=== PATIENT | male | born 1965 | race Caucasian/White ===

== ENCOUNTER 2019-03-03 12:14 | Emergency (ER) | payer SELFPAY ==
[2019-03-03] MEDS ORDERED: NA CHLORIDE 0.9% 1,000 ML ONE (13:45)
[2019-03-03] MEDS ORDERED: MORPHINE 4 MG/ML SYR ONE (13:45)
[2019-03-03] MEDS ORDERED: KETOROLAC 30 MG/ML INJ ONE (13:45)
[2019-03-03] MEDS ORDERED: ONDANSETRON 4 MG/2 ML VIAL ONE (13:57)
[2019-03-03 14:02] LABS: Absolute Lymphocytes (CBC) 1.6 K/uL (0.7-4.9); Basophils % 1.2 % (0-1.3); Hematocrit 38.9 % (39.6-49.0); Lymphocytes % 25.4 % (15.3-44.8); RBC Red Blood Cell Count 4.82 M/uL (4.33-5.43)
[2019-03-03 14:21] LABS: Albumin 3.3 g/dL (3.4-5.0); Bilirubin Total 0.3 mg/dL (0.2-1.0); Protein, Total 6.7 g/dL (6.4-8.2)
--- NOTE | 2019-03-03 14:35 | RAD REPORT ---
EXAM DESCRIPTION: CTSpine Lumbar Wo Con03/03/2019 1:59 pm CLINICAL HISTORY: Back injury with back pain and radiculopathy status post fall COMPARISON: None TECHNIQUE: Computed axial tomography lumbar spine was obtained with coronal and sagittal reconstruct ion. All CT scans are performed using dose optimization technique as appropriate and may include automated exposure control or mA/KV adjustment according to patient size. FINDINGS: No fracture is seen. No dislocation is noted. A significant bulging/disc herniation is not seen A 3 millimeter nonobstructing right renal calculus IMPRESSION: Negative for a lumbar fracture. If the patient continues to have symptoms to suggest spi nal canal pathology MRI would be recommended
[2019-03-03] MEDS ORDERED: dexAMETHasone 10 MG/ML VIAL ONE (14:52)
[2019-03-03] MEDS ORDERED: DIAZEPAM 5 MG TABLET ONE (14:53)
--- NOTE | 2019-03-03 14:57 | RAD REPORT ---
EXAM DESCRIPTION: RAD - Pelvis - 03/03/2019 2:39 pm CLINICAL HISTORY: Pelvic pain status post injury FINDINGS: No fracture or dislocation is seen.
--- NOTE | 2019-03-03 14:59 | RAD REPORT ---
EXAM DESCRIPTION: RAD - Hip Left 2 View - 03/03/2019 2:39 pm CLINICAL HISTORY: Left hip pain status post injury FINDINGS: No fracture or dislocation is seen.
--- NOTE | 2019-03-03 15:00 | RAD REPORT ---
EXAM DESCRIPTION: RAD - Femur Left - 03/03/2019 2:39 pm CLINICAL HISTORY: Left leg pain status post FINDINGS: No fracture is seen
--- NOTE | 2019-03-03 15:19 | ER ---
Nurse's Notes [facility] Name: Kalyan Banuelos Age: 53 yrs Sex: Male : 1965 Arrival Date: 03/03/2019 Time: 12:18 Bed 18 Private MD: Diagnosis: Fall due to bumping against object;Pain in left hip;Sciatica, left side Presentation: 03/03 12:18 Presenting complaint: Patient states: "I slipped and fell on wet floor and landed right aa5 on my left hip". Pt denies LOC, denies head injury, denies dizziness. Pt c/o left hip pain radiating down left leg. 12:18 Transition of care: patient was not received from another setting of care. Onset of aa5 symptoms was March 03, 2019. Risk Assessment: Do you want to hurt yourself or someone else? Patient reports no desire to harm self or others. Initial Sepsis Screen: Does the patient meet any 2 criteria? No. Patient's initial sepsis screen is negative. Does the patient have a suspected source of infection? No. Patient's initial sepsis screen is negative. Care prior to arrival: Medication(s) given: Fentanyl 100mcg IVP IV initiated. 20 GA, in the right antecubital area, Glucose check: 188. 12:18 Acuity: FREDERICK 3 aa5 12:18 Method Of Arrival: EMS: [facility] aa5 12:18 Mechanism of Injury: Fall from standing position. Trauma event details: Injury occurred aa5 in the [facility], Injury occurred: March 03, 2019. Trauma Activation: Not Applicable Physician: ED Physician; Name: ; Notified At: ; Arrived At: Physician: General Surgeon; Name: ; Notified At: ; Arrived At: Physician: Radiology; Name: ; Notified At: ; Arrived At: Physician: Respiratory; Name: ; Notified At: ; Arrived At: Physician: Lab; Name: ; Notified At: ; Arrived At: Historical: - Allergies: 12:18 Iodine; aa5 - PMHx: 12:18 Depression; Diabetes; Hyperlipidemia; aa5 - Ebola Screening: : No symptoms or risks identified at this time. Screenin:20 Abuse screen: Denies threats or abuse. Nutritional screening: No deficits noted. aa5 Tuberculosis screening: No symptoms or risk factors identified. Fall Risk Fall in past 12 months (25 points). IV access (20 points). Total [place] Fall Scale indicates High Risk Score (45 or more points). Fall prevention measures have been instituted. Side Rails Up X 2 Placed Close to Nursing Station. Primary Survey: 12:19 NO uncontrolled hemorrhage observed. A: The patient is alert. Airway: patent. aa5 Breathing/Chest: Chest inspection: symmetrical rise and fall of the chest. Circulation: Skin color: pink. Disability Alert. Exposure/Environment: A warming method has been applied: A warm blanket has been provided to the patient. 12:30 Reassessment Airway Airway Patent Breathing/Chest Chest inspection Symmetrical aa5 Circulation Color [place] Disability Alert. Secondary Survey: 12:19 HEENT: No deficits noted. Gastrointestinal: No deficits noted. : No deficits noted. aa5 Musculoskeletal: Reports pain in left leg and left hip. Assessment: 12:19 General: Appears uncomfortable, Behavior is calm, cooperative. Pain: Complains of pain aa5 in left leg and left hip Pain radiates to left leg Pain currently is 10 out of 10 on a pain scale. Quality of pain is described as sharp, shooting, Pain began post fall today Is continuous, Noted to be resistant to movement. Neuro: Level of Consciousness is awake, alert, obeys commands, Oriented to person, place, time, situation. EENT: No signs and/or symptoms were reported regarding the EENT system. Cardiovascular: Heart tones S1 S2 present Rhythm is regular. Respiratory: Airway is patent Respiratory effort is even, unlabored, Respiratory pattern is regular, symmetrical. GI: Abdomen is round Bowel sounds present X 4 quads. Abd is soft and non tender X 4 quads. Patient currently denies nausea, vomiting. : No signs and/or symptoms were reported regarding the genitourinary system. Derm: Skin is pink, warm \\T\\ dry. Musculoskeletal: Reports pain in left leg and left hip. 13:55 Reassessment: Pt taken to radiology via stretcher . aa5 13:55 Reassessment: Patient is alert, oriented x 3, equal unlabored respirations, skin aa5 warm/dry/pink. Patient states feeling better. 13:55 General: Appears comfortable. aa5 14:49 Reassessment: Patient is alert, oriented x 3, equal unlabored respirations, skin aa5 warm/dry/pink. Patient states symptoms have improved. 16:25 Reassessment: Patient is alert, oriented x 3, equal unlabored respirations, skin aa5 warm/dry/pink. Patient states feeling better. Vital Signs: 12:19 BP 125 / 81; Pulse 94; Resp 18 S; Temp 98.6(O); Pulse Ox 97% on R/A; Weight 134.72 kg aa5 (R); Height 6 ft. 0 in. (182.88 cm) (R); Pain 10/10; 12:30 BP 135 / 86; Pulse 87; Resp 16 S; Pulse Ox 99% on R/A; aa5 13:15 BP 132 / 76; Pulse 79; Resp 16 S; Pulse Ox 98% on R/A; aa5 14:50 BP 143 / 81; Pulse 75; Resp 16 S; Temp 98.3(TE); Pulse Ox 98% on R/A; aa5 15:50 BP 140 / 76; Pulse 75; Resp 16 S; Pulse Ox 98% on R/A; aa5 12:19 Body Mass Index 40.28 (134.72 kg, 182.88 cm) aa5 [place] Coma Score: 12:19 Eye Response: spontaneous(4). Verbal Response: oriented(5). Motor Response: obeys aa5 commands(6). Total: 15. Trauma Score (Adult): 12:19 Eye Response: spontaneous(1); Verbal Response: oriented(1); Motor Response: obeys aa5 commands(2); Systolic BP: > 89 mm Hg(4); Respiratory Rate: 10 to 29 per min(4); [place] Score: 15; Trauma Score: 12 12:30 Eye Response: spontaneous(1); Verbal Response: oriented(1); Motor Response: obeys aa5 commands(2); Systolic BP: > 89 mm Hg(4); Respiratory Rate: 10 to 29 per min(4); [place] Score: 15; Trauma Score: 12 13:15 Eye Response: spontaneous(1); Verbal Response: oriented(1); Motor Response: obeys aa5 commands(2); Systolic BP: > 89 mm Hg(4); Respiratory Rate: 10 to 29 per min(4); [place] Score: 15; Trauma Score: 12 14:50 Eye Response: spontaneous(1); Verbal Response: oriented(1); Motor Response: obeys aa5 commands(2); Systolic BP: > 89 mm Hg(4); Respiratory Rate: 10 to 29 per min(4); [place] Score: 15; Trauma Score: 12 15:50 Eye Response: spontaneous(1); Verbal Response: oriented(1); Motor Response: obeys aa5 commands(2); Systolic BP: > 89 mm Hg(4); Respiratory Rate: 10 to 29 per min(4); [place] Score: 15; Trauma Score: 12 ED Course: 12:18 Patient arrived in ED. hb 12:18 Arm band placed on Patient placed in an exam room, on a stretcher. aa5 12:18 Patient has correct armband on for positive identification. aa5 12:18 Patient maintains SpO2 saturation greater than 95% on room air. Thermoregulation: warm aa5 blanket given to patient. 12:19 Shayy Graham, RN is Primary Nurse. aa5 12:23 Triage completed. aa5 13:13 Howard Akins MD is Attending Physician. kaylene 13:59 CT completed. Patient moved to radiology. mw3 14:11 CT Lumbar Spine Wo Con In Process Unspecified. EDMS 14:41 Hip Left 2 View XRAY In Process Unspecified. EDMS 14:41 Pelvis XRAY In Process Unspecified. EDMS 14:41 Femur Left XRAY In Process Unspecified. EDMS 16:25 No provider procedures requiring assistance completed. IV discontinued, intact, aa5 bleeding controlled, No redness/swelling at site. Pressure dressing applied. Administered Medications: 13:50 Drug: NS 0.9% 1000 ml Route: IV; Rate: 1 bolus; Site: right antecubital; aa5 15:00 Follow up: IV Status: Completed infusion; IV Intake: 1000ml aa5 13:50 Drug: TORadol 30 mg Route: IVP; Site: right antecubital; aa5 13:55 Follow up: Response: No adverse reaction aa5 13:50 Drug: morphine 4 mg Route: IVP; Site: right antecubital; aa5 13:55 Follow up: Response: No adverse reaction aa5 13:50 Drug: Zofran 4 mg Route: IVP; Site: right antecubital; aa5 13:55 Follow up: Response: No adverse reaction aa5 14:49 Drug: Valium 5 mg Route: PO; aa5 16:20 Follow up: Response: No adverse reaction aa5 14:49 Drug: Decadron - Dexamethasone 10 mg Route: IVP; Site: right antecubital; aa5 15:00 Follow up: Response: No adverse reaction aa5 Intake: 14:49 PO: 30ml (Water); Total: 30ml. aa5 15:00 IV: 1000ml; Total: 1030ml. aa5 Outcome: 15:18 Discharge ordered by . kaylene 15:18 Patient's length of stay in the Emergency Department was greater than 2 hours. due to aa5 awaiting on orders from provider. Patient's length of stay extended due to 16:25 Discharged to home ambulatory, with significant other. aa5 16:25 Condition: improved 16:25 Discharge instructions given to patient, Instructed on discharge instructions, follow up and referral plans. medication usage, Demonstrated understanding of instructions, follow-up care, medications, Prescriptions given X 4. 16:34 Patient left the ED. aa5 Signatures: Dispatcher [employer] EDMS Howard Akins MD MD cha Calderon, Audri, RN RN aa5 Josee Thompson RN RN Brenda Brownlee [email or web address] Corrections: (The following items were deleted from the chart) 18:33 15:50 BP 140 / 76; Pulse 75bpm; Resp 16bpm; Spontaneous; Pulse Ox 98% RA; aa5 aa5 18:33 15:50 Janet Score=15, Trauma Score=12, aa5 aa5 18:34 15:15 BP 140 / 76; Pulse 75bpm; Resp 16bpm; Spontaneous; Pulse Ox 98% RA; aa5 aa5 18:34 15:15 [place] Score=15, Trauma Score=12, aa5 aa5
--- NOTE | 2019-03-03 15:20 | EDPHYS ---
Physician Documentation [facility] Name: Kalyan Banuelos Age: 53 yrs Sex: Male : 1965 Arrival Date: 03/03/2019 Time: 12:18 Bed 18 Private MD: ED Physician Howard Akins HPI: 03/03 13:33 This 53 yrs old Male presents to ER via EMS with complaints of Fall Injury. kaylene 13:33 Details of fall: The patient fell from an upright position, while walking. Onset: The kaylene symptoms/episode began/occurred just prior to arrival. Associated injuries: The patient sustained left hip and left upper thigh, decreased range of motion, painful injury, swelling. Historical: - Allergies: 12:18 Iodine; aa5 - PMHx: 12:18 Depression; Diabetes; Hyperlipidemia; aa5 - Ebola Screening: : No symptoms or risks identified at this time. ROS: 13:36 Constitutional: Negative for fever, chills, and weight loss, Eyes: Negative for injury, kaylene pain, redness, and discharge, ENT: Negative for injury, pain, and discharge, Neck: Negative for injury, pain, and swelling, Cardiovascular: Negative for chest pain, palpitations, and edema, Respiratory: Negative for shortness of breath, cough, wheezing, and pleuritic chest pain, Abdomen/GI: Negative for abdominal pain, nausea, vomiting, diarrhea, and constipation, : Negative for injury, bleeding, discharge, and swelling, Skin: Negative for injury, rash, and discoloration, Neuro: Negative for headache, weakness, numbness, tingling, and seizure, Psych: Negative for depression, anxiety, suicide ideation, homicidal ideation, and hallucinations, Allergy/Immunology: Negative for hives, rash, and allergies, Endocrine: Negative for neck swelling, polydipsia, polyuria, polyphagia, and marked weight changes, Hematologic/Lymphatic: Negative for swollen nodes, abnormal bleeding, and unusual bruising. 13:36 Back: Positive for injury or acute deformity, decreased range of motion, pain at rest, pain with movement. 13:36 MS/extremity: Positive for decreased range of motion, pain, swelling, tenderness, of the left hip and left upper thigh. 13:36 Skin: Exam: 13:36 Constitutional: This is a well developed, well nourished patient who is awake, alert, kaylene and in no acute distress. Head/Face: Normocephalic, atraumatic. Eyes: Pupils equal round and reactive to light, extra-ocular motions intact. Lids and lashes normal. Conjunctiva and sclera are non-icteric and not injected. Cornea within normal limits. Periorbital areas with no swelling, redness, or edema. ENT: Nares patent. No nasal discharge, no septal abnormalities noted. Tympanic membranes are normal and external auditory canals are clear. Oropharynx with no redness, swelling, or masses, exudates, or evidence of obstruction, uvula midline. Mucous membranes moist. Neck: Trachea midline, no thyromegaly or masses palpated, and no cervical lymphadenopathy. Supple, full range of motion without nuchal rigidity, or vertebral point tenderness. No Meningismus. Chest/axilla: Normal chest wall appearance and motion. Nontender with no deformity. No lesions are appreciated. Cardiovascular: Regular rate and rhythm with a normal S1 and S2. No gallops, murmurs, or rubs. Normal PMI, no JVD. No pulse deficits. Respiratory: Lungs have equal breath sounds bilaterally, clear to auscultation and percussion. No rales, rhonchi or wheezes noted. No increased work of breathing, no retractions or nasal flaring. Abdomen/GI: Soft, non-tender, with normal bowel sounds. No distension or tympany. No guarding or rebound. No evidence of tenderness throughout. Male : Normal genitalia with no discharge or lesions. Skin: Warm, dry with normal turgor. Normal color with no rashes, no lesions, and no evidence of cellulitis. Neuro: Awake and alert, GCS 15, oriented to person, place, time, and situation. Cranial nerves II-XII grossly intact. Motor strength 5/5 in all extremities. Sensory grossly intact. Cerebellar exam normal. Normal gait. Psych: Awake, alert, with orientation to person, place and time. Behavior, mood, and affect are within normal limits. 13:36 Back: pain, that is mild, ROM is painful, with flexion, with extension, normal spinal alignment noted, CVA tenderness, is absent, vertebral tenderness, is not appreciated, muscle spasm, is appreciated in the left low back and left mid back. 13:36 Musculoskeletal/extremity: Extremities: decreased ROM, pain, ROM: limited active range kaylene of motion, limited passive range of motion, Circulation is intact in all extremities. Sensation intact. Compartment Syndrome exam of affected extremity: is normal. DVT Exam: no swelling, negative Homans' sign noted on exam, no appreciated bluish discoloration, no erythema, no increased warmth, pain, tenderness. Vital Signs: 12:19 BP 125 / 81; Pulse 94; Resp 18 S; Temp 98.6(O); Pulse Ox 97% on R/A; Weight 134.72 kg aa5 (R); Height 6 ft. 0 in. (182.88 cm) (R); Pain 10/10; 12:30 BP 135 / 86; Pulse 87; Resp 16 S; Pulse Ox 99% on R/A; aa5 13:15 BP 132 / 76; Pulse 79; Resp 16 S; Pulse Ox 98% on R/A; aa5 14:50 BP 143 / 81; Pulse 75; Resp 16 S; Temp 98.3(TE); Pulse Ox 98% on R/A; aa5 15:50 BP 140 / 76; Pulse 75; Resp 16 S; Pulse Ox 98% on R/A; aa5 12:19 Body Mass Index 40.28 (134.72 kg, 182.88 cm) aa5 [place] Coma Score: 12:19 Eye Response: spontaneous(4). Verbal Response: oriented(5). Motor Response: obeys aa5 commands(6). Total: 15. Trauma Score (Adult): 12:19 Eye Response: spontaneous(1); Verbal Response: oriented(1); Motor Response: obeys aa5 commands(2); Systolic BP: > 89 mm Hg(4); Respiratory Rate: 10 to 29 per min(4); [place] Score: 15; Trauma Score: 12 12:30 Eye Response: spontaneous(1); Verbal Response: oriented(1); Motor Response: obeys aa5 commands(2); Systolic BP: > 89 mm Hg(4); Respiratory Rate: 10 to 29 per min(4); [place] Score: 15; Trauma Score: 12 13:15 Eye Response: spontaneous(1); Verbal Response: oriented(1); Motor Response: obeys aa5 commands(2); Systolic BP: > 89 mm Hg(4); Respiratory Rate: 10 to 29 per min(4); Janet Score: 15; Trauma Score: 12 14:50 Eye Response: spontaneous(1); Verbal Response: oriented(1); Motor Response: obeys aa5 commands(2); Systolic BP: > 89 mm Hg(4); Respiratory Rate: 10 to 29 per min(4); Janet Score: 15; Trauma Score: 12 15:50 Eye Response: spontaneous(1); Verbal Response: oriented(1); Motor Response: obeys aa5 commands(2); Systolic BP: > 89 mm Hg(4); Respiratory Rate: 10 to 29 per min(4); [place] Score: 15; Trauma Score: 12 MDM: 13:13 Patient medically screened. [facility] 13:38 Data reviewed: vital signs, nurses notes, lab test result(s), radiologic studies, CT kaylene scan, plain films. 03/03 13:32 Order name: CBC with Diff [facility] 03/03 13:32 Order name: Comprehensive Metabolic Panel; Complete Time: 14:25 [facility] 03/03 13:32 Order name: CT Lumbar Spine Wo Con; Complete Time: 14:54 [facility] 03/03 13:32 Order name: Hip Left 2 View XRAY; Complete Time: 15:16 [facility] 03/03 13:32 Order name: Pelvis XRAY; Complete Time: 15:16 [facility] 03/03 13:32 Order name: Femur Left XRAY; Complete Time: 15:16 [facility] Administered Medications: 13:50 Drug: NS 0.9% 1000 ml Route: IV; Rate: 1 bolus; Site: right antecubital; aa5 15:00 Follow up: IV Status: Completed infusion; IV Intake: 1000ml aa5 13:50 Drug: TORadol 30 mg Route: IVP; Site: right antecubital; aa5 13:55 Follow up: Response: No adverse reaction aa5 13:50 Drug: morphine 4 mg Route: IVP; Site: right antecubital; aa5 13:55 Follow up: Response: No adverse reaction aa5 13:50 Drug: Zofran 4 mg Route: IVP; Site: right antecubital; aa5 13:55 Follow up: Response: No adverse reaction aa5 14:49 Drug: Valium 5 mg Route: PO; aa5 16:20 Follow up: Response: No adverse reaction aa5 14:49 Drug: Decadron - Dexamethasone 10 mg Route: IVP; Site: right antecubital; aa5 15:00 Follow up: Response: No adverse reaction aa5 Disposition: 03/03/19 15:18 Discharged to Home. Impression: Fall due to bumping against object, Pain in left hip, Sciatica, left side. - Condition is Stable. - Discharge Instructions: Musculoskeletal Pain, Sciatica, Hip Pain, Sciatica, [id number]. - Prescriptions for Ibuprofen 600 mg Oral Tablet - take 1 tablet by ORAL route every 8 hours As needed take with food; 21 tablet. Tylenol- Codeine #3 300-30 mg Oral Tablet - take 2 tablet by ORAL route every 6 hours As needed; 30 tablet. Valium 5 mg Oral Tablet - take 1 tablet by ORAL route every 8 hours As needed; 20 tablet. Medrol (Ty) 4 mg Oral Tablets, Dose Pack - take 1 tablet by ORAL route as directed - follow package instructions; 1 packet. - Medication Reconciliation Form, Thank You Letter, Antibiotic Education, Prescription Opioid Use, Work release form form. - Follow up: Private Physician; When: 2 - 3 days; Reason: Recheck today's complaints, Continuance of care, Re-evaluation by your physician. - Problem is new. - Symptoms have improved. Signatures: Dispatcher [employer] EDMS Howard Akins MD MD cha Calderon, Audri, RN RN aa5 Corrections: (The following items were deleted from the chart) 16:34 15:18 03/03/2019 15:18 Discharged to Home. Impression: Fall due to bumping against aa5 object; Pain in left hip; Sciatica, left side. Condition is Stable. Discharge Instructions: Musculoskeletal Pain, Sciatica, Hip Pain, Sciatica, [id number]. Prescriptions for Ibuprofen 600 mg Oral Tablet - take 1 tablet by ORAL route every 8 hours As needed take with food; 21 tablet, Tylenol-Codeine #3 300-30 mg Oral Tablet - take 2 tablet by ORAL route every 6 hours As needed; 30 tablet, Valium 5 mg Oral Tablet - take 1 tablet by ORAL route every 8 hours As needed; 20 tablet, Medrol (Ty) 4 mg Oral Tablets, Dose Pack - take 1 tablet by ORAL route as directed - follow package instructions; 1 packet. and Forms are Medication Reconciliation Form, Thank You Letter, Antibiotic Education, Prescription Opioid Use. Follow up: Private Physician; When: 2 - 3 days; Reason: Recheck today's complaints, Continuance of care, Re-evaluation by your physician. Problem is new. Symptoms have improved. kaylene
[2019-03-03] MEDS ORDERED: SMZ./TMP. 800/160 MG TABLET ONE (17:58)
[2019-03-03] MEDS ORDERED: NA CHLORIDE 0.9% 500 ML ONE (17:59)
[2019-03-03] MEDS ORDERED: DOXYCYCLINE 100 MG CAP PO ONE (17:59)
== END 2019-03-03 16:34 | disposition home or self-care (01) ==
LOC: ER 12:14
DX: M25.552 Pain in left hip (principal); M54.32 Sciatica, left side; W01.0XXA Fall on same level from slipping, tripping and stumbling without subsequent striking against object, initial encounter; Y93.9 Activity, unspecified; Y92.9 Unspecified place or not applicable; Z91.09 Other allergy status, other than to drugs and biological substances
CPT/HCPCS: 36415; 72131; 72170; 80053; 85025; 96361; 96374; 96375; 99284; J1100; J2405; J7030

== ENCOUNTER 2020-01-13 08:58 | Emergency (ER) | payer OTHER ==
[2020-01-13] MEDS ORDERED: ONDANSETRON 4 MG/2 ML VIAL ONE (09:35)
[2020-01-13] MEDS ORDERED: FAMOTIDINE 20 MG/2 ML VIAL IV ONE (09:35)
[2020-01-13 10:07] LABS: Basophils % 0.5 % (0-1.3); Hematocrit 42.7 % (39.6-49.0); Lymphocytes % 12.5 % (15.3-44.8); MPV 8.7 fL (7.6-11.3); RBC Red Blood Cell Count 5.25 M/uL (4.33-5.43)
[2020-01-13 10:10] LABS: Protime INR 1.12
[2020-01-13] MEDS ORDERED: NA CHLORIDE 0.9% 1,000 ML ONE (10:17)
[2020-01-13] MEDS ORDERED: ACETAMINOPHEN 500 MG TAB ONE (10:17)
[2020-01-13 10:22] LABS: ALT/SGPT 144 U/L (12-78); AST/SGOT 79 U/L (15-37); Albumin 3.8 g/dL (3.4-5.0); Alkaline Phosphatase 89 U/L (45-117); BUN Blood Urea Nitrogen 15 mg/dL (7-18); Bicarbonate 25 mmol/L (21-32); Bilirubin Direct < 0.1 mg/dL (0-0.2); Bilirubin Total 0.3 mg/dL (0.2-1.0); Glucose Level 176 mg/dL (74-106); Magnesium 2.2 mg/dL (1.8-2.4); NT PRO-BNP 32 pg/mL (<125); Potassium 4.3 mmol/L (3.5-5.1); Protein, Total 8.4 g/dL (6.4-8.2); Sodium Level 139 mmol/L (136-145); Troponin (Emerg Dept Use Only) < 0.02 ng/mL (0.0-0.045)
--- OUTSIDE RECORDS SUMMARY | 2020-01-13 10:26 | XMS REPORT | Continuity of Care Document ---
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 ACDF. IMPRESSION: 1. No acute cardiopulmonary abnormality. SL: 24 Chest 1view DX Portable one view AP chest, Aug 04, 2015 03:33:0 0 PM 08/04/2015 [facility] CLINICAL HISTORY: Chest pain ; See Clinic Indic ation TECHNIQUE: Routine AP view of the chest was obt ained. COMPARISON: 01/20/2015 FINDINGS: Lungs are present, but clear . No pleural effusion or radiographically detectable pneumothorax is present. Cardiomediastinal silhouette is normal. Bones are normal. IMPRESSION: No acute abnormality of the chest. Pulmonary emp hysematous changes SL: [address] NAME: DARCIE KYLE 05/20/2015 [facility] : 1965 SEX: M 77 Ordering Physician: David Morton Brain wo contrast CT : May 20, 2015 11:07:00 AM. CLINICAL INDICATION: Head trauma , fall injury, trauma to head, hit back of head on metal staircase Comparison Examination: 02/06/2009. TECHNIQUE: CT of the head wa s performed without administration of intravenous contrast. Coronal and sagittal reconstructions were obtained. Total DLP = 935.82 mGy/cm FINDINGS: There is no CT evidence of a cute intracranial hemorrhage, mass, mass effect, or midline shift. No hydrocephalus. Calvarium is intact. No acut e imaging abnormality of the orbits or paranasal sinuses. There is no CT evidence of s troke. If there is continued concern, MRI should be performed for further assessment. IMPRESSION: No CT evidence of acute intracranial process. SL: 24 Chest 1view DX Examination: Chest x-ray, single view 01/20/2015 [facility] History: Chest pain Comparison: None. Findings: The lungs are jen r and without focal consolidation. The cardiomediastinal silhouette is within normal limits. No pleural effusion or pneumothorax is seen. Fusion hardware in the lower cervical spine is s een. IMPRESSION: No acute cardiopulmonary disease. SL: 16 Pelvis AP DX Examination: Pelvis, single view 01/20/2015 [facility] History: Pain Post injury Comparison: None. Findings: Single frontal vie w of the pelvis shows no displaced bony fracture or joint dislocation. IMPRESSION: No acute bony abnormality of the pel vis. SL: 16 Consultation Notes No Data Provided for This Section Discharge Summaries No Data Provided for This Section History and Physicals No Data Provided for This Section Vital Signs Vital Sign Value Date Comments Source Heart Rate 89 12/22/2016 [facility] Temperature Oral (F) 98.7 F 12/22/2016 [facility] Systolic (mm Hg) 140 12/22/2016 [facility] Diastolic (mm Hg) 85 12/22/2016 [facility] Respitory Rate 17 12/22/2016 [facility] it Temperature Oral (F) 98.7 F 12/22/2016 [facility] Heart Rate 97 12/22/2016 [facility] Respitory Rate 19 12/22/2016 [facility] it Systolic (mm Hg) 162 12/22/2016 [facility] Diastolic (mm Hg) 90 12/22/2016 [facility] Systolic (mm Hg) 140 12/22/2016 [facility] Diastolic (mm Hg) 77 12/22/2016 [facility] Heart Rate 84 12/22/2016 [facility] Temperature Oral (F) 98.4 F 12/22/2016 [facility] Weight 136.364 12/21/2016 [facility] BMI Calculated 39.66 12/21/2016 [facility] ity Height 185.42 cm 12/21/2016 [facility] Respitory Rate 20 12/21/2016 [facility] Heart Rate 95 08/15/2015 [facility] Systolic (mm Hg) 166 08/15/2015 [facility] [place] [facility] Diastolic (mm Hg) 78 08/15/2015 [facility] Respitory Rate 18 08/15/2015 [facility] Resp[facility] Rate 16 08/15/2015 [facility] nds Heart Rate 94 08/15/2015 [facility] Systolic (mm Hg) 165 08/15/2015 [facility] [place] [facility] Diastolic (mm Hg) 77 08/15/2015 [facility] Height 182.88 cm 08/15/2015 [facility] Weight 129.545 08/15/2015 [facility] BMI Calculated 38.73 08/15/2015 [facility] Heart Rate 110 08/15/2015 [facility] Respitory Rate 24 08/15/2015 [facility] Systolic (mm Hg) 127 08/15/2015 [facility] [place] [facility] Diastolic (mm Hg) 89 08/15/2015 [facility] Respitory Rate 18 08/05/2015 [facility] Systolic (mm Hg) 145 08/05/2015 [facility] t Diastolic (mm Hg) 74 08/05/2015 [facility] st Temperature Oral (F) 98.1 F 08/05/2015 [place] Heart Rate 80 08/05/2015 [facility] Systolic (mm Hg) 131 08/05/2015 [facility] t Diastolic (mm Hg) 72 08/05/2015 [facility] st Respitory Rate 19 08/05/2015 [facility] Heart Rate 86 08/05/2015 [facility] Temperature Oral (F) 97.8 F 08/05/2015 [facility] hwe Temperature Oral (F) 97.9 F 08/05/2015 [facility] Systolic (mm Hg) 125 08/05/2015 [facility] t Diastolic (mm Hg) 77 08/05/2015 [facility] Respitory Rate 19 08/05/2015 [facility] Heart Rate 68 08/05/2015 [facility] Weight 134.318 08/05/2015 [facility] BMI Calculated 41.3 08/05/2015 [facility] Height 180.34 cm 08/05/2015 [facility] BMI Calculated 41.67 08/04/2015 [facility] Weight 128 08/04/2015 [facility] Height 175.26 cm 08/04/2015 [facility] Heart Rate 69 05/20/2015 [facility] Systolic (mm Hg) 147 05/20/2015 [facility] [place] [facility] Diastolic (mm Hg) 90 05/20/2015 [facility] Respitory Rate 16 05/20/2015 [facility] nds Temperature Oral (F) 98.2 F 05/20/2015 [place] BMI Calculated 38.05 05/20/2015 [facility] Weight 127.273 05/20/2015 [facility] Height 182.88 cm 05/20/2015 [facility] Temperature Oral (F) 98.4 F 05/20/2015 [place] Respitory Rate 18 05/20/2015 [facility] Heart Rate 78 05/20/2015 [facility] Systolic (mm Hg) 164 05/20/2015 [facility] [place] [facility] Diastolic (mm Hg) 103 05/20/2015 [facility] Systolic (mm Hg) 139 01/20/2015 [facility] t Diastolic (mm Hg) 87 01/20/2015 [facility] st Heart Rate 93 01/20/2015 [facility] Respitory Rate 18 01/20/2015 [facility] Temperature Oral (F) 98.7 F 01/20/2015 [facility] BMI Calculated 30.58 01/20/2015 [facility] Weight 102.273 01/20/2015 [facility] Height 182.88 cm 01/20/2015 [facility] Systolic (mm Hg) 147 01/20/2015 [facility] Diastolic (mm Hg) 89 01/20/2015 [facility] st Heart Rate 96 01/20/2015 [facility] Respitory Rate 18 01/20/2015 [facility] Encounters Location Location Encounter Encounter Reason Attending ADM DC Stat us Source Details Type Number For Provider Date Date Visit [facility] Emergency [id number] Sonia 01/20 01[facility] Nidia [facility] Emergency [id number] David Morton 05/20 05/20 [facility] [place] OBS [id number] Lucien Hernandez 08/04 08/05 [facility] [id number] Michael 08/15 08/15 [facility] Center 4 Gautam /2015 [facility] [place] Emergency [id number] Olegario 12/21 12/22 [place] 5 Facundo /2016 [facility] Procedures Procedure Code Date Perfomer Comments Source ACL - Reconstruction [id number] of anterior cruciate Aurel[facility], ligament [facility] Ankle joint [id number] [facility] Cervical laminectomy [id number] [facility] Cholecystectomy [id number] [facility] Hernia repair [id number] [facility] Shoulder joint [id number] [facility] Tonsillectomy [id number] [facility] Assessment and Plan No Data Provided for This Section Plan of Care No Data Provided for This Section Social History Social History Date Source Social History TypeResponse 08/05/2015 [facility] Substance Abuse Use: None. Alcohol Current, Frequency: 1-2 times per month. Smoking Status Never smoker; Previous treatment: None; Ready to change: No; Concerns about tobacco use in household: No; Exposure to Tobacco Smoke None; Cigarette Smoking Last 365 Days No; Reg Smoking Cessation Counseling No Social History TypeResponse 08/05/2015 [facility] Substance Abuse Use: None. Alcohol Current, Frequency: 1-2 times per month. Smoking Status Never smoker; Previous treatment: None; Ready to change: No; Concerns about tobacco use in household: No; Exposure to Tobacco Smoke None; Cigarette Smoking Last 365 Days No; Reg Smoking Cessation Counseling No Social History TypeResponse 08/05/2015 [facility] Substance Abuse Use: None. Alcohol Current, Frequency: 1-2 times per month. Smoking Status Never smoker; Previous treatment: None; Ready to change: No; Concerns about tobacco use in household: No; Exposure to Tobacco Smoke None; Cigarette Smoking Last 365 Days No; Reg Smoking Cessation Counseling No Family History No Data Provided for This Section Advance Directives No Data Provided for This Section Functional Status No Data Provided for This Section
--- OUTSIDE RECORDS SUMMARY | 2020-01-13 10:30 | XMS REPORT | Continuity of Care Document ---
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 2015-08-04 21:54:0032.5[facility] PkjbbnjLAZTNGDFNZ4797-80-25 21:54:008.9[facility] UyovyewMACYKNTSCK1108-85-30 21:54:0016.5[facility] UfusbbaQYNTIRBJOH1037-84-43 21:54:0014.2[facility] UhhdcrsCMFYPACIBI7004-29-43 21:54:0043.6[facility] PHQPKLCHTR4149-98-58 21:54:40201Rjmcgbmn KmgadeaROMDNKICMI4568-58-53 21:54:00 5.25[facility] WrshhimXAWVSNUQQR4051-75-24 21:54:008.1[facility]annHEMATOLOGY 2015-08-04 21:54:0083.0[facility] IqyqyknPMWGWHGFKV6802-76-28 21:54:00 Test Item Value Reference Range Interpretation Comments MCH (test code = MCH) 27.0 pg 27.0-31.0 [facility] UsavijiLMQOCHORUB0734-14-15 21:54:000.29[facility]annHEMATOLOGY 2015-08-04 21:54:000.1[facility] SnkohxzWFCHLDAYGG8339-15-10 21:54:002.5[facility] KuvzpflQLURIINGOL6171-80-95 21:54:002.3[facility] KhavagoFJXQDZEOXP2568-24-51 21:54:000.7[facility] WhcgwhrZKCPQAZBFS7894-25-77 21:54:006.8[facility] FSMAUWIASZ5804-92-16 21:54:004.8[facility] KsxqkpqYGQIDPWMKP5330-79-10 21:54:00 59.2[facility] UpoehzsKYNPCDZIQW9432-74-08 21:54:000.2[facility]annHEMATOLOGY 2015-08-04 21:54:000.6[facility] LtadyxwYVSNBVCEIN4755-93-84 21:54:0031.0[facility]
--- NOTE | 2020-01-13 10:36 | RAD REPORT ---
EXAM DESCRIPTION: Lance Single View01/13/2020 10:15 am CLINICAL HISTORY: Cough COMPARISON: none FINDINGS: The lungs appear clear of acute infiltrate. The heart is normal size IMPRESSION: No acute abnormalities displayed
--- NOTE | 2020-01-13 11:06 | ER ---
Nurse's Notes [facility] Name: Kalyan Banuelos Age: 54 yrs Sex: Male : 1965 Arrival Date: 01/13/2020 Time: 09:02 Bed 26 Private MD: Diagnosis: Acute bronchitis, unspecified;SARS-associated coronavirus as the cause of diseases classified elsewhere Presentation: 01/12 09:12 Chief complaint: Patient states: Feeling ill x 5 days. Swabbed at urgent care two days ss ago for COVID and learned that it was positive this morning. Pt is concerned because he is feeling worse with fever, shortness of breath, N/V and diarrhea. Coronavirus screen: Surgical mask placed on patient. Patient moved to private room, placed in contact and droplet isolation with eye protection until further assessment. Patient reports a cough. Patient reports shortness of breath or difficulty breathing. Patient reports a measured and/or subjective temperature greater than 100.4F. Ebola Screen: Patient denies exposure to infectious person. Patient denies travel to an Ebola-affected area in the 21 days before illness onset. Initial Sepsis Screen: Does the patient meet any 2 criteria? No. Patient's initial sepsis screen is negative. Does the patient have a suspected source of infection? No. Patient's initial sepsis screen is negative. Risk Assessment: Do you want to hurt yourself or someone else? Patient reports no desire to harm self or others. Onset of symptoms was January 08, 2020. 09:12 Method Of Arrival: Ambulatory ss 09:12 Acuity: FREDERICK 3 ss Historical: - Allergies: 09:14 Iodine; ss - PMHx: 09:14 Depression; Diabetes; Hyperlipidemia; GERD; Hypertension; ss - Immunization history:: Adult Immunizations up to date. - Social history:: Smoking status: Patient denies any tobacco usage or history of. Screenin:40 Abuse screen: Denies threats or abuse. Denies injuries from another. Nutritional sv screening: No deficits noted. Tuberculosis screening: No symptoms or risk factors identified. Fall Risk None identified. Assessment: 09:40 General: Appears in no apparent distress. uncomfortable, well developed, Behavior is sv calm, cooperative, appropriate for age. General: Reports fever for > 3 days. Pain: Complains of pain in right ear, left ear, right leg and left leg. Neuro: Level of Consciousness is awake, alert, obeys commands, Oriented to person, place, time, situation, Moves all extremities. Full function Gait is steady, Speech is normal. Cardiovascular: Patient's skin is warm and dry. Rhythm is sinus rhythm Chest pain is denied. Respiratory: Reports shortness of breath at rest on exertion cough that is non-productive, dry, persistent Airway is patent Respiratory effort is even, unlabored, Respiratory pattern is symmetrical, tachypnea. GI: Reports nausea. EENT: Reports pain in left ear and right ear Informed Howard MOE of pt's pain in ears and BLE. Derm: Skin is intact, Skin is pink, warm \T\ dry. Musculoskeletal: Range of motion: intact in all extremities. 10:34 Reassessment: Rena torres [phone]. sv 11:26 Reassessment: Patient appears in no apparent distress at this time. No changes from sv previously documented assessment. Patient and/or family updated on plan of care and expected duration. Pain level reassessed. Patient is alert, oriented x 3, equal unlabored respirations, skin warm/dry/pink. Vital Signs: 09:12 BP 118 / 67; Pulse 83; Resp 18; Temp 99.1(TE); Pulse Ox 95% on R/A; Weight 139.25 kg; ss Height 6 ft. 0 in. (182.88 cm); Pain 5/10; 09:30 BP 115 / 64; Pulse 81; Resp 26; Pulse Ox 94% on R/A; sv 10:15 BP 120 / 69; Pulse 80; Resp 27; Pulse Ox 96% on R/A; sv 11:00 BP 125 / 76; Pulse 80; Resp 28; Pulse Ox 99% on R/A; sv 09:12 Body Mass Index 41.64 (139.25 kg, 182.88 cm) ED Course: 09:02 Patient arrived in ED. mr 09:13 Triage completed. ss 09:14 Arm band placed on right wrist. ss 09:16 Howard Glez PA is PHCP. cp 09:16 Howard Akins MD is Attending Physician. cp 09:21 Rena Emanuel, RN is Primary Nurse. sv 09:40 Patient has correct armband on for positive identification. Bed in low position. Call sv light in reach. Side rails up X 1. stna on. Pulse ox on. NIBP on. Door closed. Head of bed elevated. 09:47 First set of blood cultures drawn by me. Inserted saline lock: 20 gauge in right sv antecubital area, using aseptic technique. Blood collected. Flushed right antecubital with 5 ml normal saline. 09:55 Second set of blood cultures drawn by me. sv 10:00 One-on-one care X 15 minutes. sv 10:05 X-ray(s) taken. sv 10:06 Basic Metabolic Panel Sent. sv 10:06 XRAY Chest (1 view) Sent. sv 10:06 LFT's Sent. sv 10:16 XRAY Chest (1 view) In Process Unspecified. EDMS 10:29 EKG done, by ED staff, reviewed by Howard MOE. sv Administered Medications: 10:04 Drug: Zofran (Ondansetron) 4 mg Route: IVP; Site: right antecubital; sv 10:30 Follow up: Response: No adverse reaction sv 10:06 Drug: Pepcid 20 mg Route: IVP; Site: right antecubital; sv 10:30 Follow up: Response: No adverse reaction sv 10:29 Drug: Tylenol 1000 mg Route: PO; sv 10:30 Follow up: Response: No adverse reaction sv 10:29 Drug: NS 0.9% 1000 ml Route: IV; Rate: 1000 ml/hr; Site: right antecubital; sv 11:30 Follow up: Response: No adverse reaction; IV Status: Completed infusion; IV Intake: sv 1000ml 12:09 Drug: Decadron - Dexamethasone 6 mg Route: IVP; Site: right antecubital; sv 12:09 Drug: Tussionex Pennkinetic ER 5 ml Route: PO; sv Intake: 11:30 IV: 1000ml; Total: 1000ml. sv Outcome: 11:06 Discharge ordered by . cp 12:13 Patient left the ED. sv Signatures: Dispatcher [employer] EDMS Rena Emanuel, RN Areli Mabry Shelby, RN RN Howard Mishra PA PA cp
--- NOTE | 2020-01-13 11:06 | EDPHYS ---
Physician Documentation [facility] Name: Kalyan Banuelos Age: 54 yrs Sex: Male : 1965 Arrival Date: 01/13/2020 Time: 09:02 Bed 26 Private MD: AUGUST Physician Howard Akins HPI: 01/12 09:38 This 54 yrs old Male presents to ER via Ambulatory with complaints of COVID positive, cp Shortness Of Breath, Fever, Nausea/Vomiting. 09:38 The patient has shortness of breath at rest. Onset: The symptoms/episode began/occurred cp today. 09:38 Associated signs and symptoms: Pertinent positives: chest pain, productive cough, cp fever, nausea, vomiting, diarrhea. Patient reports learning of testing positive for Coronavirus today. Symptoms started 5 days ago but are worse today. Historical: - Allergies: 09:14 Iodine; ss - PMHx: 09:14 Depression; Diabetes; Hyperlipidemia; GERD; Hypertension; ss - Immunization history:: Adult Immunizations up to date. - Social history:: Smoking status: Patient denies any tobacco usage or history of. ROS: 09:40 Constitutional: Negative for fever, poor PO intake. cp 09:40 Eyes: Negative for injury, pain, redness, and discharge. cp 09:40 ENT: Positive for ear pain, sore throat, Negative for drainage from ear(s), difficulty swallowing, difficulty handling secretions. 09:40 Neck: Negative for pain with movement, pain at rest, stiffness. 09:40 Cardiovascular: Positive for chest pain, Negative for edema, palpitations. 09:40 Respiratory: Positive for cough, "sounds productive", shortness of breath, Negative for wheezing. 09:40 Abdomen/GI: Positive for nausea, vomiting, and diarrhea, Negative for abdominal pain, constipation, hematemesis, black/tarry stool, rectal bleeding. 09:40 Neuro: Negative for altered mental status, headache, weakness. 09:40 All other systems are negative. Exam: 09:45 Head/Face: Normocephalic, atraumatic. cp 09:45 Constitutional: The patient appears in no acute distress, alert, awake, non-diaphoretic, non-toxic, well developed, well nourished, obese. 09:45 Eyes: Periorbital structures: appear normal, Conjunctiva: normal, no exudate, no injection, Sclera: no appreciated abnormality, Lids and lashes: appear normal, bilaterally. 09:45 ENT: External ear(s): are unremarkable, Nose: is normal, Posterior pharynx: Airway: no evidence of obstruction, patent. 09:45 Neck: ROM/movement: is normal, is supple, without pain, no range of motions limitations, no meningismus, no nuchal rigidity. 09:45 Chest/axilla: Inspection: normal, Palpation: is normal, no crepitus, no tenderness. 09:45 Cardiovascular: Rate: normal, Rhythm: regular, Edema: is not appreciated, JVD: is not appreciated. 09:45 Respiratory: the patient does not display signs of respiratory distress, Respirations: labored breathing, is not present, accessory muscle usage, is absent, intercostal retractions, are absent, Breath sounds: bronchial sounds, that are mild, are heard diffusely, decreased breath sounds, are not appreciated, stridor, is not appreciated, wheezing: is not appreciated. 09:45 Abdomen/GI: Inspection: obese Bowel sounds: active, all quadrants, Palpation: abdomen is soft and non-tender, in all quadrants. 10:30 ECG was reviewed by the Attending Physician. Vital Signs: 09:12 BP 118 / 67; Pulse 83; Resp 18; Temp 99.1(TE); Pulse Ox 95% on R/A; Weight 139.25 kg; ss Height 6 ft. 0 in. (182.88 cm); Pain 5/10; 09:30 BP 115 / 64; Pulse 81; Resp 26; Pulse Ox 94% on R/A; sv 10:15 BP 120 / 69; Pulse 80; Resp 27; Pulse Ox 96% on R/A; sv 11:00 BP 125 / 76; Pulse 80; Resp 28; Pulse Ox 99% on R/A; sv 09:12 Body Mass Index 41.64 (139.25 kg, 182.88 cm) ss MDM: 09:21 Patient medically screened. kaylene 10:00 Differential diagnosis: Bronchitis Myocardial Infarction pneumonia, pulmonary edema, cp Pulmonary Embolism Sepsis. 11:05 Antibiotic administration: The patient is discharged and will get outpatient antibiotics, Zithromax. Data reviewed: vital signs, nurses notes, lab test result(s), EKG, radiologic studies, plain films. Test interpretation: by ED physician or midlevel provider: ECG. Counseling: I had a detailed discussion with the patient and/or guardian regarding: the historical points, exam findings, and any diagnostic results supporting the discharge/admit diagnosis, lab results, radiology results, the need for outpatient follow up, a family practitioner, to return to the emergency department if symptoms worsen or persist or if there are any questions or concerns that arise at home. Response to treatment: the patient's symptoms have markedly improved after treatment, VSS. Patient appears non-toxic and no signs of respiratory distress noted. Nausea improved and no vomiting observed, and as a result, I will discharge patient. 01/12 09:35 Order name: Basic Metabolic Panel cp 01/12 09:35 Order name: CBC with Diff; Complete Time: 10:35 cp 01/12 10:35 Interpretation: Normal except: MCH 26.9; RDW 15.9; GRANT% 81.3; LYM% 12.5. cp 01/12 09:35 Order name: LFT's cp 01/12 09:35 Order name: Magnesium; Complete Time: 10:35 cp 01/12 09:35 Order name: NT PRO-BNP; Complete Time: 10:35 cp 01/12 09:35 Order name: PT-INR; Complete Time: 10:35 cp 01/12 11:04 Interpretation: Abnormal: PT 13.2. cp 01/12 09:35 Order name: Troponin (emerg Dept Use Only); Complete Time: 10:35 cp 01/12 10:36 Interpretation: TROPED < 0.02; Reviewed. cp 01/12 09:35 Order name: Lactate; Complete Time: 10:35 cp 01/12 09:35 Order name: D-Dimer; Complete Time: 10:35 cp 01/12 10:37 Interpretation: Within normal limits: D-DIMER 323. cp 01/12 09:35 Order name: Fibrinogen; Complete Time: 10:35 cp 01/12 10:36 Interpretation: Abnormal: FIB 480. cp 01/12 09:35 Order name: Blood Culture Adult (2) cp 01/12 09:35 Order name: Procalcitonin; Complete Time: 10:49 cp 01/12 10:49 Interpretation: Reviewed. cp 01/12 09:36 Order name: Basic Metabolic Panel; Complete Time: 10:35 EDMS 01/12 10:36 Interpretation: Normal except: GLUC 176; GFR 73. 01/12 09:36 Order name: Liver (Hepatic) Function; Complete Time: 10:35 EDMS 01/12 10:36 Interpretation: Normal except: AST 79; ALT 144; TP 8.4; GLOB 4.6; A/G 0.8. 01/12 09:35 Order name: XRAY Chest (1 view); Complete Time: 10:38 01/12 10:38 Interpretation: Report review. 01/12 09:35 Order name: EKG; Complete Time: 09:36 01/12 09:35 Order name: Cardiac monitoring; Complete Time: 10:05 01/12 09:35 Order name: EKG - Nurse/Tech; Complete Time: 10:29 01/12 09:35 Order name: IV Saline Lock; Complete Time: 10:05 01/12 09:35 Order name: Labs collected and sent; Complete Time: 10:05 01/12 09:35 Order name: O2 Per Protocol; Complete Time: 10:05 01/12 09:35 Order name: O2 Sat Monitoring; Complete Time: 09:53 cp EC:30 Rate is 79 beats/min. Rhythm is regular. MT interval is normal. QRS interval is normal. cp QT interval is normal. T waves are Flattened in lead aVL. Interpreted by me. Reviewed by me. Administered Medications: 10:04 Drug: Zofran (Ondansetron) 4 mg Route: IVP; Site: right antecubital; sv 10:30 Follow up: Response: No adverse reaction sv 10:06 Drug: Pepcid 20 mg Route: IVP; Site: right antecubital; sv 10:30 Follow up: Response: No adverse reaction sv 10:29 Drug: Tylenol 1000 mg Route: PO; sv 10:30 Follow up: Response: No adverse reaction sv 10:29 Drug: NS 0.9% 1000 ml Route: IV; Rate: 1000 ml/hr; Site: right antecubital; sv 11:30 Follow up: Response: No adverse reaction; IV Status: Completed infusion; IV Intake: sv 1000ml 12:09 Drug: Decadron - Dexamethasone 6 mg Route: IVP; Site: right antecubital; sv 12:09 Drug: Tussionex Pennkinetic ER 5 ml Route: PO; sv Disposition: 16:22 Co-signature as Attending Physician, Howard Akins MD I agree with the assessment and [facility] plan of care. Disposition: 01/13/20 11:06 Discharged to Home. Impression: Acute bronchitis, unspecified, SARS-associated coronavirus as the cause of diseases classified elsewhere. - Condition is Stable. - Discharge Instructions: Acute Bronchitis, Adult, COVID-19. - Prescriptions for Zithromax Z- Ty 250 mg Oral Tablet - take 1 tablet by ORAL route as directed for 5 days Day 1 - take two (2) tablets one time. Day 2, 3, 4 , 5 take one (1) tablet once daily.; 6 tablet. Albuterol Sulfate 90 mcg/actuation - inhale 1-2 puff by INHALATION route every 4-6 hours; 1 Inhaler. Guaifenesin AC 10- 100 mg/5 mL Oral Liquid - take 10 milliliters by ORAL route every 4 hours As needed; 200 milliliter. Dexamethasone 0.5 mg Oral Tablet - take 4 tablet by ORAL route 3 times per day for 7 days; 84 tablet. Zofran 4 mg Oral Tablet - take 1 tablet by ORAL route every 12 hours As needed; 20 tablet. - Medication Reconciliation Form, Thank You Letter, Antibiotic Education, Prescription Opioid Use form. - Follow up: Private Physician; When: 1 - 2 days; Reason: Recheck today's complaints. - Problem is new. - Symptoms have improved. Signatures: Dispatcher [employer] Rena Newell RN RN sv Anderson, Corey, MD MD cha Smirch, Shelby, RN RN ss Page, Corey, PA PA cp Corrections: (The following items were deleted from the chart) 11:12 11:06 01/13/2020 11:06 Discharged to Home. Impression: Acute bronchitis, unspecified. cp Condition is Stable. Prescriptions for Zithromax Z-Ty 250 mg Oral Tablet - take 1 tablet by ORAL route as directed for 5 days Day 1 - take two (2) tablets one time. Day 2, 3, 4 , 5 take one (1) tablet once daily.; 6 tablet. and Forms are Medication Reconciliation Form, Thank You Letter, Antibiotic Education, Prescription Opioid Use. Follow up: Private Physician; When: 1 - 2 days; Reason: Recheck today's complaints. Problem is new. Symptoms have improved. cp 12:13 11:12 01/13/2020 11:06 Discharged to Home. Impression: Acute bronchitis, unspecified; sv SARS-associated coronavirus as the cause of diseases classified elsewhere. Condition is Stable. Discharge Instructions: Acute Bronchitis, Adult, COVID-19. Prescriptions for Zithromax Z-Ty 250 mg Oral Tablet - take 1 tablet by ORAL route as directed for 5 days Day 1 - take two (2) tablets one time. Day 2, 3, 4 , 5 take one (1) tablet once daily.; 6 tablet, Albuterol Sulfate 90 mcg/actuation - inhale 1-2 puff by INHALATION route every 4-6 hours; 1 Inhaler, Guaifenesin AC 10-100 mg/5 mL Oral Liquid - take 10 milliliters by ORAL route every 4 hours As needed; 200 milliliter, Dexamethasone 0.5 mg Oral Tablet - take 4 tablet by ORAL route 3 times per day for 7 days; 84 tablet. and Forms are Medication Reconciliation Form, Thank You Letter, Antibiotic Education, Prescription Opioid Use. Follow up: Private Physician; When: 1 - 2 days; Reason: Recheck today's complaints. Problem is new. Symptoms have improved. 01/13 11:45 Antibiotic administration: The patient is discharged and will get outpatient antibiotics, Zithromax, 01/13 11:45 Data reviewed: vital signs, nurses notes, lab test result(s), EKG, cp radiologic studies, plain films, 01/13 01:01/12 11:45 Test interpretation: by ED physician or midlevel provider: ECG, [facility] 01/13 01:01/12 11:45 Counseling: I had a detailed discussion with the patient and/or guardian regarding: the historical points, exam findings, and any diagnostic results supporting the discharge/admit diagnosis, lab results, radiology results, the need for outpatient follow up, a family practitioner, to return to the emergency department if symptoms worsen or persist or if there are any questions or concerns that arise at home, 01/13 11:45 Response to treatment: the patient's symptoms have markedly improved after treatment, VSS. Patient appears non-toxic and no signs of respiratory distress noted. Nausea improved and no vomiting observed, and as a result, I will discharge patient,
[2020-01-13] MEDS ORDERED: HYDROCODONE/CHLORPHEN 5 ML/OSYR ONE (11:54)
[2020-01-13] MEDS ORDERED: dexAMETHasone 10 MG/ML VIAL ONE (11:54)
[2020-01-13 12:28] VITALS: TEMP 99.1
[2020-01-13 12:32] VITALS: BP 125/76; O2SAT 99
== END 2020-01-13 12:13 | disposition home or self-care (01) ==
LOC: ER 08:58
DX: U07.1 COVID-19 (principal); J20.8 Acute bronchitis due to other specified organisms; Z91.09 Other allergy status, other than to drugs and biological substances
CPT/HCPCS: 96361; 93005; 87040 ×2; 85025; 80048; 36415; 85384; 83735; 85610; 85379; 80076; 83605; 84484; 84145; 83880; 71045; 96375; 96374; 99285; J1100; J7030; J2405

== ENCOUNTER 2020-01-15 07:50 | Inpatient (IN) | payer OTHER ==
--- OUTSIDE RECORDS SUMMARY | 2020-01-15 08:08 | XMS REPORT | Continuity of Care Document ---
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 No; Reg Smoking Cessation Counseling No Social History TypeResponse 08/05/2015 [facility] Substance Abuse Use: None. Alcohol Current, [...]
--- OUTSIDE RECORDS SUMMARY | 2020-01-15 08:11 | XMS REPORT | Continuity of Care Document ---
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 21:54:008.9[facility] BnwnhpuIUGTIFATZN7292-25-79 21:54:0016.5[facility] QlupschZHFXQBJZAC5811-98-86 21:54:0014.2[facility] PlqxjarBAGUCABUIW7903-05-01 21:54:0043.6[facility] [place] TVKDEVHBIO0116-13-51 21:54:26309Bcmfljyu JubwzqrSLJXKERQSU5633-28-16 21:54:00 5.25[facility] XfzhtzhREOHYKUPCU2971-74-87 21:54:008.1[facility]annHEMATOLOGY 2015-08-04 21:54:0083.0[facility] TkrctplPDPNPNUIQO8392-23-88 21:54:00 Test Item Value Reference Range Interpretation Comments MCH (test code = MCH) 27.0 pg 27.0-31.0 [facility] BytfkkzMRWBUGPZJT2758-75-40 21:54:000.29[facility]annHEMATOLOGY 2015-08-04 21:54:000.1[facility] GbgapeyLMMLNFITBI6467-73-67 21:54:002.5[facility] LsunkagQWUYKTCVST1123-81-61 21:54:002.3[facility] DtipxmfKJEUOBRFHW9461-51-31 21:54:000.7[facility] CdrldyoSITKHEOUUD8691-84-20 21:54:006.8[facility] [place] NJHWZEXOGX0974-32-19 21:54:004.8[facility] IcocbchQDBSDJBZRX5308-31-46 21:54:00 59.2[facility] RmeimwmQQZJDAVTZX1088-58-81 21:54:000.2[facility]annHEMATOLOGY 2015-08-04 21:54:000.6[facility] NqqrsptFEMURUBRHM6515-87-68 21:54:0031.0[facility] [place]
[2020-01-15] MEDS ORDERED: ONDANSETRON 4 MG/2 ML VIAL ONE (08:19)
[2020-01-15] MEDS ORDERED: NA CHLORIDE 0.9% 1,000 ML ONE (08:19)
[2020-01-15 08:39] LABS: Absolute Lymphocytes (CBC) 0.8 K/uL (0.7-4.9); Basophils % 0.3 % (0-1.3); Hematocrit 42.4 % (39.6-49.0); Lymphocytes % 6.7 % (15.3-44.8); MPV 8.5 fL (7.6-11.3); RBC Red Blood Cell Count 5.31 M/uL (4.33-5.43)
[2020-01-15 08:50] LABS: Albumin 3.6 g/dL (3.4-5.0); Bilirubin Total 0.5 mg/dL (0.2-1.0); Potassium 3.7 mmol/L (3.5-5.1); Protein, Total 8.3 g/dL (6.4-8.2)
--- NOTE | 2020-01-15 09:07 | RAD REPORT ---
EXAM DESCRIPTION: CT - Thorax Wo Con - 01/15/2020 8:49 am CLINICAL HISTORY: sob COMPARISON: none TECHNIQUE: Computed axial tomography of the chest was obtained. Contrast was not requested. All CT scans are performed using dose optimization technique as appropriate and may include automated exposure control or mA/KV adjustment according to patient size. FINDINGS: The evaluation of mediastinum, laine and vessels is limited secondary to lack of IV contras t administration. Mild to moderate scattered ground-glass opacities within the lungs No mediastinal or hilar lymphadenopathy is seen. A pleural effusion is not present. Small hiatal hernia IMPRESSION: Mild to moderate scattered ground-glass opacities within the lungs may indicate Covid pn eumonia
[2020-01-15 09:18] LABS: Blood Morphology Comment NOT SEEN (NOT SEEN); Platelet Estimate ADEQ
--- NOTE | 2020-01-15 09:25 | EDPHYS ---
Physician Documentation [facility] Name: Kalyan Banuelos Age: 54 yrs Sex: Male : 1965 Arrival Date: 01/15/2020 Time: 07:51 Bed 4 Private MD: ED Physician Israel Woodson HPI: 01/14 08:18 This 54 yrs old Male presents to ER via Unassigned with complaints of Vomiting, jmm Shortness Of Breath, CODID+. 08:18 The patient presents to the emergency department with nausea, vomiting. Onset: The jmm symptoms/episode began/occurred gradually, 2 day(s) ago. The symptoms are aggravated by nothing. The symptoms are alleviated by nothing. Associated signs and symptoms: Pertinent positives:. This is a 54 year old male with a history of dm, htn that presents to the ED with complaints of worsening shortness of breath, vomiting, beginning this past Monday. Patient was seen in the ED and discharged with abx, albuterol without relief. Patient states symptoms have worsened. . Historical: - Allergies: 08:32 Iodine; iw - Home Meds: 08:32 aspirin 81 mg Oral TbEC 1 tab once daily [Active]; atorvastatin 40 mg oral tab 1 tab iw once daily [Active]; sertraline 100 mg oral tab 1 tab once daily [Active]; pantoprazole 40 mg oral TbEC 1 tab once daily [Active]; trazodone 50 mg Oral tab nightly [Active]; metoprolol tartrate 50 mg Oral tab once daily [Active]; metformin 500 mg Oral tab 1 tab 2 times per day [Active]; cetirizine 10 mg oral tab 1 tab once daily [Active]; zolpidem 10 mg Oral tab 1 tab once daily [Active]; - PMHx: 08:32 Depression; Diabetes; Hyperlipidemia; GERD; Hypertension; iw - Immunization history:: Adult Immunizations unknown. - Social history:: Smoking status: Patient denies any tobacco usage or history of. ROS: 08:18 Constitutional: Positive for body aches, fatigue, fever. jmm 08:18 Respiratory: Positive for shortness of breath. 08:18 Abdomen/GI: Positive for nausea and vomiting. 08:18 All other systems are negative. Exam: 08:18 Head/Face: atraumatic. Eyes: EOMI, no conjunctival erythema appreciated ENT: Moist jmm Mucus Membranes Neck: Trachea midline, Supple Chest/axilla: Normal chest wall appearance and motion. Cardiovascular: Regular rate and rhythm. No edema appreciated 08:18 Abdomen/GI: Non distended, soft Back: Normal ROM Skin: General appearance color normal MS/ Extremity: Moves all extremities, no obvious deformities appreciated, no edema noted to the lower extremities Neuro: Awake and alert, normal gait Psych: Behavior is normal, Mood is normal, Patient is cooperative and pleasant 08:18 Constitutional: The patient appears alert, awake, uncomfortable. 08:18 Respiratory: moderate respiratory distress is noted, Respirations: labored breathing, that is mild. Vital Signs: 08:21 BP 143 / 80; Pulse 96; Resp 38; Temp 98.2; Pulse Ox 86% on R/A; Weight 139.25 kg; aa5 Height 6 ft. 0 in. (182.88 cm); Pain 3/10; 08:30 BP 149 / 82; Pulse 99; Resp 33 S; Pulse Ox 91% on 2 lpm NC; aa5 09:22 BP 131 / 62; Pulse 88; Resp 28 S; Pulse Ox 98% on 2 lpm NC; aa5 10:20 BP 126 / 74; Pulse 87; Resp 24 S; Temp 101.8(O); Pulse Ox 100% on R/A; aa5 11:42 BP 140 / 67; Pulse 83; Resp 26; Pulse Ox 98% on 2 lpm NC; bp 08:21 Body Mass Index 41.64 (139.25 kg, 182.88 cm) aa5 MDM: 08:11 Patient medically screened. [facility] 09:21 Data reviewed: vital signs, nurses notes. Counseling: I had a detailed discussion with [facility] the patient and/or guardian regarding: the historical points, exam findings, and any diagnostic results supporting the discharge/admit diagnosis, lab results, radiology results, the need for further work-up and treatment in the hospital. ED course: I discussed the patient with Dr. Pink whom accepted admission. . 01/14 08:07 Order name: CBC with Diff; Complete Time: 09:27 [facility] 01/14 08:07 Order name: CMP; Complete Time: 09:02 [facility] 01/14 08:07 Order name: Blood Culture Adult (2) [facility] 01/14 08:08 Order name: Procalcitonin; Complete Time: 09:02 [facility] 01/14 08:08 Order name: Lactate; Complete Time: 09:02 [facility] 01/14 09:18 Order name: Manual Differential; Complete Time: 09:27 [facility] 01/14 08:50 Order name: Thorax Wo Con; Complete Time: 09:14 [facility] 01/14 09:20 Order name: Flu; Complete Time: 10:13 [facility] 01/14 09:55 Order name: Type And Screen [facility] 01/14 12:08 Order name: Type and Screen Tube method [facility] 01/14 12:15 Order name: ABO/RH no charge [facility] 01/14 08:07 Order name: Saline Lock; Complete Time: 08:44 [facility] 01/14 10:12 Order name: CONS Physician Consult EDWA Administered Medications: 08:17 Drug: NS 0.9% 1000 ml Route: IV; Rate: 1 bolus; Site: right antecubital; aa5 09:20 Follow up: IV Status: Completed infusion; IV Intake: 1000ml aa5 08:17 Drug: Zofran (Ondansetron) 4 mg Route: IVP; Site: right antecubital; aa5 09:20 Follow up: Response: No adverse reaction; Nausea is decreased aa5 09:40 Drug: Decadron - Dexamethasone 6 mg Route: IVP; Site: right antecubital; aa5 09:45 Follow up: Response: No adverse reaction aa5 09:42 Drug: AZITHromycin 1 grams Route: PO; aa5 11:42 Follow up: Response: No adverse reaction bp 09:43 Drug: Rocephin - (cefTRIAXone) 1 grams {Note: given slow IVP per pharmacy at this time. aa5 .} Route: IVPB; Infused Over: 30 mins; Site: right antecubital; 09:48 Follow up: Response: No adverse reaction aa5 11:42 Follow up: IV Status: Completed infusion; IV Intake: 20ml bp 10:40 Drug: Tylenol 1000 mg Route: PO; aa5 11:42 Follow up: Response: No adverse reaction bp Disposition: 15:47 Co-signature as Attending Physician, Israel Woodson MD. rn Disposition: 01/15/20 09:25 Hospitalization ordered by Prasanth Pink for Observation. Preliminary diagnosis are Viral pneumonia, unspecified, Hypoxia. - Bed requested for Telemetry/MedSurg (observation). - Status is Observation. bp - Condition is Stable. - Problem is new. - Symptoms are unchanged. Signatures: Dispatcher [employer] EDWA Batool Minaya, RN Fei Do PA PA [facility] Selene Cherry, RN Israel Macias MD MD rn Calderon, Audri, RN DASH aa5 Vishal Solis RN RN bp Botello, Elizabeth eb Corrections: (The following items were deleted from the chart) 08:50 08:08 Chest For PE Angio+CT.RAD.BRZ ordered. [facility] EDWA 10:59 09:25 Hospitalization Ordered by [facility] DO for Observation. Preliminary aa5 diagnosis is Viral pneumonia, unspecified; Hypoxia. Bed requested for Telemetry/MedSurg (observation). Status is Observation. Condition is Stable. Problem is new. Symptoms are unchanged. [facility] 11:28 10:59 01/15/2020 09:25 Hospitalization Ordered by [facility] DO for Observation. kl Preliminary diagnosis is Viral pneumonia, unspecified; Hypoxia. Bed requested for [facility] ER HOLD. Status is Observation. Condition is Stable. Problem is new. Symptoms are unchanged. aa5 11:28 11:28 01/15/2020 09:25 Hospitalization Ordered by Prasanth Pres DO for Observation. eb Preliminary diagnosis is Viral pneumonia, unspecified; Hypoxia. Bed requested for Telemetry/MedSurg (Inpatient). Status is Observation. Condition is Stable. Problem is new. Symptoms are unchanged. kl 12:15 11:28 01/15/2020 09:25 Hospitalization Ordered by [facility] DO for Observation. bp Preliminary diagnosis is Viral pneumonia, unspecified; Hypoxia. Bed requested for Telemetry/MedSurg (observation). Status is Observation. Condition is Stable. Problem is new. Symptoms are unchanged. eb
--- NOTE | 2020-01-15 09:25 | ER ---
Nurse's Notes [facility] Name: Kalyan Banuelos Age: 54 yrs Sex: Male : 1965 Arrival Date: 01/15/2020 Time: 07:51 Bed 4 Private MD: Diagnosis: Viral pneumonia, unspecified;Hypoxia Presentation: 01/14 08:21 Chief complaint: Patient states: was swabbed for COVID on Monday at urgent care, got iw positive result on Monday, was seen in ER Monday for fever, chills, body aches, cough, SOB, was diagnosed with bronchitis and sent home on abx and steroids, not feeling better today, is also vomiting now and can't hold his medicine down. Coronavirus screen: Surgical mask placed on patient. Patient moved to private room, placed in contact and droplet isolation with eye protection until further assessment. Patient reports a cough. Patient reports shortness of breath or difficulty breathing. Patient reports a measured and/or subjective temperature greater than 100.4F. Patient denies travel on a cruise ship or to a country the [facility] currently lists as an affected area. Patient denies contact with known and/or suspected case of COVID-19. Ebola Screen: Patient negative for fever greater than or equal to 101.5 degrees Fahrenheit, and additional compatible Ebola Virus Disease symptoms Patient denies exposure to infectious person. Patient denies travel to an Ebola-affected area in the 21 days before illness onset. No symptoms or risks identified at this time. Initial Sepsis Screen: Does the patient meet any 2 criteria? No. Patient's initial sepsis screen is negative. Does the patient have a suspected source of infection? No. Patient's initial sepsis screen is negative. Risk Assessment: Do you want to hurt yourself or someone else? Patient reports no desire to harm self or others. 08:21 Method Of Arrival: Wheelchair iw 08:21 Acuity: FREDERICK 3 iw 08:27 Onset of symptoms was January 10, 2020. iw Historical: - Allergies: 08:32 Iodine; iw - Home Meds: 08:32 aspirin 81 mg Oral TbEC 1 tab once daily [Active]; atorvastatin 40 mg oral tab 1 tab iw once daily [Active]; sertraline 100 mg oral tab 1 tab once daily [Active]; pantoprazole 40 mg oral TbEC 1 tab once daily [Active]; trazodone 50 mg Oral tab nightly [Active]; metoprolol tartrate 50 mg Oral tab once daily [Active]; metformin 500 mg Oral tab 1 tab 2 times per day [Active]; cetirizine 10 mg oral tab 1 tab once daily [Active]; zolpidem 10 mg Oral tab 1 tab once daily [Active]; - PMHx: 08:32 Depression; Diabetes; Hyperlipidemia; GERD; Hypertension; iw - Immunization history:: Adult Immunizations unknown. - Social history:: Smoking status: Patient denies any tobacco usage or history of. Screenin:30 Abuse screen: Denies threats or abuse. Nutritional screening: No deficits noted. aa5 Tuberculosis screening: No symptoms or risk factors identified. Fall Risk None identified. Assessment: 08:15 General: Appears uncomfortable, Behavior is calm, cooperative. Pain: Denies pain. aa5 Neuro: Level of Consciousness is awake, alert, obeys commands, Oriented to person, place, time, situation. Cardiovascular: Heart tones S1 S2 present Rhythm is regular. Respiratory: Reports shortness of breath cough Airway is patent Respiratory effort is labored, Respiratory pattern is tachypnea Breath sounds are diminished bilaterally. GI: Abdomen is round Bowel sounds present X 4 quads. Abd is non tender X 4 quads Reports diarrhea, nausea, vomiting. : No signs and/or symptoms were reported regarding the genitourinary system. EENT: Nares are clear. Derm: Skin is moist, Skin is normal, Skin temperature is warm. Musculoskeletal: Range of motion: intact in all extremities. 08:40 Reassessment: Pt to CT via stretcher. . aa5 09:20 Reassessment: Pt resting in bed with eyes closed, easy to arouse to verbal stimuli, aa5 respirations are even and unlabored. Pt states "I still feel like it's hard to take a deep breath". Awaiting complete results, pt notified of wait time. . 09:45 Reassessment: Patient is alert, oriented x 3, equal unlabored respirations, skin aa5 warm/dry/pink. Patient states feeling better. Pt reports nausea has improved. Flu swab collected and sent to lab. . 09:49 Reassessment: Hospitalist at bedside speaking to patient about need for admission. . aa5 10:20 Reassessment: Pt c/o nasal congestion, sinus pressure, and headache at this time. PA aa5 notified and notified of increased temperature. . Neuro: Level of Consciousness is awake, alert, obeys commands, Oriented to person, place, time, situation. Respiratory: Airway is patent Respiratory effort is even, unlabored, Respiratory pattern is regular, symmetrical. Derm: Skin is moist, Skin is normal, Skin temperature is hot. 11:42 Reassessment: ADMIT COMPLETE. PT TRANSFER TO 420 WITH IFEANYI BOWLING WITH DP PRECAUTIONS. bp Vital Signs: 08:21 BP 143 / 80; Pulse 96; Resp 38; Temp 98.2; Pulse Ox 86% on R/A; Weight 139.25 kg; aa5 Height 6 ft. 0 in. (182.88 cm); Pain 3/10; 08:30 BP 149 / 82; Pulse 99; Resp 33 S; Pulse Ox 91% on 2 lpm NC; aa5 09:22 BP 131 / 62; Pulse 88; Resp 28 S; Pulse Ox 98% on 2 lpm NC; aa5 10:20 BP 126 / 74; Pulse 87; Resp 24 S; Temp 101.8(O); Pulse Ox 100% on R/A; aa5 11:42 BP 140 / 67; Pulse 83; Resp 26; Pulse Ox 98% on 2 lpm NC; bp 08:21 Body Mass Index 41.64 (139.25 kg, 182.88 cm) aa5 ED Course: 07:51 Patient arrived in ED. ag5 07:53 Shayy Graham, DASH is Primary Nurse. aa5 07:53 Fei Ramirez PA is PHCP. [facility] 07:53 Israel Woodson MD is Attending Physician. jmm 08:15 Arm band placed on. aa5 08:15 Patient has correct armband on for positive identification. Bed in low position. Call [facility] light in reach. Side rails up X2. cardiac monitor on. Pulse ox on. NIBP on. 08:15 Initial lab(s) drawn, by ED staff, sent to lab. Inserted saline lock: 20 gauge in right aa5 antecubital area, using aseptic technique. Blood collected. IV inserted by Selene Cherry RN. 08:15 First set of blood cultures drawn by ED staff. aa5 08:27 Triage completed. iw 08:30 Second set of blood cultures drawn by ok. aa5 09:23 Prasanth Pink DO is Hospitalizing Provider. jmm 10:49 No provider procedures requiring assistance completed. aa5 11:41 Patient admitted, IV remains in place. bp Administered Medications: 08:17 Drug: NS 0.9% 1000 ml Route: IV; Rate: 1 bolus; Site: right antecubital; aa5 09:20 Follow up: IV Status: Completed infusion; IV Intake: 1000ml aa5 08:17 Drug: Zofran (Ondansetron) 4 mg Route: IVP; Site: right antecubital; aa5 09:20 Follow up: Response: No adverse reaction; Nausea is decreased aa5 09:40 Drug: Decadron - Dexamethasone 6 mg Route: IVP; Site: right antecubital; aa5 09:45 Follow up: Response: No adverse reaction aa5 09:42 Drug: AZITHromycin 1 grams Route: PO; aa5 11:42 Follow up: Response: No adverse reaction bp 09:43 Drug: Rocephin - (cefTRIAXone) 1 grams {Note: given slow IVP per pharmacy at this time. aa5 .} Route: IVPB; Infused Over: 30 mins; Site: right antecubital; 09:48 Follow up: Response: No adverse reaction aa5 11:42 Follow up: IV Status: Completed infusion; IV Intake: 20ml bp 10:40 Drug: Tylenol 1000 mg Route: PO; aa5 11:42 Follow up: Response: No adverse reaction bp Intake: 09:20 IV: 1000ml; Total: 1000ml. aa5 11:42 IV: 20ml; Total: 1020ml. bp Outcome: 09:25 Decision to Hospitalize by Provider. jmm 11:41 Admitted to Med/surg accompanied by tech, via wheelchair, room 420, with chart, Report bp called to IFEANYI BOWLING 11:41 Condition: stable 11:41 Instructed on the need for admit. 12:15 Patient left the ED. bp Signatures: Dispatcher [employer] EDMS Fei Ramirez PA PA jmm Williams, Irene RN Shayy John RN RN aa5 Vishal Solis RN RN Julio Bruce ag5 Corrections: (The following items were deleted from the chart) 08:45 08:25 Inserted saline lock: 20 gauge in right antecubital area, using aseptic aa5 technique. Blood collected. iw 08:45 08:25 Initial lab(s) drawn, by me, sent to lab. iw aa5 08:46 08:28 Arm band placed on iw aa5 08:50 08:49 In radiology for Chest For PE Angio+CT.JARROD. EDMS EDMS 09:23 08:21 BP 143 / 80; Pulse 96bpm; Resp 18bpm; Pulse Ox 86% RA; Temp 98.2F; 139.25 kg; aa5 Height 6 ft. 0 in.; BMI: 41.6; Pain 3/10; iw 09:24 08:21 BP 143 / 80; Pulse 96bpm; Resp 38bpm; Pulse Ox 86% RA; Temp 98.2F; 139.25 kg; aa5 Height 6 ft. 0 in.; BMI: 41.6; Pain 3/10; aa5 12:34 10:20 Derm: Skin is moist, Skin is normal, Skin temperature is warm aa5 aa5
[2020-01-15] MEDS ORDERED: dexAMETHasone 4 MG/ML VIAL ONE (09:43)
[2020-01-15] MEDS ORDERED: CEFTRIAXONE/SWI 1gm 1 GM/10 ML SYR ONE (09:43)
[2020-01-15] MEDS ORDERED: AZITHROMYCIN 250 MG TAB ONE (09:43)
--- NOTE | 2020-01-15 10:26 | P.HP ---
Certification for Inpatient With expected LOS: >2 Midnights Patient will require the following post-hospital care: None Practitioner: I am a practitioner with admitting privileges, knowledge of patient current condition, hospital course, and medical plan of care. Services: Services provided to patient in accordance with Admission requirements found in Title 42 Section 412.3 of the Code of Federal Regulations <Lul Johnston - Last Filed: 01/15/20 10:36> Patient History Date of Service: 01/15/20 Primary Care Provider: [facility] Reason for admission: Acute respiratory failure secondary to Covid pneumonia, N/V History of Present Illness: 54-year-old obese male with past muscle history of Covid 19 positive, essential hypertension, type 2 diabetes mellitus, hyperlipidemia and GERD presents to the emergency room complaining of worsening nausea vomiting and shortness of breath. Patient states that for the past 2 days he has been having increasing shortness of breath. Patient states that his fiancee tested positive for Covid pneumonia and that he was told he was positive as well on MondayJanuary 10. Patient states he feels like he can't take a deep breath. States that he has had significant nausea with several episodes of vomiting. In emergency room patient blood work is fairly unremarkable. He is stable and in no distress. He is on 2 L nasal cannula and 98% O2 saturations. On arrival to ED patient's oxygen saturations were 86% and he was noted to be in moderate respiratory distress. Patient does not wear oxygen at home. CT of the chest shows ground-glass opacities consistent with Covid pneumonia. Patient is agreeable to convalesce some plasma. His height is 6 feet, weight 139.25 kilos, blood type pending. Patient was also swabbed for flu and is negative for flu a and flu B. His white cell count is slightly elevated at 11.1 and blood glucose is 180. Patient will be admitted to the hospital for further evaluation. Home medications list reviewed: No - Past Medical/Surgical History Diabetic: Yes -: Covid 19 PNA Positive -: Essential hypertension -: GERD -: Type 2 diabetes mellitus -: Hyperlipidemia -: Carpal tunnel -: Cholecystectomy Psychosocial/ Personal History: Lives at home with ericka - Social History Smoking Status: Never smoker Alcohol use: No CD- Drugs: No Caffeine use: No Place of Residence: Home <Lul Johnston - Last Filed: 01/15/20 10:36> Date of Service: 01/15/20 - Family History Family History: Reviewed- Non-Contributory <Prasanth Pink - Last Filed: 01/15/20 14:38> Allergies iodine Allergy (Verified 01/15/20 10:30) Itching/Hives/Rash Review of Systems General: Weakness, Malaise Eyes: Unremarkable ENT: Unremarkable Respiratory: Cough, Shortness of Breath, SOB with Excertion, As per HPI Cardiovascular: Unremarkable Gastrointestinal: Nausea, Vomiting Genitourinary: Unremarkable Musculoskeletal: Unremarkable Integumentary: Unremarkable Neurological: Unremarkable <Lul Johnston - Last Filed: 01/15/20 10:36> Physical Examination - Vital Signs Temperature: 98.2 F Blood Pressure: 131/62 Pulse: 88 Respirations: 28 Pulse Ox (%): 98 (2L NC ) - Physical Exam General: Alert, In no apparent distress, Oriented x3 HEENT: Atraumatic, Normocephalic, PERRLA Neck: Supple, Other (Trachea midline) Respiratory: Clear to auscultation bilaterally, Diminished (Bilaterally) Cardiovascular: No edema, Normal pulses, Regular rate/rhythm Capillary refill: <2 Seconds Gastrointestinal: Normal bowel sounds, Soft and benign, Non-distended Musculoskeletal: No clubbing, No swelling, No contractures Integumentary: No rashes, No breakdown, No significant lesion Neurological: Normal gait, Normal speech, Normal strength at 5/5 x4 extr, Normal tone - Studies Laboratory Data (last 24 hrs) 01/15/20 08:15: Sodium 136, Potassium 3.7, BUN 15, Creatinine 0.99, Glucose 180 H, Total Bilirubin 0.5, AST 41 H, ALT 90 H, Alkaline Phosphatase 93 01/15/20 08:15: WBC 11.1 H D, Hgb 14.0, Hct 42.4, Plt Count 218 Microbiology Data (last 24 hrs): 01/15/20 09:44 Nasopharnyx Influenza Type A Antigen Screen - Final 01/15/20 09:44 Nasopharnyx Influenza Type B Antigen Screen - Final <Lul Johnston - Last Filed: 01/15/20 10:36> - Studies Laboratory Data (last 24 hrs) 01/15/20 08:15: Sodium 136, Potassium 3.7, BUN 15, Creatinine 0.99, Glucose 180 H, Total Bilirubin 0.5, AST 41 H, ALT 90 H, Alkaline Phosphatase 93 01/15/20 08:15: WBC 11.1 H D, Hgb 14.0, Hct 42.4, Plt Count 218 Microbiology Data (last 24 hrs): 01/15/20 09:44 Nasopharnyx Influenza Type A Antigen Screen - Final 01/15/20 09:44 Nasopharnyx Influenza Type B Antigen Screen - Final <Prasanth Pink - Last Filed: 01/15/20 14:38> Assessment and Plan - Plan Impression: Acute respiratory failure secondary to positive COVID pneumonia: Essential hypertension: Hyperlipidemia: Type 2 diabetes mellitus: Gerd: Plan: Acute respiratory failure secondary to positive COVID pneumonia: Patient tested positive and was notified last Monday. CT of the chest shows ground-glass opacities consistent with Covid PNA. Will continue O2 support as needed. Currently patient is on 2 L nasal cannula with 98% oxygen saturations. Will start patient on dexamethasone 6 mg daily dose, IV ceftriaxone 1 g daily, IV azithromycin 500 mg daily, will consult pulmonology at will monitor daily labs. Patient is had several episodes of nausea with vomiting. Will continue to monitor fluid status. Will hold off on IV Lasix at this time I will consider diuretics based on breathing status. Essential hypertension: Blood pressure stable in the ED. Will resume home medications once verified. Hyperlipidemia: Will resume home medications. Type 2 diabetes mellitus: Patient takes metformin 500 mg b.i.d.. Will start Accu-Cheks a.c. HS. Will order sliding scale insulin and diabetic diet. Gerd: CT of abdomen pelvis shows hiatal hernia. Patient is aware of hiatal hernia. Will resume home medications. Discharge Plan: Home Plan to discharge in: 72 Hours - Advance Directives Does patient have a Living Will: No Does patient have a Durable POA for Healthcare: No - Code Status/Comfort Care Code Status Assessed: Yes Time Spent Managing Pts Care (In Minutes): 55 <Lul Johnston - Last Filed: 01/15/20 10:36> - Plan Case discussed at length with PA. Agree with evaluation, assessment and plan of care. Patient with acute respiratory failure with hypoxia secondary to positive COVID 19 bilateral pneumonia. Continue antibiotic therapy. Continue IV steroids. Will try to wean off oxygen. Will start DVT prophylaxis. Will monitor closely. Patient willing to get convalescent plasma. Will need to type and screen. Once this is in place will order. Will further address his other medical problems including hypertension, hyperlipidemia, diabetes mellitus type 2, and GERD with hiatal hernia. <Prasanth Pink - Last Filed: 01/15/20 14:38>
[2020-01-15] MEDS ORDERED: ACETAMINOPHEN 500 MG TAB PO PRN (10:31)
[2020-01-15] MEDS: INSULIN -REGULAR HUMAN 50 UNIT/0.5 ML ML SQ SCH ×3 (11:30→21:00)
[2020-01-15] MEDS: ONDANSETRON 4 MG/2 ML VIAL IV PRN (13:05)
[2020-01-15 13:36] VITALS: BMI 41.6
[2020-01-15] MEDS ORDERED: HYDRALAZINE HCL 20 MG/ML VIAL IV PRN (14:41)
[2020-01-15] MEDS: METFORMIN ER 500 MG TAB PO SCH (17:45)
[2020-01-15] MEDS: METOPROLOL XL 50 MG TAB PO SCH (22:45)
[2020-01-15] MEDS: TRAZODONE 50 MG TABLET PO SCH (22:45)
[2020-01-15] MEDS ORDERED: NA CHLORIDE 0.9% 250 ML ONE (23:27)
[2020-01-16 01:09] LABS: Protime INR 1.19
[2020-01-16] MEDS ORDERED: PANTOPRAZOLE 40MG TABLET PO SCH (06:30)
[2020-01-16 07:10] LABS: Absolute Lymphocytes (CBC) 1.1 K/uL (0.7-4.9); Basophils % 0.2 % (0-1.3); Hematocrit 38.9 % (39.6-49.0); Lymphocytes % 11.3 % (15.3-44.8); MPV 8.3 fL (7.6-11.3); RBC Red Blood Cell Count 4.87 M/uL (4.33-5.43)
[2020-01-16 07:18] LABS: Protime INR 1.18
[2020-01-16] MEDS: INSULIN -REGULAR HUMAN 50 UNIT/0.5 ML ML SQ SCH ×4 (07:30→21:00)
[2020-01-16 07:34] LABS: Magnesium 2.4 mg/dL (1.8-2.4); Potassium 3.5 mmol/L (3.5-5.1); Thyroid Stimulating Hormone 0.677 uIU/mL (0.360-3.740)
[2020-01-16] MEDS: SERTRALINE HCL 100 MG TAB PO SCH (07:56)
[2020-01-16] MEDS: CEFTRIAXONE/SWI 1gm 1 GM/10 ML SYR IV SCH (07:56)
[2020-01-16] MEDS: METFORMIN ER 500 MG TAB PO SCH ×2 (07:56→15:59)
[2020-01-16] MEDS: ENOXAPARIN 40 MG/0.4 ML SQ SCH (07:56)
[2020-01-16] MEDS: FOLIC ACID 1 MG TABLET PO SCH (07:57)
[2020-01-16] MEDS: ASPIRIN 81 MG CHEWABLE TABLET PO SCH (07:57)
[2020-01-16] MEDS: ATORVASTATIN 40 MG TAB PO SCH (07:57)
[2020-01-16] MEDS: METOPROLOL XL 50 MG TAB PO SCH ×2 (07:57→21:39)
[2020-01-16] MEDS: THIAMINE HCL 100 MG TABLET PO SCH (07:57)
[2020-01-16] MEDS: ZINC SULFATE 220 MG CAP PO SCH (07:57)
[2020-01-16] MEDS: dexAMETHasone 10 MG/ML VIAL IV SCH (07:57)
[2020-01-16] MEDS ORDERED: POTASSIUM CL SA 10 MEQ TAB PO ONE (08:04)
[2020-01-16] MEDS: ONDANSETRON 4 MG/2 ML VIAL IV PRN ×2 (08:49→15:57)
[2020-01-16] MEDS ORDERED: AZITHROMYCIN IV 500 MG in NA CHLORIDE 0.9% 250 ML IVPB SCH (09:00)
--- NOTE | 2020-01-16 16:31 | P.PN ---
Subjective Date of Service: 01/16/20 Primary Care Provider: [facility] Chief Complaint: Acute respiratory failure secondary to Covid pneumonia, N/V Subjective: Improving (Still with nausea this am. Patient received plasma last night) Physical Examination - Vital Signs Temperature: 98.9 F Blood Pressure: 122/56 Pulse: 74 Respirations: 20 Pulse Ox (%): 95 - Physical Exam General: Alert, In no apparent distress, Oriented x3, Cooperative HEENT: Atraumatic Neck: Supple Respiratory: Clear to auscultation bilaterally Cardiovascular: Normal pulses Neurological: Normal speech, Normal strength at 5/5 x4 extr, Normal tone, Abnormal affect (mild anxiety) - Studies Microbiology Data (last 24 hrs): 01/15/20 08:30 Blood - Blood Anaerobic Blood Culture - Final Medications List Reviewed: Yes Assessment & Plan Discharge Plan: Home Plan to discharge in: 24 Hours Physician Review Additional Text: Impression: Acute respiratory failure with hypoxia secondary to positive COVID pneumonia Essential hypertension Hyperlipidemia Type 2 diabetes mellitus Gerd with hiatal hernia and nausea Plan: Acute respiratory failure with hypoxia secondary to positive COVID pneumonia: Patient received convalescent plasma yesterday. Continue to wean off oxygen. Continue IV Decadron, ceftriaxone. Anticipate improvement over the next 24 hr. Encourage ambulation. Encourage incentive spirometer. Likely discharge tomorrow with home oxygen. I will turn the service over to the hospitalist team tomorrow. I will go over the care with him. Essential hypertension: Continue home medication. Hyperlipidemia: Continue home medication Type 2 diabetes mellitus: Continue home medication. Monitor Accu-Cheks. Sliding scale in place. Gerd with hiatal hernia and nausea: CT of abdomen pelvis shows hiatal hernia. Patient is aware of hiatal hernia. Patient with nausea. Will make sure patient is on proton pump inhibitor. Will advance diet as tolerated. Time Spent Managing Pts Care (In Minutes): 55
[2020-01-16] MEDS: PANTOPRAZOLE 40MG TABLET PO SCH (16:59)
[2020-01-16 17:06] LABS: Urine Appearance CLEAR; Urine Bilirubin NEGATIVE (NEG); Urine Blood 2+ (NEG); Urine Color YELLOW; Urine Glucose NEGATIVE (NEG); Urine Protein 1+ (NEG); Urine Specific Gravity >=1.030 (1.005-1.030); Urine Urobilinogen 0.2 mg/dL (0.2-1.0)
[2020-01-16 17:21] LABS: Urine Microscopic Reflex ORDER UMIC
[2020-01-16 17:33] LABS: Urine Bacteria <20 /HPF (NONE SEEN); Urine Culture Reflex Order NOT NEEDED; Urine Mucus 1+ /HPF (NONE SEEN)
[2020-01-16] MEDS: TRAZODONE 50 MG TABLET PO SCH (21:39)
[2020-01-17 06:04] LABS: Potassium 4.1 mmol/L (3.5-5.1)
[2020-01-17] MEDS: INSULIN -REGULAR HUMAN 50 UNIT/0.5 ML ML SQ SCH ×2 (07:30→11:30)
[2020-01-17] MEDS: dexAMETHasone 10 MG/ML VIAL IV SCH (08:17)
[2020-01-17] MEDS: PANTOPRAZOLE 40MG TABLET PO SCH (08:18)
[2020-01-17] MEDS: THIAMINE HCL 100 MG TABLET PO SCH (08:18)
[2020-01-17] MEDS: ATORVASTATIN 40 MG TAB PO SCH (08:18)
[2020-01-17] MEDS: ZINC SULFATE 220 MG CAP PO SCH (08:18)
[2020-01-17] MEDS: ASPIRIN 81 MG CHEWABLE TABLET PO SCH (08:18)
[2020-01-17] MEDS: METFORMIN ER 500 MG TAB PO SCH (08:18)
[2020-01-17] MEDS: FOLIC ACID 1 MG TABLET PO SCH (08:18)
[2020-01-17] MEDS: SERTRALINE HCL 100 MG TAB PO SCH (08:18)
[2020-01-17] MEDS: ONDANSETRON 4 MG/2 ML VIAL IV PRN (08:18)
[2020-01-17] MEDS: CEFTRIAXONE/SWI 1gm 1 GM/10 ML SYR IV SCH (08:19)
[2020-01-17] MEDS: ENOXAPARIN 40 MG/0.4 ML SQ SCH (08:19)
[2020-01-17] MEDS: METOPROLOL XL 50 MG TAB PO SCH (08:19)
[2020-01-17 08:21] VITALS: BP 130/64
--- NOTE | 2020-01-17 08:35 | P.CNS ---
Date of Consult: 01/24/20 Primary Care Provider: [facility] Chief Complaint: Pneumonia due to blue virus History of Present Illness: Patient is 54 years of age positive for blue virus multiple medical problems admitted with nausea vomiting shortness of breath been exposed to blue virus he is doing much better on a low-dose oxygen the is mild diarrhea Allergies iodine Allergy (Verified 01/15/20 10:30) Itching/Hives/Rash Home Medications: Aspirin Chewable [Aspirin Chewable*] 81 mg PO DAILY 01/15/20 Atorvastatin Calcium [Lipitor] 40 mg PO DAILY 01/15/20 Metformin ER [Glucophage ER*] 500 mg PO BID 01/15/20 Metoprolol Succinate [Toprol Xl*] 50 mg PO BID 01/15/20 Pantoprazole [Protonix Tab*] 40 mg PO DAILY 01/15/20 Sertraline [Zoloft*] 100 mg PO DAILY 01/15/20 Trazodone HCl 50 mg PO BEDTIME 01/15/20 - Past Medical/Surgical History Diabetic: Yes -: Covid 19 PNA Positive -: Essential hypertension -: GERD -: Type 2 diabetes mellitus -: Hyperlipidemia -: Carpal tunnel -: Cholecystectomy Psychosocial/ Personal History: Lives at home with farzanae - Social History Alcohol use: No CD- Drugs: No Caffeine use: No Place of Residence: Home Review of Systems General: Weakness Respiratory: Shortness of Breath Physical Examination Temp Pulse Resp BP Pulse Ox 97.8 F 67 16 130/64 96 01/17/20 04:00 01/17/20 08:19 01/17/20 04:00 01/17/20 08:19 01/17/20 04:00 - Problems (1) Pneumonia due to human coronavirus Current Visit: Yes Status: Acute Plan: Patient is 54 years of age admitted with mild pneumonia due to blue virus is doing much room air pulse ox plan to discharge on prednisone 10 mg twice a day for 10 days no antibiotics needed patient has no fever telephone visit with me in 2 weeks
[2020-01-17 09:19] VITALS: TEMP 97.3
--- NOTE | 2020-01-17 11:12 | P.DS ---
Admission Date: 01/15/20 Discharge Date: 01/17/20 Primary Care Provider: [facility] Disposition: ROUTINE DISCHARGE Discharge Condition: FAIR Reason for Admission: Pneumonia due to blue virus Brief History of Present Illness: 54-year-old obese male with past muscle history of Covid 19 positive, essential hypertension, type 2 diabetes mellitus, hyperlipidemia and GERD presents to the emergency room complaining of worsening nausea vomiting and shortness of breath. Patient states that for the past 2 days he has been having increasing shortness of breath. Patient states that his fiancee tested positive for Covid pneumonia and that he was told he was positive as well on MondayJanuary 10. Patient states he feels like he can't take a deep breath. States that he has had significant nausea with several episodes of vomiting. In emergency room patient blood work is fairly unremarkable. He is stable and in no distress. He is on 2 L nasal cannula and 98% O2 saturations. On arrival to ED patient's oxygen saturations were 86% and he was noted to be in moderate respiratory distress. Patient does not wear oxygen at home. CT of the chest shows ground-glass opacities consistent with Covid pneumonia. Patient is agreeable to convalesce some plasma. His height is 6 feet, weight 139.25 kilos, blood type pending. Patient was also swabbed for flu and is negative for flu a and flu B. His white cell count is slightly elevated at 11.1 and blood glucose is 180. Hospital Course: Acute respiratory failure secondary to positive COVID pneumonia: Essential hypertension: Hyperlipidemia: Type 2 diabetes mellitus: Gerd: Course Acute respiratory failure secondary to positive COVID pneumonia, Patient tested positive . CT of the chest shows ground-glass opacities consistent with Covid PNA. Started on O2 support and was titrated pulmonology was consulted patient was started on IV steroid and IV antibiotics . Essential hypertension: Blood pressure stable in the ED. Will resume home medications once verified. Hyperlipidemia: Will resume home medications. Type 2 diabetes mellitus: Gerd: CT of abdomen pelvis shows hiatal hernia. Patient is aware of hiatal hernia. In 1 to follow up as an outpatient Patient responded well to the treatment and is being discharged home today in a stable condition with advice to follow up with PCP in 1 week and also with pulmonology in 1-2 weeks Vital Signs/Physical Exam: Temp Pulse Resp BP Pulse Ox 97.3 F 67 24 H 130/64 90 L 07/17/20 08:00 01/17/20 08:19 01/17/20 08:00 01/17/20 08:19 01/17/20 08:00 General: Alert, In no apparent distress HEENT: Atraumatic, Normocephalic Neck: Supple Respiratory: Clear to auscultation bilaterally Cardiovascular: Regular rate/rhythm, Normal S1 S2 Capillary refill: <2 Seconds Gastrointestinal: Soft and benign, W/out hepatosplenomegaly Musculoskeletal: No clubbing, No swelling Integumentary: No rashes Neurological: Normal strength at 5/5 x4 extr Lymphatics: No axilla or inguinal lymphadenopathy Laboratory Data at Discharge: WBC 9.4 K/uL (4.3-10.9) D 01/16/20 06:52 Hgb 13.0 g/dL (13.6-17.9) L 01/16/20 06:52 Hct 38.9 % (39.6-49.0) L 01/16/20 06:52 Plt Count 256 K/uL (152-406) 01/16/20 06:52 PT 13.9 SECONDS (9.5-12.5) H 01/16/20 06:52 INR 1.18 01/16/20 06:52 APTT 30.1 SECONDS (24.3-36.9) 01/16/20 06:52 Sodium 141 mmol/L (136-145) 01/17/20 05:30 Potassium 4.1 mmol/L (3.5-5.1) 01/17/20 05:30 BUN 27 mg/dL (7-18) H 01/17/20 05:30 Creatinine 0.93 mg/dL (0.55-1.3) 01/17/20 05:30 Glucose 130 mg/dL (74-106) H 01/17/20 05:30 Magnesium 2.4 mg/dL (1.8-2.4) 01/16/20 06:52 Total Bilirubin 0.5 mg/dL (0.2-1.0) 01/15/20 08:15 AST 41 U/L (15-37) H 01/15/20 08:15 ALT 90 U/L (12-78) H 01/15/20 08:15 Alkaline Phosphatase 93 U/L (45-117) 01/15/20 08:15 Home Medications: Aspirin Chewable [Aspirin Chewable*] 81 mg PO DAILY 01/15/20 Atorvastatin Calcium [Lipitor] 40 mg PO DAILY 01/15/20 Metformin ER [Glucophage ER*] 500 mg PO BID 01/15/20 Metoprolol Succinate [Toprol Xl*] 50 mg PO BID 01/15/20 Pantoprazole [Protonix Tab*] 40 mg PO DAILY 01/15/20 Sertraline [Zoloft*] 100 mg PO DAILY 01/15/20 Trazodone HCl 50 mg PO BEDTIME 01/15/20 predniSONE [Deltasone*] 10 mg PO BID #20 tab 01/17/20 New Medications: predniSONE [Deltasone*] 10 mg PO BID #20 tab Diet: Regular
[2020-01-17 12:14] VITALS: O2SAT 94
== END 2020-01-17 13:03 | disposition home or self-care (01) | DRG 177 ==
LOC: ER 07:50 → ERHOLD 10:09 → 4TH 11:42
PROVIDERS: ADMIT Family Medicine; ATTEND Family Medicine
PROC: 8E0ZXY6 Isolation (ICD-10-PCS; principal; 2020-01-15)
PROC: 30233K1 Transfusion of Nonautologous Frozen Plasma into Peripheral Vein, Percutaneous Approach (ICD-10-PCS; 2020-01-16)
DX: U07.1 COVID-19 (principal); J12.89 Other viral pneumonia; J96.01 Acute respiratory failure with hypoxia; Z68.41 Body mass index [BMI] 40.0-44.9, adult; E66.9 Obesity, unspecified; I10 Essential (primary) hypertension; E78.5 Hyperlipidemia, unspecified; K21.9 Gastro-esophageal reflux disease without esophagitis; K44.9 Diaphragmatic hernia without obstruction or gangrene; E11.9 Type 2 diabetes mellitus without complications; Z90.49 Acquired absence of other specified parts of digestive tract; Z91.048 Other nonmedicinal substance allergy status; Z79.82 Long term (current) use of aspirin; Z79.84 Long term (current) use of oral hypoglycemic drugs; Z79.899 Other long term (current) drug therapy
CPT/HCPCS: 36415; 71250; 80048; 80053; 81003; 81015; 82947; 83036; 83605; 83735; 84145; 84443; 85025; 85610; 85730; 86850; 86900; 86901; 86927; 87040; 87804; 94760; 96361; 96365; 96366; 96375; 99285; J0696; J1100; J1650; J2405; J7030; J7050

== ENCOUNTER 2020-08-24 09:57 | Emergency (ER) | payer OTHER, SELFPAY ==
--- OUTSIDE RECORDS SUMMARY | 2020-08-24 10:03 | XMS REPORT | Continuity of Care Document ---
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 treatment: None; Ready to change: No; Concerns about tobacco use in household: No; Exposure to Tobacco Smoke None; Cigarette Smoking Last 365 Days No; Reg Smoking Cessation Counseling No Social History TypeResponse 08/05/2015 [facility] Substance Abuse Use: None. Alcohol [...]
--- OUTSIDE RECORDS SUMMARY | 2020-08-24 10:05 | XMS REPORT | Continuity of Care Document ---
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 PM)[facility] [id number] 05:02:00Negative (08/04/15 11:02 PM)[facility] [id number] 05:02:00Negative (08/04/15 11:02 PM)[facility] [id number] 05:02:00Negative *NA*(08/04/15 11:02 PM)[facility] [id number] 05:02:00Negative (08/04/15 11:02 PM)[facility] [id number] 05:02:00Negative (08/04/15 11:02 PM)[facility] [id number] 05:02:00 Test Item Value Reference Range Interpretation Comments UA Spec Grav (test code = UA Spec 1.025 1 Grav) [facility] [id number] 05:02:00 Test Item Value Reference Range Interpretation Comments UA pH (test code = UA pH) 6.0 1 5.0-8.0 [facility] [id number] 05:02:00Clear (08/04/15 11:02 PM) [facility] [id number] 05:02:00Yellow *NA*(08/04/15 11:02 PM) [facility] [id number] 21:54:000.7[facility]annCARDIAC [id number] 21:54:00<0.02[facility]CARD[facility]AC [id number] 21:54:0085[facility]AC [id number] 21:54:000.8[facility] CHEM [id number] 21:54:001.0[facility]annCHEM [id number] 21:54:003.7 [facility]annCHEM [id number] 21:54:007.3[facility]annCHEM PANEL 2015-08-04 21:54:0094[facility]annCHEM [id number] 21:54:0081[facility]annCHEM [id number] 21:54:0010.8[facility]annCHEM [id number] 21:54:000.3[facility]annCHEM CYQKG8511-46-26 21:54:0020[facility]annCHEM KZKVI5790-82-25 21:54:0045[facility]annCHEM [id number] 21:54:003.6 [facility]annCHE[facility] [id number] 21:54:008.6[facility]annCHEM PANEL 2015-08-04 21:54:0012[facility] HermannCHEM [id number] 21:54:001.06[facility]annCHEM OJPGK5830-86-28 21:54:13972Hxdlorsi HermannCHEM RGSVE1757-95-45 21:54:003.8[facility] HermannCHEM KSQPV1087-93-87 21:54:06936Bbxcbruu HermannCHEM RCUJU2644-03-47 21:54:0026[facility]annCHEM [id number] 21:54:0097 [facility]annCHEM [id number] 21:54:0013[facility]annHEMATOLOGY 2015-08-04 21:54:0032.5[facility] RhwrlynJMGEPLPXDD5327-80-93 21:54:008.9[facility] KrjbwblQKHDMXDMSP1408-33-31 21:54:0016.5[facility] NatfeupCXXFWLCTXV5972-96-66 21:54:0014.2[facility] RypfwjkCJJWRAPDHT9554-06-12 21:54:0043.6[facility] NXWJGGYRQB9413-37-13 21:54:51255Ihbthkny RagreqiEJCGQFEBDF9438-72-12 21:54:00 5.25[facility] XeitrawSYMVWKCGEI6071-93-16 21:54:008.1[facility]annHEMATOLOGY 2015-08-04 21:54:0083.0[facility] IlowzueKCJVHIDVFW0173-05-30 21:54:00 Test Item Value Reference Range Interpretation Comments MCH (test code = MCH) 27.0 pg 27.0-31.0 [facility] IvpwabuIYLWKMNKYQ2045-23-96 21:54:000.29[facility]annHEMATOLOGY 2015-08-04 21:54:000.1[facility] OcxiwhfGBYSVBKAVV3059-73-28 21:54:002.5[facility] DugnybuJJKWCTOOQA4626-00-36 21:54:002.3[facility] QrwvumrBUICTIJKCJ9894-73-30 21:54:000.7[facility] TspfhplSBHARIQMHB9020-35-55 21:54:006.8[facility] WQDEJDSPGJ8813-52-40 21:54:004.8[facility] HfcqbygQKRBFUGXMK4711-76-77 21:54:00 59.2[facility] ExvyrpwINZTUVHUSC9629-96-68 21:54:000.2[facility]annHEMATOLOGY 2015-08-04 21:54:000.6[facility] EepwwhzXFXQOJCQCR7401-26-31 21:54:0031.0[facility]
--- NOTE | 2020-08-24 12:05 | RAD REPORT ---
EXAM DESCRIPTION: RAD - Chest Single View - 08/24/2020 11:55 am CLINICAL HISTORY: Cough;Chest pain Chest pain. COMPARISON: Chest Pa And Lat (2 Views) dated 02/04/2020; Chest Single View dated 01/13/2020 FINDINGS: Portable technique limits examination quality. The lungs are grossly clear. The heart is normal in size. No displaced fractures.Cervical spine hardw are plate. IMPRESSION: No acute intrathoracic process suspected.
[2020-08-24 13:34] LABS: Absolute Lymphocytes (CBC) 1.8 K/uL (0.7-4.9); Basophils % 1.4 % (0-1.3); Hematocrit 40.4 % (39.6-49.0); Lymphocytes % 22.8 % (15.3-44.8); MPV 8.4 fL (7.6-11.3); RBC Red Blood Cell Count 5.15 M/uL (4.33-5.43)
[2020-08-24 13:49] LABS: Protime INR 0.9
[2020-08-24 13:50] LABS: ALT/SGPT 74 U/L (12-78); AST/SGOT 43 U/L (15-37); Albumin 3.5 g/dL (3.4-5.0); Alkaline Phosphatase 83 U/L (45-117); BUN Blood Urea Nitrogen 14 mg/dL (7-18); Bicarbonate 24 mmol/L (21-32); Bilirubin Direct < 0.1 mg/dL (0-0.2); Bilirubin Total 0.3 mg/dL (0.2-1.0); Glucose Level 267 mg/dL (74-106); Magnesium 1.9 mg/dL (1.8-2.4); NT PRO-BNP 29 pg/mL (<125); Potassium 3.9 mmol/L (3.5-5.1); Protein, Total 7.3 g/dL (6.4-8.2); Sodium Level 138 mmol/L (136-145); Troponin (Emerg Dept Use Only) < 0.02 ng/mL (0.0-0.045)
[2020-08-24] MEDS ORDERED: HYDROCODONE/CHLORPHEN 5 ML/OSYR ONE (14:05)
[2020-08-24] MEDS ORDERED: ASPIRIN 81 MG CHEWABLE TABLET ONE (14:06)
[2020-08-24 15:21] LABS: SARS-COV-2 RT PCR NEGATIVE (NEGATIVE)
[2020-08-24] MEDS ORDERED: NA CHLORIDE 0.9% 500 ML ONE (15:55)
[2020-08-24] MEDS ORDERED: KETOROLAC 30 MG/ML INJ ONE (15:56)
--- NOTE | 2020-08-24 16:56 | ER ---
Nurse's Notes [facility] Name: Kalyan Banuelos Age: 55 yrs Sex: Male : 1965 Arrival Date: 08/24/2020 Time: 10:01 Bed 14 Private MD: Diagnosis: Acute bronchitis, unspecified;Other chest pain Presentation: 08/24 10:14 Chief complaint: Patient states: day started having chest pains on right side when iw he takes a deep breath, yesterday he bent over and when he took a deep breath he had more pain in same spot, running fever last night and chills temp was 100.5 , had COVID in December and was sent home on O2. Coronavirus screen: Client presents with at least one sign or symptom that may indicate coronavirus-19. Standard/surgical mask placed on the client. Provider contacted for isolation considerations. Ebola Screen: Patient negative for fever greater than or equal to 101.5 degrees Fahrenheit, and additional compatible Ebola Virus Disease symptoms Patient denies exposure to infectious person. Patient denies travel to an Ebola-affected area in the 21 days before illness onset. No symptoms or risks identified at this time. Initial Sepsis Screen: Does the patient meet any 2 criteria? No. Patient's initial sepsis screen is negative. Does the patient have a suspected source of infection? No. Patient's initial sepsis screen is negative. Risk Assessment: Do you want to hurt yourself or someone else? Patient reports no desire to harm self or others. Onset of symptoms was August 20, 2020. 10:14 Method Of Arrival: Ambulatory iw 10:14 Acuity: FREDERICK 3 iw Historical: - Allergies: 10:20 Iodine; iw - Home Meds: 10:20 aspirin 81 mg Oral TbEC 1 tab once daily [Active]; atorvastatin 40 mg Oral tab 1 tab iw once daily [Active]; cetirizine 10 mg Oral tab 1 tab once daily [Active]; metformin 500 mg Oral tab 1 tab 2 times per day [Active]; metoprolol tartrate 50 mg Oral tab once daily [Active]; pantoprazole 40 mg Oral TbEC 1 tab once daily [Active]; sertraline 100 mg Oral tab 1 tab once daily [Active]; trazodone 50 mg Oral tab nightly [Active]; zolpidem 10 mg Oral tab 1 tab once daily [Active]; - PMHx: 10:20 Depression; Diabetes; GERD; Hyperlipidemia; Hypertension; iw - Immunization history:: Adult Immunizations not up to date. - Social history:: Smoking status: Patient denies any tobacco usage or history of. Screenin:58 Abuse screen: Denies threats or abuse. Denies injuries from another. Nutritional dm14 screening: No deficits noted. Tuberculosis screening: No symptoms or risk factors identified. Fall Risk None identified. Assessment: 14:58 General: Appears distressed, obese, Behavior is cooperative, anxious, Reports feeling dm14 ill for 2-3 days, Denies. Pain: Complains of pain in anterior aspect of right upper chest and anterior aspect of left upper chest Pain radiates to anterior aspect of left upper chest Pain currently is 4 out of 10 on a pain scale. Quality of pain is described as sharp, Pain began 2-3 days ago. Neuro: No deficits noted. Cardiovascular: Reports chest pain, shortness of breath, Denies nausea, syncope, vomiting, Chest pain As previously described. Respiratory: No deficits noted. Reports shortness of breath at rest Pt very anxious and got tearful when discussing stresses related to just starting a new job and now being sick. States his rent is due and he has $28 dollars. Did not appear SOB when relaying this information. 15:20 Reassessment: States Chest feels heavy more than painful. V/S stable. PA aware. dm14 17:30 Reassessment: States pain now a 1/10. And feels much better. dm14 Vital Signs: 10:14 BP 156 / 81; Pulse 83; Resp 16; Temp 97.6; Pulse Ox 100% on R/A; Weight 138.35 kg; iw Height 6 ft. 0 in. (182.88 cm); 14:02 BP 133 / 83; Pulse 80; Resp 16; Temp 98.5(O); Pulse Ox 100% on R/A; mh5 15:20 BP 131 / 84; Pulse 79; Resp 18; Pulse Ox 98% ; dm14 16:16 BP 140 / 75; Pulse 77; Resp 17; Temp 98.2(O); Pulse Ox 97% on R/A; mh5 17:00 BP 122 / 91; Pulse 74; Resp 18; Pulse Ox 99% ; dm14 18:00 BP 116 / 68; Pulse 82; Resp 18; Pulse Ox 98% ; dm14 10:14 Body Mass Index 41.37 (138.35 kg, 182.88 cm) iw ED Course: 10:01 Patient arrived in ED. mr 10:19 Triage completed. iw 10:20 Arm band placed on. iw 11:54 X-ray completed. Patient tolerated procedure well. md1 11:55 CXR XRAY In Process Unspecified. EDMS 12:30 Howard Glez PA is PHCP. cp 12:30 Israel Woodson MD is Attending Physician. cp 12:47 Melissa Perez RN is Primary Nurse. dm14 14:02 Patient has correct armband on for positive identification. Placed in gown. Bed in low mh5 position. Call light in reach. Side rails up X 1. cigar packer and shader on. Pulse ox on. NIBP on. 14:06 Initial lab(s) drawn, by ED staff, sent to lab. Inserted saline lock: 20 gauge in right mh5 forearm, using aseptic technique. Blood collected. 14:58 No provider procedures requiring assistance completed. Inserted saline lock:. Patient dm14 maintains SpO2 saturation greater than 95% on room air. 16:15 Repeat lab(s) drawn. by vt, sent to lab. EKG done, by ED staff, reviewed by Howard MOE. 16:15 Troponin I Sent. [facility] 16:34 Troponin I Sent. [facility] 16:34 Troponin I Sent. [facility] 17:00 Inserted saline lock:. dm14 18:00 IV discontinued, intact, bleeding controlled, No redness/swelling at site. Pressure dm14 dressing applied. Administered Medications: 13:50 Drug: Tussionex Pennkinetic ER 5 ml Route: PO; dm14 17:38 Follow up: Response: No adverse reaction dm14 13:51 Drug: Aspirin Chewable Tablet 324 mg Route: PO; dm14 17:37 Follow up: Response: No adverse reaction dm14 16:00 Drug: TORadol - Ketorolac 15 mg Route: IVP; Site: right wrist; dm14 18:16 Follow up: Response: No adverse reaction; Pain is decreased dm14 16:00 Drug: NS 0.9% 500 ml Route: IV; Rate: bolus; Site: right wrist; dm14 18:16 Follow up: IV Status: Completed infusion dm14 Outcome: 16:54 Discharge ordered by MD. cp 18:26 Discharged to home ambulatory. dm14 18:26 Condition: stable 18:26 Discharge instructions given to patient, Instructed on discharge instructions, follow up and referral plans. medication usage, Demonstrated understanding of instructions, follow-up care, medications, Prescriptions given X 4. 18:36 Patient left the ED. dm14 Signatures: Dispatcher [employer] EDVT Areli Robles Irene, RN RN Howard Talbert PA PA cp Martinez, Maria [facility] Concetta Swenson md1 Melissa Perez RN RN dm14
--- NOTE | 2020-08-24 16:56 | EDPHYS ---
Physician Documentation [facility] Name: Kalyan Banuelos Age: 55 yrs Sex: Male : 1965 Arrival Date: 08/24/2020 Time: 10:01 Bed 14 Private MD: ED Physician Israel Woodson HPI: 08/24 12:55 This 55 yrs old Male presents to ER via Ambulatory with complaints of Chest cp Pain, Shortness Of Breath, Fever. 12:55 The patient or guardian reports chest pain that is located primarily in the anterior cp chest wall, mid and right side. 12:55 Onset: 2 day(s) ago. The pain radiates to Associated signs and symptoms: Pertinent cp positives: shortness of breath, cough since last week, Pertinent negatives: abdominal pain, diaphoresis, lower extremity pain, lower extremity swelling, syncope, vomiting. The chest pain is described as sharp. Modifying factors: the symptoms are aggravated by cough, deep breath. Severity of pain: in the emergency department the pain has improved mildly. 12:55 Patient reports cough and chest congestion. Diagnosed with COVID-19 last year in December. cp Historical: - Allergies: 10:20 Iodine; iw - Home Meds: 10:20 aspirin 81 mg Oral TbEC 1 tab once daily [Active]; atorvastatin 40 mg Oral tab 1 tab iw once daily [Active]; cetirizine 10 mg Oral tab 1 tab once daily [Active]; metformin 500 mg Oral tab 1 tab 2 times per day [Active]; metoprolol tartrate 50 mg Oral tab once daily [Active]; pantoprazole 40 mg Oral TbEC 1 tab once daily [Active]; sertraline 100 mg Oral tab 1 tab once daily [Active]; trazodone 50 mg Oral tab nightly [Active]; zolpidem 10 mg Oral tab 1 tab once daily [Active]; - PMHx: 10:20 Depression; Diabetes; GERD; Hyperlipidemia; Hypertension; iw - Immunization history:: Adult Immunizations not up to date. - Social history:: Smoking status: Patient denies any tobacco usage or history of. ROS: 13:00 Constitutional: Positive for body aches, Negative for fever, poor PO intake. cp 13:00 Eyes: Negative for injury, pain, redness, and discharge. cp 13:00 ENT: Positive for sore throat, Negative for drainage from ear(s), ear pain. 13:00 Cardiovascular: Positive for chest pain, Negative for edema, palpitations. 13:00 Respiratory: Positive for cough, "sounds productive", shortness of breath, Negative for wheezing. 13:00 Abdomen/GI: Negative for abdominal pain, nausea, vomiting, and diarrhea. 13:00 Back: Positive for radiated pain. 13:00 Skin: Negative for rash. 13:00 Neuro: Negative for altered mental status, headache, syncope, weakness. 13:00 All other systems are negative. Exam: 12:40 ECG was reviewed by the Attending Physician. cp 13:05 Constitutional: The patient appears in no acute distress, alert, awake, cp non-diaphoretic, non-toxic, well developed, well nourished, obese. 13:05 Head/Face: Normocephalic, atraumatic. cp 13:05 Eyes: Periorbital structures: appear normal, Conjunctiva: normal, no exudate, no injection, Sclera: no appreciated abnormality, Lids and lashes: appear normal, bilaterally. 13:05 ENT: External ear(s): are unremarkable, Nose: is normal, Mouth: Lips: moist, Oral mucosa: pink and intact, moist, Posterior pharynx: Airway: no evidence of obstruction, patent, Tonsils: are normal in appearance. 13:05 Neck: ROM/movement: is normal, is supple, without pain, no range of motions limitations, no meningismus. 13:05 Chest/axilla: Inspection: normal, Palpation: is normal, no crepitus, no tenderness. 13:05 Cardiovascular: Rate: normal, Rhythm: regular, Edema: is not appreciated, JVD: is not appreciated. 13:05 Respiratory: the patient does not display signs of respiratory distress, Respirations: normal, no use of accessory muscles, no retractions, labored breathing, is not present, Breath sounds: bronchial sounds, that are mild, are heard diffusely, stridor, is not appreciated, wheezing: is not appreciated. 13:05 Abdomen/GI: Inspection: abdomen appears normal, Palpation: abdomen is soft and non-tender, in all quadrants. 13:05 Skin: cellulitis, is not appreciated, no rash present. 16:27 ECG was reviewed by the Attending Physician. cp Vital Signs: 10:14 BP 156 / 81; Pulse 83; Resp 16; Temp 97.6; Pulse Ox 100% on R/A; Weight 138.35 kg; iw Height 6 ft. 0 in. (182.88 cm); 14:02 BP 133 / 83; Pulse 80; Resp 16; Temp 98.5(O); Pulse Ox 100% on R/A; mh5 15:20 BP 131 / 84; Pulse 79; Resp 18; Pulse Ox 98% ; dm14 16:16 BP 140 / 75; Pulse 77; Resp 17; Temp 98.2(O); Pulse Ox 97% on R/A; mh5 17:00 BP 122 / 91; Pulse 74; Resp 18; Pulse Ox 99% ; dm14 18:00 BP 116 / 68; Pulse 82; Resp 18; Pulse Ox 98% ; dm14 10:14 Body Mass Index 41.37 (138.35 kg, 182.88 cm) iw MDM: 12:46 Patient medically screened. cp 14:00 Differential diagnosis: abnormal EKG, acute myocardial infarction, costochondritis, cp pericarditis, pleurisy, pneumonia, pneumothorax, pulmonary embolus, stable angina, unstable angina. 16:52 The patient was given aspirin in the Emergency Department. cp 16:52 Data reviewed: vital signs, nurses notes, lab test result(s), EKG, radiologic studies, cp plain films, I have discussed the patient's presentation/case with the attending Emergency Department Physician; and as a result, I will discharge patient. Test interpretation: by ED physician or midlevel provider: ECG, plain radiologic studies. 16:53 Counseling: I had a detailed discussion with the patient and/or guardian regarding: the cp historical points, exam findings, and any diagnostic results supporting the discharge/admit diagnosis, lab results, radiology results, to return to the emergency department if symptoms worsen or persist or if there are any questions or concerns that arise at home. 16:53 Response to treatment: the patient's symptoms have markedly improved after treatment, cp and as a result, I will discharge patient. 08/24 13:00 Order name: Basic Metabolic Panel; Complete Time: 14:47 cp 08/24 14:47 Interpretation: Normal except: GLUC 267; GFR 85. cp 08/24 13:00 Order name: CBC with Diff; Complete Time: 14:47 cp 08/24 14:47 Interpretation: Normal except: HGB 13.2; MCV 78.5; MCH 25.7; RDW 15.9; BASO% 1.4. cp 08/24 13:00 Order name: LFT's; Complete Time: 14:47 cp 08/24 14:48 Interpretation: Normal except: AST 43; GLOB 3.8; A/G 0.9. cp 08/24 13:00 Order name: Magnesium; Complete Time: 14:47 cp 08/24 14:48 Interpretation: MG 1.9; Reviewed. cp 08/24 10:21 Order name: CXR XRAY; Complete Time: 12:46 iw 08/24 13:00 Order name: NT PRO-BNP; Complete Time: 14:47 cp 08/24 13:00 Order name: PT-INR; Complete Time: 14:47 cp 08/24 13:00 Order name: Troponin (emerg Dept Use Only); Complete Time: 14:47 cp 08/24 14:47 Interpretation: Within normal limits: TROPED < 0.02. cp 08/24 15:22 Order name: COVID-19/FLU A+B; Complete Time: 15:35 EDMS 08/24 16:02 Order name: Troponin I cp 08/24 16:03 Order name: Troponin I EDMS 08/24 13:00 Order name: EKG; Complete Time: 13:01 cp 08/24 13:00 Order name: Cardiac monitoring; Complete Time: 13:21 cp 08/24 13:00 Order name: EKG - Nurse/Tech; Complete Time: 13:22 cp 08/24 13:00 Order name: IV Saline Lock; Complete Time: 13:22 cp 08/24 13:00 Order name: Labs collected and sent; Complete Time: 13:22 cp 08/24 13:00 Order name: O2 Per Protocol; Complete Time: 13:22 cp 08/24 13:00 Order name: O2 Sat Monitoring; Complete Time: 13:22 cp 08/24 16:02 Order name: EKG; Complete Time: 16:03 cp 08/24 16:02 Order name: EKG - Nurse/Tech; Complete Time: 16:15 cp EC:40 Rate is 81 beats/min. Rhythm is regular. NJ interval is normal. QRS interval is normal. cp QT interval is normal. T waves are Inverted in lead aVR. Interpreted by me. Reviewed by me. 16:27 Rate is 75 beats/min. Rhythm is regular. NJ interval is normal. QRS interval is normal. cp QT interval is normal. T waves are Inverted in lead aVR. Interpreted by me. Reviewed by me. Administered Medications: 13:50 Drug: Tussionex Pennkinetic ER 5 ml Route: PO; dm14 17:38 Follow up: Response: No adverse reaction dm14 13:51 Drug: Aspirin Chewable Tablet 324 mg Route: PO; dm14 17:37 Follow up: Response: No adverse reaction dm14 16:00 Drug: TORadol - Ketorolac 15 mg Route: IVP; Site: right wrist; dm14 18:16 Follow up: Response: No adverse reaction; Pain is decreased dm14 16:00 Drug: NS 0.9% 500 ml Route: IV; Rate: bolus; Site: right wrist; dm14 18:16 Follow up: IV Status: Completed infusion dm14 Disposition: 18:48 Co-signature as Attending Physician, Israel Woodson MD. rn Disposition: 08/24/20 16:54 Discharged to Home. Impression: Acute bronchitis, unspecified, Other chest pain. - Condition is Stable. - Discharge Instructions: Acute Bronchitis, Adult, Nonspecific Chest Pain, Aspirin and Your Heart. - Prescriptions for Tessalon Perles 100 mg Oral Capsule - take 2 capsule by ORAL route every 8 hours As needed; 30 capsule. Prednisone 20 mg Oral Tablet - take 3 tablet by ORAL route once daily for 5 days; 15 tablet. Zithromax Z- Ty 250 mg Oral Tablet - take 1 tablet by ORAL route as directed for 5 days Day 1 - take two (2) tablets one time. Day 2, 3, 4 , 5 take one (1) tablet once daily.; 6 tablet. Albuterol Sulfate 90 mcg/actuation - inhale 1-2 puff by INHALATION route every 4-6 hours; 1 Inhaler. - Medication Reconciliation Form, Thank You Letter, Antibiotic Education, Prescription Opioid Use form. - Follow up: Private Physician; When: 2 - 3 days; Reason: Recheck today's complaints. - Problem is new. - Symptoms have improved. Signatures: Dispatcher [employer] EDMS Dilip, Selene, RN RN iw Woodson, Israel, MD MD rn Page, Howard, PA PA cp McInroy, Melissa, RN RN dm14 Corrections: (The following items were deleted from the chart) 14:29 13:00 CORONAVIRUS+MR.LAB.BRZ ordered. EDMS EDMS 14:30 13:00 Influenza Screen (A \\T\\ B)+BA.LAB.BRZ ordered. EDGA EDMS 18:36 16:54 08/24/2020 16:54 Discharged to Home. Impression: Acute bronchitis, unspecified; dm14 Other chest pain. Condition is Stable. Forms are Medication Reconciliation Form, Thank You Letter, Antibiotic Education, Prescription Opioid Use. Follow up: Private Physician; When: 2 - 3 days; Reason: Recheck today's complaints. Problem is new. Symptoms have improved. cp
[2020-08-24 18:48] VITALS: TEMP 98.2
[2020-08-24 18:51] VITALS: BP 116/68; O2SAT 98
--- NOTE | 2020-08-26 | EKG ---
Test Date: 2020-08-24 Test Time: 16:22:08 Refrigeration Mechanic Helper: CRISTINA MEASUREMENT RESULTS: Intervals: Rate: 75 NE: 180 QRSD: 84 QT: 404 QTc: 451 [place]: P: 53 NE: 180 QRS: -1 T: 41 INTERPRETIVE STATEMENTS: Normal sinus rhythm Normal ECG Compared to ECG 08/24/2020 12:34:14 No significant changes Electronically Signed On 08-25-20 23:58:32 TRADE MARK ATTORNEY by Vin Meredith
--- NOTE | 2020-08-26 00:02 | EKG ---
Test Date: 2020-08-24 Test Time: 12:34:14 Medical Education Coordinator: TANO MEASUREMENT RESULTS: Intervals: Rate: 81 AK: 176 QRSD: 88 QT: 384 QTc: 446 [place]: P: 34 AK: 176 QRS: -10 T: 36 INTERPRETIVE STATEMENTS: Normal sinus rhythm Normal ECG Compared to ECG 01/13/2020 10:23:36 No significant changes Electronically Signed On 08-25-20 23:58:44 GEOSPATIAL IMAGE ANALYST by Vin Meredith
== END 2020-08-24 18:36 | disposition home or self-care (01) ==
LOC: ER 09:57
DX: J20.9 Acute bronchitis, unspecified (principal); Z20.822 Contact with and (suspected) exposure to COVID-19; I10 Essential (primary) hypertension; E78.5 Hyperlipidemia, unspecified; E11.9 Type 2 diabetes mellitus without complications; F32.9 Major depressive disorder, single episode, unspecified; Z79.82 Long term (current) use of aspirin; Z91.048 Other nonmedicinal substance allergy status
CPT/HCPCS: 0240U; 36415; 71045; 80048; 80076; 83735; 83880; 84484; 85025; 85610; 93005; 96361; 96374; 99285; J7040

== ENCOUNTER 2020-12-14 12:39 | Emergency (ER) | payer OTHER, SELFPAY ==
[2020-12-14 13:56] LABS: Absolute Lymphocytes (CBC) 1.6 K/uL (0.7-4.9); Basophils % 0.8 % (0-1.3); Hematocrit 37.6 % (39.6-49.0); Lymphocytes % 20.1 % (15.3-44.8); MPV 8.1 fL (7.6-11.3); RBC Red Blood Cell Count 4.81 M/uL (4.33-5.43)
[2020-12-14 14:06] LABS: Protime INR 1.05
[2020-12-14 14:18] LABS: ALT/SGPT 54 U/L (12-78); AST/SGOT 37 U/L (15-37); Albumin 3.4 g/dL (3.4-5.0); Alkaline Phosphatase 85 U/L (45-117); BUN Blood Urea Nitrogen 11 mg/dL (7-18); Bicarbonate 27 mmol/L (21-32); Bilirubin Direct < 0.1 mg/dL (0-0.2); Bilirubin Total 0.2 mg/dL (0.2-1.0); Glucose Level 162 mg/dL (74-106); Lipase 55 U/L (73-393); Potassium 3.9 mmol/L (3.5-5.1); Protein, Total 7.6 g/dL (6.4-8.2); Sodium Level 140 mmol/L (136-145)
[2020-12-14 14:20] LABS: Magnesium 1.8 mg/dL (1.8-2.4); Troponin I < 0.02 ng/mL (0.0-0.045)
[2020-12-14] MEDS ORDERED: ACETAMINOPHEN 500 MG TAB ONE (16:30)
--- NOTE | 2020-12-14 17:16 | RAD REPORT ---
EXAM DESCRIPTION: CT - Abdomen Pelvis Wo Contrast - 12/14/2020 4:32 pm CLINICAL HISTORY: Abd pain;Abdominal distention COMPARISON: No comparisons TECHNIQUE: Axial [address] imaging of the abdomen and pelvis was performed without IV contrast. No IV contrast was given because of allergy, abnormal renal function, patient refusal or physician re quest. Oral contrast administered. All CT scans are performed using dose optimization technique as appropriate and may include automated exposure control or mA/KV adjustment according to patient size. FINDINGS: No suspicious findings in the lung bases. The liver, spleen and pancreas show no suspicious findings on non-contrast imaging. Cholecystectomy c lips are present. No biliary tree dilatation. No hydronephrosis or suspicious renal mass. A 3 mm nonobstructing calculus present in the upper pole of the right kidney. No significant adrenal finding. Isodense renal masses and pyelonephritis cannot be excluded in the absence of IV contrast. No abnormality in the tightly contracted urinary bladder. No prostate gland or seminal vesicle suspicious finding. Small hiatal hernia is present. No acute gastric wall finding. No small bowel dilatation or wall thic kening. Appendix is normal. Mild to moderate sigmoid diverticulosis present without diverticulitis. No free air, free fluid or inflammatory stranding. No hernia, mass or bulky lymphadenopathy. No suspicious bony findings. IMPRESSION: Sigmoid diverticulosis is present without diverticulitis, mass or other acute GI process identifiable. No acute or emergent findings identifiable. Full assessment is limited is the absence of IV contrast.
--- NOTE | 2020-12-14 17:48 | EDPHYS ---
Physician Documentation [facility] Name: Kalyan Banuelos Age: 55 yrs Sex: Male : 1965 Arrival Date: 12/14/2020 Time: 12:44 Bed 24 Private MD: Ari Saba ED Physician Howard Akins HPI: 12/14 13:30 This 55 yrs old Male presents to ER via Ambulatory with complaints of cp Abdominal Pain. 13:30 The patient presents with abdominal pain in the epigastric area. cp 13:30 Onset: The symptoms/episode began/occurred couple weeks ago. The symptoms do not cp radiate. Associated signs and symptoms: Pertinent positives: dark colored/black stools, Pertinent negatives: nausea and vomiting, blood in stools, constipation, diarrhea, fever, shortness of breath, testicular pain, vomiting. Severity of pain: in the emergency department the pain has improved moderately. Patient reports history of GERD and is prescribed daily ppi. Patient reports losing medication couple weeks ago and noticing worsening heartburn. Patient reports he has resumed prescribed ppi but is concerned after noticing dark colored/black stools, fatigue for past 1-2 weeks. Historical: - Allergies: 13:19 Iodine; ss - Home Meds: 13:19 aspirin 81 mg Oral TbEC 1 tab once daily [Active]; atorvastatin 40 mg Oral tab 1 tab ss once daily [Active]; cetirizine 10 mg Oral tab 1 tab once daily [Active]; metformin 500 mg Oral tab 1 tab 2 times per day [Active]; metoprolol tartrate 50 mg Oral tab once daily [Active]; pantoprazole 40 mg Oral TbEC 1 tab once daily [Active]; sertraline 100 mg Oral tab 1 tab once daily [Active]; trazodone 50 mg Oral tab nightly [Active]; zolpidem 10 mg Oral tab 1 tab once daily [Active]; - PMHx: 13:19 Depression; Diabetes; GERD; Hyperlipidemia; Hypertension; ss - Immunization history:: Adult Immunizations up to date. - Social history:: Smoking status: Patient denies any tobacco usage or history of. ROS: 13:35 Constitutional: Positive for fatigue, Negative for body aches, chills, fever, poor PO cp intake. 13:35 Eyes: Negative for injury, pain, redness, and discharge. cp 13:35 ENT: Negative for ear pain, sore throat, difficulty swallowing, difficulty handling secretions. 13:35 Cardiovascular: Negative for chest pain, palpitations. 13:35 Respiratory: Negative for cough, shortness of breath, wheezing. 13:35 Abdomen/GI: Positive for abdominal pain, black/tarry stool, Negative for vomiting, diarrhea, constipation. 13:35 Back: Negative for radiated pain. 13:35 : Negative for urinary symptoms. 13:35 Neuro: Negative for altered mental status, headache, syncope, weakness. 13:35 All other systems are negative. Exam: 13:40 Constitutional: The patient appears in no acute distress, alert, awake, cp non-diaphoretic, non-toxic, well developed, well nourished, obese. 13:40 Head/Face: Normocephalic, atraumatic. cp 13:40 Eyes: Periorbital structures: appear normal, Conjunctiva: normal, no exudate, no injection, Sclera: no appreciated abnormality, Lids and lashes: appear normal, bilaterally. 13:40 ENT: External ear(s): are unremarkable, Nose: is normal, Mouth: Lips: moist, Oral mucosa: moist, Posterior pharynx: Airway: no evidence of obstruction, patent. 13:40 Chest/axilla: Inspection: normal, Palpation: is normal, no crepitus, no tenderness. 13:40 Cardiovascular: Rate: normal, Rhythm: regular. 13:40 Respiratory: the patient does not display signs of respiratory distress, Respirations: cp normal, no use of accessory muscles, no retractions, labored breathing, is not present, Breath sounds: are clear throughout, no decreased breath sounds, no stridor, no wheezing. 13:40 Abdomen/GI: Inspection: abdomen appears normal, Bowel sounds: active, all quadrants, Palpation: soft, in all quadrants, mild abdominal tenderness, in the epigastric area, rebound tenderness, is not appreciated, involuntary guarding, is not appreciated. 13:40 Back: CVA tenderness, is absent. cp 13:40 Skin: no rash present. 13:40 Neuro: Orientation: to person, place \T\ time. Mentation: is normal, Motor: moves all fours, strength is normal. 14:00 ECG was reviewed by the Attending Physician. cp 14:10 : Rectal exam: Guaiac testing: results were negative for occult blood. cp Vital Signs: 13:15 BP 135 / 85; Pulse 93; Resp 21; Temp 98.5(TE); Pulse Ox 99% on R/A; Weight 137.44 kg; ss Height 5 ft. 11 in. (180.34 cm); Pain 3/10; 14:00 BP 123 / 74; Pulse 84; Resp 20; Pulse Ox 99% ; vg1 14:53 BP 131 / 74; Pulse 85; Resp 20; Pulse Ox 100% on R/A; vg1 15:58 BP 142 / 77; Pulse 85; Resp 20; Pulse Ox 98% ; vg1 17:23 BP 163 / 84; Pulse 86; Resp 18; Pulse Ox 99% ; vg1 13:15 Body Mass Index 42.26 (137.44 kg, 180.34 cm) ss MDM: 13:24 Patient medically screened. 17:47 Data reviewed: vital signs, nurses notes, lab test result(s), EKG, radiologic studies, cp CT scan. 17:47 Test interpretation: by ED physician or midlevel provider: ECG, plain radiologic cp studies. 12/14 13:24 Order name: Basic Metabolic Panel; Complete Time: 14:23 cp 12/14 17:36 Interpretation: Normal except: GLUC 162; GFR 80. cp 12/14 13:24 Order name: CBC with Diff; Complete Time: 14:23 cp 12/14 14:24 Interpretation: Normal except: HGB 12.0; HCT 37.6; MCV 78.1; MCH 25.0; RDW 15.3. cp 12/14 13:24 Order name: Hepatic Function; Complete Time: 14:23 cp 12/14 17:46 Interpretation: Normal except: GLOB 4.2; A/G 0.8. cp 12/14 13:24 Order name: Lipase; Complete Time: 14:23 cp 12/14 13:24 Order name: PT-INR; Complete Time: 14:23 cp 12/14 13:24 Order name: Ptt, Activated; Complete Time: 14:23 cp 12/14 13:24 Order name: IV Saline Lock; Complete Time: 13:57 cp 12/14 13:42 Order name: Troponin I; Complete Time: 14:24 cp 12/14 13:42 Order name: EKG; Complete Time: 13:42 cp 12/14 13:42 Order name: Magnesium; Complete Time: 14:24 12/14 16:14 Order name: Abdomen ; Complete Time: 17:36 EDCO 12/14 13:24 Order name: Labs collected and sent; Complete Time: 13:57 cp 12/14 13:42 Order name: EKG - Nurse/Tech; Complete Time: 13:57 cp EC:00 Rate is 84 beats/min. Rhythm is regular. AR interval is normal. QRS interval is normal. cp QT interval is normal. T waves are Inverted in lead aVR. Interpreted by me. Reviewed by me. Administered Medications: 16:20 Drug: Tylenol 1000 mg Route: PO; vg1 17:27 Follow up: Response: No adverse reaction; Pain is decreased vg1 17:34 Drug: GI Cocktail without - (Maalox Suspension 30 ml, Lidocaine Liquid 2 % 15 vg1 ml) Route: PO; 19:09 Follow up: Response: No adverse reaction; Pain is decreased iw Disposition: 12/15 07:23 Co-signature as Attending Physician, Howard Akins MD I agree with the assessment and kaylene plan of care. Disposition: 12/14/20 17:47 Discharged to Home. Impression: Epigastric pain. - Condition is Stable. - Discharge Instructions: Abdominal Pain, Adult, Gastroesophageal Reflux Disease, Adult. - Prescriptions for Carafate 1 gram Oral Tablet - take 1 tablet by ORAL route 4 times per day take on an empty stomach, beginning on waking and last dose at bedtime. dissolve tablet in small amount warm water prior to ingestion; 100 tablet. Zofran 4 mg Oral Tablet - take 1 tablet by ORAL route every 12 hours As needed; 20 tablet. - Medication Reconciliation Form, Thank You Letter, Antibiotic Education, Prescription Opioid Use form. - Follow up: Minesh Vitale MD; When: 2 - 3 days; Reason: Recheck today's complaints. Follow up: Justin Erazo MD; When: 2 - 3 days; Reason: Recheck today's complaints. - Problem is new. - Symptoms have improved. Signatures: Dispatcher [employer] EDCO Howard Akins MD MD cha Williams, Irene, RN RN iw Smirch, Shelby, RN RN ss Page, Corey, PA PA cp Garcia, Victoria RN RN vg1 Corrections: (The following items were deleted from the chart) 06 14:39 14:30 This 55 yrs old Male presents to ER via Ambulatory with complaints of cp Abdominal Pain. cp 16:14 14:34 Abdomen Pelvis W Con+CT.RAD.CHELYZ ordered. EDMS EDMS 17:48 17:47 12/14/2020 17:47 Discharged to Home. Impression: Epigastric pain. Condition is cp Stable. Forms are Medication Reconciliation Form, Thank You Letter, Antibiotic Education, Prescription Opioid Use. Follow up: Minesh Vitale; When: 2 - 3 days; Reason: Recheck today's complaints. Problem is new. Symptoms have improved. cp 19:09 17:48 12/14/2020 17:47 Discharged to Home. Impression: Epigastric pain. Condition is iw Stable. Discharge Instructions: Abdominal Pain, Adult, Gastroesophageal Reflux Disease, Adult. Prescriptions for Carafate 1 gram Oral Tablet - take 1 tablet by ORAL route 4 times per day take on an empty stomach, beginning on waking and last dose at bedtime. dissolve tablet in small amount warm water prior to ingestion; 100 tablet, Zofran 4 mg Oral Tablet - take 1 tablet by ORAL route every 12 hours As needed; 20 tablet. and Forms are Medication Reconciliation Form, Thank You Letter, Antibiotic Education, Prescription Opioid Use. Follow up: Justin Erazo; When: 2 - 3 days; Reason: Recheck today's complaints. Problem is new. Symptoms have improved. cp
--- NOTE | 2020-12-14 17:48 | ER ---
Nurse's Notes [facility] Name: Kalyan Banuelos Age: 55 yrs Sex: Male : 1965 Arrival Date: 12/14/2020 Time: 12:44 Bed 24 Private MD: Ari Saba Diagnosis: Epigastric pain Presentation: 12/14 13:15 Chief complaint: Patient states: Intermittent black stools that began a few days ago. ss PT reports feeling fatigue, dizziness with repositioning and epigastric discomfort. Coronavirus screen: Client denies travel out of the [place] in the last 14 days. Ebola Screen: Patient denies exposure to infectious person. Patient denies travel to an Ebola-affected area in the 21 days before illness onset. Initial Sepsis Screen: Does the patient meet any 2 criteria? No. Patient's initial sepsis screen is negative. Does the patient have a suspected source of infection? No. Patient's initial sepsis screen is negative. Risk Assessment: Do you want to hurt yourself or someone else? Patient reports no desire to harm self or others. Onset of symptoms was December 10, 2020. 13:15 Method Of Arrival: Ambulatory ss 13:15 Acuity: FREDERICK 3 ss Historical: - Allergies: 13:19 Iodine; ss - Home Meds: 13:19 aspirin 81 mg Oral TbEC 1 tab once daily [Active]; atorvastatin 40 mg Oral tab 1 tab ss once daily [Active]; cetirizine 10 mg Oral tab 1 tab once daily [Active]; metformin 500 mg Oral tab 1 tab 2 times per day [Active]; metoprolol tartrate 50 mg Oral tab once daily [Active]; pantoprazole 40 mg Oral TbEC 1 tab once daily [Active]; sertraline 100 mg Oral tab 1 tab once daily [Active]; trazodone 50 mg Oral tab nightly [Active]; zolpidem 10 mg Oral tab 1 tab once daily [Active]; - PMHx: 13:19 Depression; Diabetes; GERD; Hyperlipidemia; Hypertension; ss - Immunization history:: Adult Immunizations up to date. - Social history:: Smoking status: Patient denies any tobacco usage or history of. Screenin:01 Abuse screen: Denies threats or abuse. Nutritional screening: No deficits noted. vg1 Tuberculosis screening: No symptoms or risk factors identified. Fall Risk No fall in past 12 months (0 pts). No secondary diagnosis (0 pts). IV access (20 points). Ambulatory Aid- None/Bed Rest/Nurse Assist (0 pts). Gait- Normal/Bed Rest/Wheelchair (0 pts) Mental Status- Oriented to own ability (0 pts). Total Medrano Fall Scale indicates No Risk (0-24 pts). Assessment: 13:32 General: Appears in no apparent distress. comfortable, Behavior is calm, cooperative. vg1 Pain: Complains of pain in epigastric area and right lower quadrant Pain currently is 3 out of 10 on a pain scale. Pain began 2-3 days ago. Neuro: Level of Consciousness is awake, alert, obeys commands, Oriented to person, place, time, situation. Cardiovascular: Patient's skin is warm and dry. Rhythm is sinus rhythm. Respiratory: Airway is patent Respiratory effort is even, unlabored. GI: Bowel sounds present X 4 quads. Abdomen is tender to palpation in epigastric area Reports diarrhea, nausea, black stool. : No signs and/or symptoms were reported regarding the genitourinary system. EENT: No signs and/or symptoms were reported regarding the EENT system. Derm: Skin is intact, is healthy with good turgor. Musculoskeletal: Circulation, motion, and sensation intact. 14:47 Reassessment: completed oral contrast; CT notified. vg1 14:53 Reassessment: Patient appears in no apparent distress at this time. No changes from vg1 previously documented assessment. Patient and/or family updated on plan of care and expected duration. Pain level reassessed. Patient is alert, oriented x 3, equal unlabored respirations, skin warm/dry/pink. 15:57 Reassessment: Patient appears in no apparent distress at this time. No changes from vg1 previously documented assessment. Patient and/or family updated on plan of care and expected duration. Pain level reassessed. Patient is alert, oriented x 3, equal unlabored respirations, skin warm/dry/pink. Pt states has a h/a; requesting medication, Provider notified. 16:10 Reassessment: Received VO from Amaris MOE to administer 1g of Tylenol PO x1. vg1 16:23 Reassessment: Pt stated had a BM, stated is was 'brown diarrhea'. Provider notified. vg1 17:28 Reassessment: Patient appears in no apparent distress at this time. No changes from vg1 previously documented assessment. Patient and/or family updated on plan of care and expected duration. Pain level reassessed. Patient is alert, oriented x 3, equal unlabored respirations, skin warm/dry/pink. pt states h/a has subsided but is having some Epigastric discomfort. Provider notified Patient states feeling better. 17:29 Reassessment: Received VO from Amaris MOE to administer a GI cocktail PO x1. vg1 19:08 Reassessment: Patient appears in no apparent distress at this time. Patient and/or iw family updated on plan of care and expected duration. Pain level reassessed. Patient is alert, oriented x 3, equal unlabored respirations, skin warm/dry/pink. Patient states feeling better. Patient states symptoms have improved. Vital Signs: 13:15 BP 135 / 85; Pulse 93; Resp 21; Temp 98.5(TE); Pulse Ox 99% on R/A; Weight 137.44 kg; ss Height 5 ft. 11 in. (180.34 cm); Pain 3/10; 14:00 BP 123 / 74; Pulse 84; Resp 20; Pulse Ox 99% ; vg1 14:53 BP 131 / 74; Pulse 85; Resp 20; Pulse Ox 100% on R/A; vg1 15:58 BP 142 / 77; Pulse 85; Resp 20; Pulse Ox 98% ; vg1 17:23 BP 163 / 84; Pulse 86; Resp 18; Pulse Ox 99% ; vg1 13:15 Body Mass Index 42.26 (137.44 kg, 180.34 cm) ED Course: 12:44 Patient arrived in ED. mr 12:44 Ari Saba MD is Private Physician. mr 13:17 Triage completed. ss 13:19 Arm band placed on right wrist. ss 13:23 Howard Glez PA is PHCP. cp 13:23 Howard Akins MD is Attending Physician. cp 13:29 Noelle Pereira, DASH is Primary Nurse. vg1 13:46 Initial lab(s) drawn, by [facility], sent to lab. Inserted saline lock: 20 gauge in right vg1 antecubital area, using aseptic technique. Blood collected. 14:01 Patient has correct armband on for positive identification. Placed in gown. Bed in low vg1 position. Call light in reach. Side rails up X 1. 16:32 Abdomen In Process Unspecified. EDMS 17:47 Minesh Vitale MD is Referral Physician. cp 17:48 Referral Physician role handed off by Minesh Vitale MD cp 17:48 Justin Erazo MD is Referral Physician. cp 19:08 No provider procedures requiring assistance completed. IV discontinued, intact, iw bleeding controlled, No redness/swelling at site. Pressure dressing applied. Administered Medications: 16:20 Drug: Tylenol 1000 mg Route: PO; vg1 17:27 Follow up: Response: No adverse reaction; Pain is decreased vg1 17:34 Drug: GI Cocktail without - (Maalox Suspension 30 ml, Lidocaine Liquid 2 % 15 vg1 ml) Route: PO; 19:09 Follow up: Response: No adverse reaction; Pain is decreased iw Outcome: 17:47 Discharge ordered by MD. cp 19:09 Discharged to home ambulatory. iw 19:09 Condition: good 19:09 Discharge instructions given to patient, Instructed on discharge instructions, follow up and referral plans. medication usage, Demonstrated understanding of instructions, follow-up care, medications, Prescriptions given X 2. 19:09 Patient left the ED. iw Signatures: Dispatcher [employer] AUGUSTTX Areli Robles Irene, RN RN iw Sherine Barreto, DASH RN Howard Mishra PA PA cp Garcia, Victoria, RN RN vg1
[2020-12-14] MEDS ORDERED: MAGNES/ALUMIN/SIMET 30ML UCUP ONE (17:50)
[2020-12-14] MEDS ORDERED: LIDOCAINE VISCOUS 2% SOLN 15 ML UDC ONE (17:51)
[2020-12-14 19:16] VITALS: TEMP 98.5
[2020-12-14 19:22] VITALS: BP 163/84; O2SAT 99
--- NOTE | 2020-12-15 10:28 | EKG ---
Test Date: 2020-12-14 Test Time: 13:53:06 Clinical Review Specialist: GIULIA MEASUREMENT RESULTS: Intervals: Rate: 84 MT: 176 QRSD: 88 QT: 368 QTc: 434 [place]: P: 43 MT: 176 QRS: 9 T: 37 INTERPRETIVE STATEMENTS: Normal sinus rhythm Normal ECG Compared to ECG 08/24/2020 16:22:08 No significant changes Electronically Signed On 12-15-20 10:25:51 CDT by Vin Meredith
== END 2020-12-14 19:09 | disposition home or self-care (01) ==
LOC: ER 12:39
DX: R10.13 Epigastric pain (principal); R53.83 Other fatigue; I10 Essential (primary) hypertension; E11.9 Type 2 diabetes mellitus without complications; Z79.82 Long term (current) use of aspirin; Z91.048 Other nonmedicinal substance allergy status
CPT/HCPCS: 36415; 74176; 80048; 80076; 83690; 83735; 84484; 85025; 85610; 85730; 93005; 99284

== ENCOUNTER 2021-03-31 09:34 | Inpatient (IN) | payer OTHER ==
[2021-03-31 09:58] LABS: Absolute Lymphocytes (CBC) 1.4 K/uL (0.7-4.9); Basophils % 1.1 % (0-1.3); Hematocrit 40.2 % (39.6-49.0); Lymphocytes % 23.8 % (15.3-44.8); MPV 7.6 fL (7.6-11.3); RBC Red Blood Cell Count 5.12 M/uL (4.33-5.43)
[2021-03-31 10:00] LABS: Protime INR 1.07
[2021-03-31 10:21] LABS: ALT/SGPT 67 U/L (12-78); AST/SGOT 45 U/L (15-37); Alkaline Phosphatase 86 U/L (45-117); BUN Blood Urea Nitrogen 13 mg/dL (7-18); Bicarbonate 26 mmol/L (21-32); Bilirubin Direct 0.1 mg/dL (0-0.2); Bilirubin Total 0.5 mg/dL (0.2-1.0); Glucose Level 121 mg/dL (74-106); Magnesium 2.4 mg/dL (1.8-2.4); NT PRO-BNP 18 pg/mL (<125); Potassium 3.8 mmol/L (3.5-5.1); Protein, Total 7.9 g/dL (6.4-8.2); Sodium Level 138 mmol/L (136-145); Troponin (Emerg Dept Use Only) < 0.02 ng/mL (0.0-0.045)
--- NOTE | 2021-03-31 10:46 | RAD REPORT ---
EXAM DESCRIPTION: RAD - Chest Single View - 03/31/2021 10:24 am CLINICAL HISTORY: CHEST PAIN COMPARISON: Chest Single View dated 08/24/2020; Chest Pa And Lat (2 Views) dated 02/04/2020; Chest Sing le View dated 01/13/2020 FINDINGS: Lines: None. Lungs: No evidence of edema or pneumonia. Pleural: No significant pleural effusions or pneumothorax. Cardiac: The heart size is within normal limits. Bones: No acute fractures. ACDF in the cervical spine. Other: IMPRESSION: No acute cardiopulmonary disease.
--- NOTE | 2021-03-31 11:21 | EDPHYS ---
Physician Documentation [facility] Name: Kalyan Banuelos Age: 55 yrs Sex: Male : 1965 Arrival Date: 03/31/2021 Time: 09:38 Bed 7 Private MD: ED Physician Angel Granados HPI: 03/31 11:17 This 55 yrs old Male presents to ER via EMS with complaints of Chest Pain. [facility] 11:17 The patient or guardian reports chest pain that is located primarily in the substernal [facility] area. Onset: gradually, 1 week(s) ago. The pain radiates to the left arm. Associated signs and symptoms: Pertinent positives: syncope. The chest pain is described as aching, a heaviness. Duration: The patient or guardian reports multiple episodes, that wax and wane. Is a 55-year-old male with a history of depression, GERD, hyperlipidemia, hyper tension, diabetes mellitus the presents emerged part with complaints of substernal chest pain which is been going off and on of since this past Monday. Patient states that on Monday he experienced a syncopal episode while at work. Patient states on Monday and states feeling not well, patient states he nearly syncopized but was able to finish his work in his office. Patient states this morning while getting his lunch ready for work he felt weak like he was about to pass out. Patient states that having substernal chest pain which radiates to the left arm.. Historical: - Allergies: 09:44 No Known Allergies; ap3 - Home Meds: :44 aspirin Oral [Active]; atorvastatin Oral [Active]; cetirizine Oral [Active]; metformin ap3 Oral [Active]; metoprolol tartrate Oral [Active]; pantoprazole Oral [Active]; sertraline Oral [Active]; trazodone oral [Active]; zolpidem oral [Active]; - PMHx: 09:44 Depression; GERD; Hyperlipidemia; Hypertension; Diabetes; ap3 - Immunization history:: Adult Immunizations up to date, Client reports receiving the 2nd dose of the Covid vaccine, Date received: October 2020. - Social history:: Smoking status: Patient denies any tobacco usage or history of. Patient/guardian denies using alcohol, street drugs. ROS: 11:17 Constitutional: Negative for fever, chills, and weight loss. jmm 11:17 Cardiovascular: Positive for chest pain. 11:17 Neuro: Positive for syncope. 11:17 All other systems are negative. Exam: 11:17 Constitutional: This is a well developed, well nourished patient who is awake, alert, jmm and in no acute distress. Head/Face: atraumatic. Eyes: EOMI, no conjunctival erythema appreciated ENT: Moist Mucus Membranes Neck: Trachea midline, Supple Chest/axilla: Normal chest wall appearance and motion. Cardiovascular: Regular rate and rhythm. No edema appreciated Respiratory: Normal respirations, no respiratory distress appreciated Abdomen/GI: Non distended, soft Back: Normal ROM Skin: General appearance color normal MS/ Extremity: Moves all extremities, no obvious deformities appreciated, no edema noted to the lower extremities Neuro: Awake and alert, normal gait Psych: Behavior is normal, Mood is normal, Patient is cooperative and pleasant Vital Signs: 09:43 BP 140 / 91; Pulse 82; Resp 18; Pulse Ox 97% ; Weight 131.54 kg; Height 6 ft. (182.88 ap3 cm); Pain 6/10; 09:49 BP 140 / 91; Pulse 81; Resp 18; Pulse Ox 99% on R/A; Pain 3/10; ch5 12:07 BP 137 / 66; Pulse 76; Resp 18; Pulse Ox 97% on R/A; ch5 15:01 BP 135 / 61; ap3 09:43 Body Mass Index 39.33 (131.54 kg, 182.88 cm) ap3 MDM: 09:55 Patient medically screened. [facility] 11:19 The patient was given aspirin in the Emergency Department. Data reviewed: vital signs, [facility] nurses notes, lab test result(s), radiologic studies, plain films. ED course: I discussed the patient with BRIA Campos whom accepted the patient to Dr. Pink of service. 03/31 09:43 Order name: Basic Metabolic Panel [facility] 03/31 09:43 Order name: CBC with Diff; Complete Time: 10:19 [facility] 03/31 09:43 Order name: Hepatic Function; Complete Time: 10:27 [facility] 03/31 09:43 Order name: Magnesium; Complete Time: 10: [facility] 03/31 09:43 Order name: NT PRO-BNP; Complete Time: 10:27 5 03/31 09:43 Order name: Protime (+inr); Complete Time: 10:27 5 03/31 09:43 Order name: Troponin (emerg Dept Use Only); Complete Time: 10:27 5 03/31 09:43 Order name: XRAY Chest (1 view); Complete Time: 10:53 5 03/31 09:44 Order name: Basic Metabolic Panel; Complete Time: 10:27 [facility] 03/31 10:19 Order name: D-Dimer; Complete Time: 10:27 [facility] 03/31 12:04 Order name: SARS-COV-2 RT PCR; Complete Time: 12:10 [facility] 03/31 14:07 Order name: US; Complete Time: 14:18 [facility] 03/31 09:43 Order name: EKG; Complete Time: 09:44 5 03/31 09:43 Order name: Cardiac monitoring; Complete Time: 09:44 [facility] 03/31 09:43 Order name: EKG - Nurse/Tech; Complete Time: 09:44 [facility] 03/31 09:43 Order name: IV Saline Lock; Complete Time: 09:44 5 03/31 09:43 Order name: Labs collected and sent; Complete Time: 09:44 5 03/31 09:43 Order name: O2 Per Protocol; Complete Time: 09:44 5 03/31 09:43 Order name: O2 Sat Monitoring; Complete Time: 09:44 ch5 Administered Medications: 11:24 Not Given (given by EMS): Aspirin Chewable Tablet 324 mg PO once; 81 mg tablets x 4 ap3 12:51 Drug: Reglan (metoCLOPramide) 10 mg Route: IVP; Site: left upper arm; ch5 13:46 Follow up: Response: Pain is decreased ch5 15:01 Follow up: Response: No adverse reaction ap3 12:58 Drug: diphenhydrAMINE 25 mg Route: IVP; Site: left upper arm; ch5 13:47 Follow up: Response: Pain is decreased ch5 15:01 Follow up: Response: No adverse reaction ap3 Disposition: 04/01 11:09 Co-signature as Attending Physician, Angel Granados MD I agree with the assessment and kdr plan of care. Disposition Summary: 03/31/21 11:21 Hospitalization Ordered Hospitalization Status: Observation jmm Location: Telemetry/MedSurg (observation) jmm Condition: Stable jmm Problem: new jmm Symptoms: are unchanged jmm Bed/Room Type: Standard jmm Provider: Peng Woodson(03/31/21 12:01) jmm Room Assignment: 429(03/31/21 14:13) bd Diagnosis - Chest pain, unspecified jmm - Syncope jmm Forms: - Medication Reconciliation Form jmm - SBAR form jmm Signatures: Dispatcher [employer] EDMS Maryam Brown Kevin, MD MD kdr Fei Ramirez PA PA jmm Linda Clinton RN RN ap3 Michael Alegre RN RN ch5 Corrections: (The following items were deleted from the chart) 03/31 09:46 09:44 Allergies: Iodine; ap3 ap3 10:19 09:57 D-DIMER+COAG.LAB.BRZ ordered. EDMS EDMS 11:08 09:57 CORONAVIRUS+MR.LAB.BRZ ordered. EDMS EDMS 12:01 11:21 Prasanth Pink m jmm 14:13 11:21 jm bd
--- NOTE | 2021-03-31 11:21 | ER ---
Nurse's Notes [facility] Name: Kalyan Banuelos Age: 55 yrs Sex: Male : 1965 Arrival Date: 03/31/2021 Time: 09:38 Bed 7 Private MD: Diagnosis: Chest pain, unspecified;Syncope Presentation: 03/31 09:43 Chief complaint: EMS states: patient complains of chest pain X's 1 week. Coronavirus ap3 screen: Client presents with at least one sign or symptom that may indicate coronavirus-19. Standard/surgical mask placed on the client. Ebola Screen: No symptoms or risks identified at this time. Initial Sepsis Screen: Does the patient meet any 2 criteria? No. Patient's initial sepsis screen is negative. Does the patient have a suspected source of infection? No. Patient's initial sepsis screen is negative. Risk Assessment: Do you want to hurt yourself or someone else? Patient reports no desire to harm self or others. Onset of symptoms was March 23, 2021. Care prior to arrival: Medication(s) given: ASA, 325 mg, x 1, Nitroglycerin, 0.4 mg SL x 1, zofran 4 mg. 09:43 Method Of Arrival: EMS: [facility] ap3 09:43 Acuity: FREDERICK 3 ap3 Triage Assessment: 09:47 General: Appears in no apparent distress. Behavior is calm, cooperative. Pain: ap3 Complains of pain in anterior aspect of left upper chest Pain radiates to left arm Pain currently is 5 out of 10 on a pain scale. at worst was 10 out of 10 on a pain scale. Quality of pain is described as dull, Pain began one week ago. Neuro: Level of Consciousness is awake, alert, obeys commands, Oriented to person, place, time, situation, Appropriate for age Moves all extremities. Speech is normal. Cardiovascular: Reports chest pain, Denies shortness of breath, Rhythm is sinus rhythm. Respiratory: Airway is patent Respiratory effort is even, unlabored, Respiratory pattern is regular, symmetrical. GI: Reports nausea. Historical: - Allergies: 09:44 No Known Allergies; ap3 - Home Meds: 09:44 aspirin Oral [Active]; atorvastatin Oral [Active]; cetirizine Oral [Active]; metformin ap3 Oral [Active]; metoprolol tartrate Oral [Active]; pantoprazole Oral [Active]; sertraline Oral [Active]; trazodone oral [Active]; zolpidem oral [Active]; - PMHx: 09:44 Depression; GERD; Hyperlipidemia; Hypertension; Diabetes; ap3 - Immunization history:: Adult Immunizations up to date, Client reports receiving the 2nd dose of the Covid vaccine, Date received: October 2020. - Social history:: Smoking status: Patient denies any tobacco usage or history of. Patient/guardian denies using alcohol, street drugs. Screenin:46 Abuse screen: Denies threats or abuse. Nutritional screening: No deficits noted. ap3 Tuberculosis screening: No symptoms or risk factors identified. Fall Risk None identified. No fall in past 12 months (0 pts). No secondary diagnosis (0 pts). IV access (20 points). Ambulatory Aid- None/Bed Rest/Nurse Assist (0 pts). Gait- Normal/Bed Rest/Wheelchair (0 pts) Mental Status- Oriented to own ability (0 pts). Total Medrano Fall Scale indicates No Risk (0-24 pts). Assessment: 09:49 Reassessment: No changes from previously documented assessment. General: Appears in no ch5 apparent distress. Behavior is anxious. 11:08 Reassessment: Patient and/or family updated on plan of care and expected duration. Pain ap3 level reassessed. Patient is alert, oriented x 3, equal unlabored respirations, skin warm/dry/pink. 12:22 Reassessment: No changes from previously documented assessment. Patient and/or family ap3 updated on plan of care and expected duration. Pain level reassessed. Patient is alert, oriented x 3, equal unlabored respirations, skin warm/dry/pink. 13:17 Reassessment: No changes from previously documented assessment. Patient and/or family ap3 updated on plan of care and expected duration. Pain level reassessed. Patient is alert, oriented x 3, equal unlabored respirations, skin warm/dry/pink. 14:54 Reassessment: Report called to 4th floor RN. ch5 Vital Signs: 09:43 BP 140 / 91; Pulse 82; Resp 18; Pulse Ox 97% ; Weight 131.54 kg; Height 6 ft. (182.88 ap3 cm); Pain 6/10; 09:49 BP 140 / 91; Pulse 81; Resp 18; Pulse Ox 99% on R/A; Pain 3/10; ch5 12:07 BP 137 / 66; Pulse 76; Resp 18; Pulse Ox 97% on R/A; ch5 15:01 BP 135 / 61; ap3 09:43 Body Mass Index 39.33 (131.54 kg, 182.88 cm) ap3 ED Course: 09:38 Patient arrived in ED. ss 09:42 Michael Alegre, DASH is Primary Nurse. [facility] 09:44 Fei Ramirez PA is PHCP. [facility] 09:44 Angel Granados MD is Attending Physician. [facility] 09:44 Triage completed. ap3 09:48 Arm band placed on left wrist. EKG done per protocol. Performed by ED Staff. Shown to ap3 ED physician. 09:49 Patient has correct armband on for positive identification. Bed in low position. Call ap3 light in reach. Side rails up X2. patient monitor on. Pulse ox on. NIBP on. Door closed. Noise minimized. 09:49 Inserted saline lock: 20 gauge in left upper arm, using aseptic technique. Blood 5 collected. 10:11 Basic Metabolic Panel Sent. 5 10:11 Basic Metabolic Panel Sent. [facility] 10:11 XRAY Chest (1 view) Sent. [facility] 10:11 Hepatic Function Sent. [facility] 10:11 Magnesium Sent. [facility] 10:11 NT PRO-BNP Sent. [facility] 10:11 Troponin (emerg Dept Use Only) Sent. [facility] 10:12 Initial lab(s) drawn, by ED staff, sent to lab. EKG done, by ED staff, reviewed by Fei MOE COVID swab sent to lab. 10:24 XRAY Chest (1 view) In Process Unspecified. EDMS 11:20 Prasanth Pink DO is Hospitalizing Provider. m 11:42 Admitting physician to see patient. ap3 12:00 Peng Woodson MD is Hospitalizing Provider. [facility] 15:00 No provider procedures requiring assistance completed. Patient admitted, IV remains in ap3 place. Administered Medications: 11:24 Not Given (given by EMS): Aspirin Chewable Tablet 324 mg PO once; 81 mg tablets x 4 ap3 12:51 Drug: Reglan (metoCLOPramide) 10 mg Route: IVP; Site: left upper arm; ch5 13:46 Follow up: Response: Pain is decreased ch5 15:01 Follow up: Response: No adverse reaction ap3 12:58 Drug: diphenhydrAMINE 25 mg Route: IVP; Site: left upper arm; ch5 13:47 Follow up: Response: Pain is decreased ch5 15:01 Follow up: Response: No adverse reaction ap3 Outcome: 11:21 Decision to Hospitalize by Provider. karol 15:00 Admitted to Med/surg accompanied by tech, with chart. ap3 15:00 Condition: good 15:00 Discharge instructions given to patient, Instructed on the need for admit. 15:04 Patient left the ED. 5 Signatures: Dispatcher [employer] EDMS Fei Ramirez PA PA jmm Smirch, Shelby, RN RN Carlene Ivy [facility] Linda Clinton RN RN 3 Michael Alegre RN RN 5 Corrections: (The following items were deleted from the chart) 09:46 09:44 Allergies: Iodine; ap3 ap3 10:19 10:11 D-DIMER+COAG.LAB.BRZ drawn and sent. [address]
[2021-03-31] MEDS ORDERED: HYDROCODONE/APAP 5/325 MG TAB PO PRN ×2 (12:39→13:52)
[2021-03-31] MEDS ORDERED: ACETAMINOPHEN 500 MG TAB PO PRN (12:56)
[2021-03-31] MEDS ORDERED: ONDANSETRON 4 MG/2 ML VIAL IV PRN (12:56)
[2021-03-31] MEDS ORDERED: METOCLOPRAMIDE 10 MG/2mL INJ ONE (13:12)
[2021-03-31] MEDS ORDERED: NA CHLORIDE 0.9% 50 ML ONE (13:13)
[2021-03-31] MEDS ORDERED: DIPHENHYDRAMINE 50 MG/ML VIAL ONE (13:13)
[2021-03-31] MEDS ORDERED: LABETALOL 20 MG/4ML SYRINGE IV PRN (13:51)
--- NOTE | 2021-03-31 13:55 | P.HP ---
Certification for Inpatient Patient admitted to: Inpatient With expected LOS: >2 Midnights Patient will require the following post-hospital care: None Practitioner: I am a practitioner with admitting privileges, knowledge of patient current condition, hospital course, and medical plan of care. Services: Services provided to patient in accordance with Admission requirements found in Title 42 Section 412.3 of the Code of Federal Regulations Patient History Date of Service: 03/31/21 Reason for admission: Chest pain History of Present Illness: Patient is a 55-year-old male with a past medical history significant for HLD, hypertension, depression, GERD, insomnia, DM 2 who presents with complaint of chest pain that is located in the substernal chest area. Patient reported that chest pain has been ongoing for the past 1 week. Patient rated pain as 6/10 in severity and described pain as pressure in quality. Patient reported that chest pain radiates to left the chest wall area. Patient reports associated signs and symptoms of left upper arm numbness, shortness of breath with exertion and left fingers tingling\numbness. Patient reported that 2 days ago he was at work when he became dizzy and eventually passed out. Patient reported that he regained consciousness shortly after. Patient also reported that this morning he had a near syncopal episode as after feeling dizzy. Patient denies any other signs or symptoms. Symptoms are aggravated or relieved by nothing. Patient decided to present to the hospital for medical evaluation. Of note, patient reported that he has been having diarrhea since October 2020. Patient reported that he followed up with a GI doctor and had a negative colonoscopy. Allergies iodine Allergy (Verified 01/15/20 10:30) Itching/Hives/Rash Home medications list reviewed: Yes (3) Home Medications: Atorvastatin Calcium [Lipitor] 40 mg PO BEDTIME 01/15/20 Metformin ER [Glucophage ER*] 1,000 mg PO BID 01/15/20 Pantoprazole [Protonix Tab*] 40 mg PO BID 01/15/20 Sertraline [Zoloft*] 150 mg PO DAILY 01/15/20 Trazodone HCl 100 mg PO BEDTIME 01/15/20 Cetirizine HCl [Zyrtec] 1 tab PO DAILY 03/31/21 Montelukast [Singulair*] 1 tab PO DAILY 03/31/21 Semaglutide [Ozempic] 50 units SQ EVERY 7TH DAY 03/31/21 Temazepam 1 tab PO BEDTIME 03/31/21 Testosterone Enanthate 2,000 mg SQ SEECOM 03/31/21 - Past Medical/Surgical History Diabetic: Yes -: Covid 19 PNA Positive -: Essential hypertension -: GERD -: Type 2 diabetes mellitus -: Hyperlipidemia -: Carpal tunnel -: Cholecystectomy Psychosocial/ Personal History: Lives at home with fiancee - Family History Mother -: Diabetes Father -: Heart disease, Stroke - Social History Smoking Status: Former smoker Alcohol use: No CD- Drugs: No Caffeine use: No Review of Systems General: Malaise Eyes: Unremarkable ENT: Unremarkable Respiratory: SOB with Excertion Cardiovascular: Chest Pain, Light Headedness Gastrointestinal: Diarrhea Genitourinary: Unremarkable Musculoskeletal: Unremarkable Integumentary: Unremarkable Neurological: Numbness, Other (Dizziness ) Lymphatics: Unremarkable Physical Examination - Physical Exam General: Alert, In no apparent distress, Oriented x3 HEENT: Atraumatic, PERRLA, Mucous membr. moist/pink, EOMI, Sclerae nonicteric Neck: Supple, 2+ carotid pulse no bruit, No LAD, Without JVD or thyroid abnormality Respiratory: Clear to auscultation bilaterally, Normal air movement Cardiovascular: Regular rate/rhythm, Normal S1 S2 Capillary refill: <2 Seconds Gastrointestinal: Normal bowel sounds, No tenderness Musculoskeletal: No tenderness Integumentary: No rashes, No breakdown Neurological: Normal gait, Normal speech, Normal tone, Normal affect Lymphatics: No axilla or inguinal lymphadenopathy External genitalia: Deferred Rectal: Deferred - Studies Laboratory Data (last 24 hrs) 03/31/21 09:46: PT 12.3, INR 1.07 03/31/21 09:46: WBC 6.10, Hgb 13.1 L, Hct 40.2, Plt Count 371 03/31/21 09:46: Sodium 138, Potassium 3.8, BUN 13, Creatinine 1.23, Glucose 121 H, Magnesium 2.4 D, Total Bilirubin 0.5, AST 45 H, ALT 67, Alkaline Phosphatase 86 Assessment and Plan - Plan -Chest pain of unclear etiology. Backup Engineer consulted. Echocardiogram pending. Will trend troponins. Telemetry to monitor for any significant arrhythmia. Will await further recommendation from gizzard skin remover. --Syncope. Echocardiogram and carotid Doppler pending. Will get some orthostatic vital signs. --Diarrhea. Stool studies pending to rule out any infectious process. Continue supportive care. --DM2. BS monitoring with sliding scale insulin. --Hypertension. Unstable. Will manage BP with home medication and labetalol prn. --GERD. Continue protonix. --Insomnia. Continue Temazepam. --HLD. Continue statin. --Obesity. Likely secondary to excess calories intake. Patient counseled on diet and exercise therapy. --CKD 2. Baseline functions unknown. We will continue to monitor renal functions. --DVT prophylaxis with Lovenox subQ I have had discussion about advanced directives with the patient during this hospital admission. Addressed code status and goals of care. Spent more than 30 minutes. Case discussed withpatient and nurse. The following document was completed using voice recognition software. This can produce bulk filler errors that can at times significantly distort words and phrases. Please interpret any aspect of the note that is nonsensical in light of this fact. Plan to discharge in: 48 Hours - Advance Directives Does patient have a Living Will: No Does patient have a Durable POA for Healthcare: No - Code Status/Comfort Care Code Status Assessed: Yes Code Status: Full Code Physician Review: Patient Assessed, Agree with Above Assessment and Plan Critical Care: No
--- NOTE | 2021-03-31 14:06 | RAD REPORT ---
EXAM DESCRIPTION: - CP - 03/31/2021 1:55 pm CLINICAL HISTORY: Syncope Headache, drowsiness COMPARISON: Chest Single View dated 08/24/2020 TECHNIQUE: Real-time sonographic evaluation of both carotid systems was performed. Doppler interroga tion was performed with waveform tracing bilaterally. FINDINGS: Normal high resistance waveforms are noted in both external carotid arteries. The common c arotid arteries and internal carotid arteries show normal low resistance waveforms. Small amount of soft plaque is seen in both carotid bulbs, slightly greater on the left. Peak systoli c and end diastolic velocity values and the ICA/CCA ratios are in the non-hemodynamically significant range. Antegrade flow seen in both vertebral arteries. IMPRESSION: Small amount of soft plaque is seen in both carotid bulbs, slightly greater on the left. No evidence of a hemodynamically significant stenosis.
[2021-03-31] MEDS ORDERED: POTASSIUM CL SA 10 MEQ TAB PO ONE (15:00)
[2021-03-31 15:18] VITALS: BMI 39.3
[2021-03-31] MEDS: INSULIN -REGULAR HUMAN 50 UNIT/0.5 ML ML SQ SCH ×2 (15:53→21:00)
[2021-03-31] MEDS ORDERED: TEMAZEPAM 15 MG CAP PO PRN (16:34)
[2021-03-31] MEDS: MORPHINE 2 MG/ML SYR IV PRN (16:41)
[2021-03-31 17:41] LABS: NT PRO-BNP 17 pg/mL (<125); Troponin I < 0.02 ng/mL (0.0-0.045)
[2021-03-31 18:01] LABS: Urine Appearance CLOUDY (Clear); Urine Blood NEGATIVE (Negative); Urine Color YELLOW (Yellow); Urine Glucose NEGATIVE (Negative); Urine Protein NEGATIVE (Negative); Urine Specific Gravity >=1.030 (1.005-1.030); Urine Urobilinogen 0.2 mg/dL (0.2-1.0); Urine pH 5.5 (5.0-7.0)
[2021-03-31 18:04] LABS: Urine Bilirubin 1+ (Negative); Urine Microscopic Reflex ORDER UMIC
[2021-03-31 18:18] LABS: Urine Bacteria <20 /HPF (NONE SEEN); Urine RBC <5 /HPF (NONE SEEN)
[2021-03-31] MEDS: METOPROLOL XL 50 MG TAB PO SCH (21:46)
[2021-03-31] MEDS: predniSONE 10 MG TAB PO SCH (21:47)
[2021-03-31] MEDS: TRAZODONE 50 MG TABLET PO SCH (21:47)
[2021-04-01 05:18] LABS: Absolute Lymphocytes (CBC) 1.2 K/uL (0.7-4.9); Basophils % 1.2 % (0-1.3); Hematocrit 39.6 % (39.6-49.0); Lymphocytes % 20.1 % (15.3-44.8); MPV 7.9 fL (7.6-11.3); RBC Red Blood Cell Count 5.01 M/uL (4.33-5.43)
[2021-04-01 05:31] LABS: Potassium 4.4 mmol/L (3.5-5.1)
[2021-04-01] MEDS: INSULIN -REGULAR HUMAN 50 UNIT/0.5 ML ML SQ SCH ×4 (07:30→19:57)
[2021-04-01] MEDS: PANTOPRAZOLE 40MG TABLET PO SCH (08:26)
[2021-04-01] MEDS: ASPIRIN 81 MG CHEWABLE TABLET PO SCH (08:26)
[2021-04-01] MEDS: predniSONE 10 MG TAB PO SCH ×2 (08:26→19:55)
[2021-04-01] MEDS: ATORVASTATIN 40 MG TAB PO SCH (08:26)
[2021-04-01] MEDS: ENOXAPARIN 40 MG/0.4 ML SQ SCH (08:26)
[2021-04-01] MEDS: MONTELUKAST 10 MG TAB PO SCH (08:26)
[2021-04-01] MEDS: SERTRALINE HCL 100 MG TAB PO SCH (08:26)
[2021-04-01] MEDS: METOPROLOL XL 50 MG TAB PO SCH ×2 (09:00→19:54)
[2021-04-01] MEDS: MORPHINE 2 MG/ML SYR IV PRN ×2 (12:16→19:05)
--- NOTE | 2021-04-01 13:44 | CON ---
Date of Consultation: 03/31/2021 Reason For Consultation: Chest pain and syncope. History Of Present Illness: Mr. Banuelos is a 55-year-old white male with a history of dyslipidemia, di abetes, gastroesophageal reflux disease, depression, sounds like he is having orthostatic hypotension episode. Has had multiple syncopal episodes normally when he stands up. He has very atypical chest pain. Has had some stress test at [facility] and he was told he may need a catheterization, but this was never done. He never followed up and never called them for an appointment. He came in to the emergency room with another episode of syncope. His chest pain is atypical , sharp, sta bbing, not related to exertion. Denied PND, orthopnea, pedal edema, palpitations, or syncope. Past Medical History: As stated above. Allergies: HE IS ALLERGIC TO IODINE. Review of Systems: Negative. Social History: Negative. Family History: Negative. Medications: Include Lipitor, metformin, Protonix, Ozempic, Zoloft. Physical Examination: Vital Signs: Stable, afebrile. General: No acute distress. HEENT: Negative. Neck: Supple with no bruit. Chest: Clear. Cardiac: Normal. Abdomen: Benign, but obese. Extremities: Revealed no clubbing, cyanosis, or edema. Diagnostic Data: All normal. Carotid Doppler was normal. EKG, troponin, BNP, CPKs, and MBs were al l normal. Impression And Plan: 1.Orthostatic hypotension. I think the patient needs to be on midodrine. 2.Atypical chest pain, history of abnormal stress test. 3.Dyslipidemia. 4.Diabetes. 5.Gastroesophageal reflux disease. 6.Depression. 7.Obesity. I feel more comfortable repeating a stress test on Mr. Banuelos as I do not have the record s and I am not so sure what the results show for sure, but his report said that he had possible atten uation artifact. I do not feel the need to do a heart catheterization on him with a normal EKG and a normal troponin, especially with his allergy to iodine and him being diabetic; however, I would rath er hold on the catheterization unless the stress shows something significant. Continue present regim en. NB/MODL Voice ID: [id number] Report ID: [id number]
--- NOTE | 2021-04-01 15:38 | ECHO ---
HEIGHT: 6 ft 0 in WEIGHT: 290 lb 0 oz DATE OF STUDY: 04/01/[address]: Bradley Nowak 2-DIMENSIONAL: YES M.MODE: YES DOPPLER: YES COLOR FLOW: YES TDS: NO PORTABLE: NO DEFINITY: NO BUBBLE STUDY: NO DIAGNOSIS: CHEST PAIN CARDIAC HISTORY: CATHERIZATION: NO SURGERY: NO PROSTHETIC VALVE: NO PACEMAKER: NO MEASUREMENTS (cm) DIASTOLIC (NORMALS) SYSTOLIC (NORMALS) IVSd 1.1 (0.6-1.2) LA Diam 2.5 (1.9-4.0) LVEF 55% LVIDd 4.2 (3.5-5.7) LVIDs 3.0 (2.0-3.5) %FS 28% LVPWd 1.1 (0.6-1.2) Ao Diam 3.0 (2.0-3.7) 2 DIMENSIONAL ASSESSMENT: RIGHT ATRIUM: NORMAL LEFT ATRIUM: NORMAL RIGHT VENTRICLE: NORMAL LEFT VENTRICLE: NORMAL TRICUSPID VALVE: NORMAL MITRAL VALVE: NORMAL PULMONIC VALVE: NORMAL AORTIC VALVE: NORMAL PERICARDIAL EFFUSION: NONE AORTIC ROOT: NORMAL LEFT VENTRICULAR WALL MOTION: NORMAL DOPPLER/COLOR FLOW: NORMAL COMMENTS: NORMAL LEFT VENTRICULAR EJECTION FRACTION 55-60%. NORMAL WALL MOTION. TRACE TRICUSPID REGURGITATION. TECHNOLOGIST: Earnest GUEVARA
--- NOTE | 2021-04-01 16:00 | EKG ---
Test Date: 2021-03-31 Test Time: 09:34:31 Sandwich Counter Attendant: ALP MEASUREMENT RESULTS: Intervals: Rate: 82 HI: 176 QRSD: 86 QT: 386 QTc: 450 [place]: P: 50 HI: 176 QRS: 10 T: 66 INTERPRETIVE STATEMENTS: Normal sinus rhythm Normal ECG Compared to ECG 12/14/2020 13:53:06 No significant changes Electronically Signed On 04-01-21 15:56:38 CDT by Vin Meredith
[2021-04-01] MEDS: TRAZODONE 50 MG TABLET PO SCH (19:53)
--- NOTE | 2021-04-01 20:23 | P.PN ---
Date of Service: 04/01/21 Subjective: feeling slightly better, still with intermittent mild chest pain, has not gotten out of bed more concerned about ongoign diarrhea for last 4-5 months, s/p eval by GI ROS: 10 point ROS otherwise negative Physical Exam: Gen: NAD HEENT: normal conjunctiva, sclera anicteric CV: regular rate/rhythm, no edema Pulm: CTAB, no wheeze/rales Abd: soft, nontender, nondistended Integumentary: no rash/lesions Problem List: Chest pain, unclear etiology Syncope Orthostatic vital signs DM2, non-insulin dependent HTN GERD Insomnia Obesity CKD2 trop negative, echo ordered cardio consulted, recommend stress test, unfortunately machine is broken today and may not be repaired until tomorrow patient reports ongoing diarrhea for last 4-5 months, s/p EGD/c-scope. States 2 GI doctors told him they don't think it is IBS and think he may have had a stroke Per patient's request - Neuro consulted, may benefit from MRI continue home meds as appropriate Dispo: anticipate dc home in ~1-2 days Time Spent Managing Pts Care (In Minutes): 35
[2021-04-01] MEDS: MIDODRINE HCL 5 MG TABLET PO SCH (21:07)
[2021-04-02 06:43] LABS: Absolute Lymphocytes (CBC) 1.6 K/uL (0.7-4.9); Basophils % 1.2 % (0-1.3); Hematocrit 39.7 % (39.6-49.0); Lymphocytes % 20.1 % (15.3-44.8); MPV 7.4 fL (7.6-11.3); RBC Red Blood Cell Count 5.04 M/uL (4.33-5.43)
[2021-04-02 07:05] LABS: Albumin 3.8 g/dL (3.4-5.0); Bilirubin Total 0.3 mg/dL (0.2-1.0); Magnesium 2.6 mg/dL (1.8-2.4); Protein, Total 7.7 g/dL (6.4-8.2)
[2021-04-02] MEDS: INSULIN -REGULAR HUMAN 50 UNIT/0.5 ML ML SQ SCH ×4 (07:30→20:49)
[2021-04-02] MEDS ORDERED: INFLUENZA VACCINE (for 6+ mo) 0.5 ML DOSE IMVAC ONE ×2 (08:00→21:53)
[2021-04-02] MEDS ORDERED: REGADENOSON 0.4 MG/5 ML SYR IV ONE (08:00)
[2021-04-02] MEDS: ASPIRIN 81 MG CHEWABLE TABLET PO SCH (08:03)
[2021-04-02] MEDS: SERTRALINE HCL 100 MG TAB PO SCH (08:03)
[2021-04-02] MEDS: PANTOPRAZOLE 40MG TABLET PO SCH (08:03)
[2021-04-02] MEDS: MONTELUKAST 10 MG TAB PO SCH (08:03)
[2021-04-02] MEDS: ENOXAPARIN 40 MG/0.4 ML SQ SCH (08:03)
[2021-04-02] MEDS: ATORVASTATIN 40 MG TAB PO SCH (08:03)
[2021-04-02] MEDS: MIDODRINE HCL 5 MG TABLET PO SCH ×3 (08:04→20:49)
--- NOTE | 2021-04-02 12:54 | RAD REPORT ---
EXAM DESCRIPTION: NM - Rest Stress Cardiac Imaging - 04/02/2021 10:05 am CLINICAL HISTORY: CP Chest pain. COMPARISON: No comparisons TECHNIQUE: The patient was administered approximately 10mCi of Tc 99m Sestamibi prior to resting SPE CT imaging of the heart. The patient was then administered approximately 30 mCi of Tc 99m Sestamibi f ollowing exercise or pharmacologic stress. Multiplanar SPECT images were reviewed. FINDINGS: No stress induced ischemic defect is seen to suggest stress induced ischemia. Fixed defect is seen along the inferior wall on both rest and stress imaging most compatible with scar tissue fro m prior infarct. Due to technical issues, accurate volume measurements and ejection fraction could not be obtained. IMPRESSION: No stress induced ischemia. 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
--- NOTE | 2021-04-02 13:23 | RAD REPORT ---
EXAM DESCRIPTION: MRI - Brain W/Wo Cont - 04/02/2021 1:09 pm CLINICAL HISTORY: r/o CVA. Headache, drowsiness, CVA symptomology COMPARISON: No comparisons TECHNIQUE: Multi-sequence, multiplanar MR imaging of the brain was performed with contrast. FINDINGS: No intracranial hemorrhage, hydrocephalus, or extra-axial fluid collection.Mild T2 FLAIR h yperintensity periventricular and deep white matter likely represents chronic microvascular ischemic changes. No edema or shift of midline structures. No intracranial mass. DWI is negative for acute CVA . The midline structures are normally formed. Mastoid air cells and paranasal sinuses are clear. Post-contrast images show no abnormal enhancement to suggest tumor or infection. IMPRESSION: Negative for acute CVA or other acute intracranial process. No pathologic post-contrast enhancement suspected.
--- NOTE | 2021-04-02 13:37 | TREADPHA ---
DX: CHEST PAIN Date of Study: 04/02/2021 Ht: 6' 0 " Wt: 290 lb 0 oz Consulting Physician: MAXIMUS MEDICATIONS: ASPIRIN, LIPITOR, LOVENOX, NOVOLIN-R, TOPROL XL, METFORMIN HISTORY: INSULIN DEPENDENT DIABETES MELLITUS, HIGH CHOLESTROL, CARDIAC FAMILY HISTORY. PHYSICIAL EXAMINATION: RESTING B.P.: 143/92 RESTING H.R.: 68 RESTING EKG: NORMAL PROTOCOL: LEXISCAN EXERCISE TIME: 3:30 B.P. AT [place] STRESS: 125/64 IMPRESSION: LEXISCAN STRESS TEST PERFORMED. CARDIOLITE INJECTED PER PROTOCOL. SEE NUCLEAR MEDICINE REPORT. NO SUPRAVENTRICULAR OR VENTRICULAR TACHYCARDIA NOTED.
--- NOTE | 2021-04-02 17:28 | P.PN ---
Date of Service: 04/02/21 Subjective: States he had a rough nights with this intermittent chest pain, had some intermittent chest pain during his stress test Reports diarrhea has improved Still had lightheadedness when ambulating this morning. Did not receive midodrine since he is n.p.o. for stress test ROS: 10 point ROS otherwise negative Physical Exam: Gen: NAD HEENT: normal conjunctiva, sclera anicteric CV: regular rate/rhythm, no edema Pulm: CTAB, no wheeze/rales Abd: soft, nontender, nondistended Integumentary: no rash/lesions Problem List: Chest pain, unclear etiology Syncope Orthostatic vital signs DM2, non-insulin dependent HTN GERD Insomnia Obesity CKD2 trop negative, echo okay Stress test to be done today per cardiology recommendations Chronic diarrhea, slight improvement, reports had 1 semiformed/soft bowel movement overnight Discussed possibility of trying Imodium Per patient's request - Neuro consulted, may benefit from MRI -MRI brain ordered continue home meds as appropriate Midodrine started on 04/01 see if helps with his orthostatic blood pressure/lightheadedness Dispo: anticipate dc home in ~1-2 days Time Spent Managing Pts Care (In Minutes): 35
[2021-04-02] MEDS: TRAZODONE 50 MG TABLET PO SCH (20:49)
[2021-04-03 04:19] LABS: Hematocrit 40.5 % (39.6-49.0); MPV 7.6 fL (7.6-11.3); RBC Red Blood Cell Count 5.15 M/uL (4.33-5.43)
[2021-04-03 04:34] LABS: Magnesium 2.4 mg/dL (1.8-2.4); Potassium 4.5 mmol/L (3.5-5.1)
[2021-04-03] MEDS: INSULIN -REGULAR HUMAN 50 UNIT/0.5 ML ML SQ SCH ×2 (06:24→11:22)
[2021-04-03] MEDS ORDERED: NA CHLORIDE 0.9% 500 ML IV ONE (07:03)
[2021-04-03] MEDS: ENOXAPARIN 40 MG/0.4 ML SQ SCH (09:00)
[2021-04-03] MEDS: PANTOPRAZOLE 40MG TABLET PO SCH (09:00)
[2021-04-03] MEDS: MONTELUKAST 10 MG TAB PO SCH (09:00)
[2021-04-03] MEDS: ASPIRIN 81 MG CHEWABLE TABLET PO SCH (09:00)
[2021-04-03] MEDS: MIDODRINE HCL 5 MG TABLET PO SCH ×2 (09:00→13:11)
[2021-04-03] MEDS: SERTRALINE HCL 100 MG TAB PO SCH (09:00)
[2021-04-03] MEDS: ATORVASTATIN 40 MG TAB PO SCH (09:00)
[2021-04-03 12:35] VITALS: BP 143/69; TEMP 97.9; O2SAT 96
--- NOTE | 2021-04-03 16:11 | P.DS ---
Admission Date: 03/31/21 Discharge Date: 04/03/21 Disposition: ROUTINE DISCHARGE Discharge Condition: GOOD Reason for Admission: Chest pain Consultations: Cardiology - Dr. Meredith Neurology - Dr. Christie Procedures: CXR (03/31): No acute cardiopulmonary disease Carotid artery ultrasound (03/31): Small amount of soft plaque is seen in both carotid bulbs, slightly greater on the left. No evidence of a hemodynamically significant stenosis. Echocardiogram (04/01): Normal LVEF: 55 to 60%. Normal wall motion. Trace tricuspid regurgitation. MRI brain (04/02): FINDINGS: No intracranial hemorrhage, hydrocephalus, or extra-axial fluid collection.Mild T2 FLAIR hyperintensity periventricular and deep white matter likely represents chronic microvascular ischemic changes. No edema or shift of midline structures. No intracranial mass. DWI is negative for acute CVA. The midline structures are normally formed. Mastoid air cells and paranasal sinuses are clear. Post-contrast images show no abnormal enhancement to suggest tumor or infection. IMPRESSION: Negative for acute CVA or other acute intracranial process. No pathologic post-contrast enhancement suspected. Nuclear cardiac stress test (04/02): FINDINGS: No stress induced ischemic defect is seen to suggest stress induced ischemia. Fixed defect is seen along the inferior wall on both rest and stress imaging most compatible with scar tissue from prior infarct. Due to technical issues, accurate volume measurements and ejection fraction could not be obtained. IMPRESSION: No stress induced ischemia. 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 Problem List: Chest pain Syncope Chronic diarrhea Orthostatic vital signs DM2, non-insulin dependent HTN GERD Insomnia Obesity CKD2 Brief History of Present Illness: 55-year-old male with a past medical history significant for HLD, hypertension, depression, GERD, insomnia, DM 2 who presents with complaint of chest pain that is located in the substernal chest area. Patient reported that chest pain has been ongoing for the past 1 week. Patient rated pain as 6/10 in severity and described pain as pressure in quality. Patient reported that chest pain radiates to left the chest wall area. Patient reports associated signs and symptoms of left upper arm numbness, shortness of breath with exertion and left fingers tingling\\numbness. Patient reported that 2 days ago he was at work when he became dizzy and eventually passed out. Patient reported that he regained consciousness shortly after. Patient also reported that this morning he had a near syncopal episode as after feeling dizzy. Patient denies any other signs or symptoms. Symptoms are aggravated or relieved by nothing. Patient decided to present to the hospital for medical evaluation. Of note, patient reported that he has been having diarrhea since October 2020. Patient reported that he followed up with a GI doctor and had a negative colonoscopy. Hospital Course: Chest paintroponins remain negative, cardiology consulted, patient had a history of a questionable prior stress test. Echocardiogram was normal. Stress test as noted above, cardiology felt this is not clinically significant and was otherwise normal. Recommended no further inpatient work-up. Patient to follow- up as an outpatient. Syncope/orthostatic vital signs -patient noted to have orthostatic vitals, lightheaded when getting up too quickly and ambulating. He had mild improvement with IV fluids, and even more improvement after initiation of midodrine. He is discharged home with prescription for midodrine. He may have some autonomic dysfunction secondary to his diabetes Chronic diarrheapatient had improvement of his diarrhea, only having 1 loose bowel movement a day while hospitalized, and without any intervention. He stated he had extensive work-up by GI, and had EGD and colonoscopy done. Advised follow-up with GI for further work-up. Recommended in the meantime he can try Imodium. Patient did not want Imodium while he was hospitalized. Patient also reported some memory loss issues, intermittent word finding difficulties/stuttering. He requested a neurology consult. MRI was obtained and within normal limits. The symptoms occurred after kari the COVID-19 virus. 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 He no longer had any chest pain/discomfort. He was comfortable with discharge home and to follow-up with his PCP and GI doctors. Vital Signs/Physical Exam: Physical Exam: Gen: NAD HEENT: normal conjunctiva, sclera anicteric CV: regular rate/rhythm, no edema Pulm: CTAB, no wheeze/rales Abd: soft, nontender, nondistended Integumentary: no rash/lesions Neuro: moves all extremities, 5/5 str equally bilaterally, CNII-XII grossly intact Temp Pulse Resp BP Pulse Ox 97.9 F 73 18 143/69 H 96 10/02/21 12:00 04/03/21 12:00 04/03/21 12:00 04/03/21 12:00 04/03/21 12:00 Laboratory Data at Discharge: WBC 8.60 K/uL (4.3-10.9) 04/03/21 03:46 Hgb 13.2 g/dL (13.6-17.9) L 04/03/21 03:46 Hct 40.5 % (39.6-49.0) 04/03/21 03:46 Plt Count 360 K/uL (152-406) 04/03/21 03:46 PT 12.3 SECONDS (9.5-12.5) 03/31/21 09:46 INR 1.07 03/31/21 09:46 Sodium 139 mmol/L (136-145) 04/03/21 03:46 Potassium 4.5 mmol/L (3.5-5.1) 04/03/21 03:46 BUN 14 mg/dL (7-18) 04/03/21 03:46 Creatinine 1.08 mg/dL (0.55-1.3) 04/03/21 03:46 Glucose 106 mg/dL (74-106) 04/03/21 03:46 Magnesium 2.4 mg/dL (1.8-2.4) 04/03/21 03:46 Total Bilirubin 0.3 mg/dL (0.2-1.0) 04/02/21 06:28 AST 23 U/L (15-37) 04/02/21 06:28 ALT 51 U/L (12-78) 04/02/21 06:28 Alkaline Phosphatase 77 U/L (45-117) 04/02/21 06:28 Troponin I < 0.02 ng/mL (0.0-0.045) 04/01/21 04:06 Home Medications: Atorvastatin Calcium [Lipitor] 40 mg PO BEDTIME 01/15/20 Metformin ER [Glucophage ER*] 1,000 mg PO BID 01/15/20 Pantoprazole [Protonix Tab*] 40 mg PO BID 01/15/20 Sertraline [Zoloft*] 150 mg PO DAILY 01/15/20 Trazodone HCl 100 mg PO BEDTIME 01/15/20 Cetirizine HCl [Zyrtec] 1 tab PO DAILY 03/31/21 Montelukast [Singulair*] 1 tab PO DAILY 03/31/21 Semaglutide [Ozempic] 50 units SQ EVERY 7TH DAY 03/31/21 Temazepam 1 tab PO BEDTIME 03/31/21 Testosterone Enanthate 2,000 mg SQ SEECOM 03/31/21 Aspirin [Aspirin EC 81 MG] 81 mg PO DAILY 30 Days #30 tablet. 04/03/21 Midodrine HCl [Proamatine*] 5 mg PO TID 30 Days #90 tab 04/03/21 New Medications: Aspirin [Aspirin EC 81 MG] 81 mg PO DAILY 30 Days #30 tablet. Midodrine HCl [Proamatine*] 5 mg PO TID 30 Days #90 tab Physician Discharge Instructions: Your chest pain was evaluated by cardiac enzymes (troponin), echocardiogram, and stress test - all normal. Follow up with Cardiology in the next few weeks. Your lightheadedness seems to be related to your orthostatic hypotension. When you get up to fast you get lightheaded due to your blood pressure dropping. You were started on Midodrine with improvement of your symptoms. You need to get up slowly and stay there for several seconds to a minute before continuing to walk. Your diarrhea improved as well, without any intervention. If this worsens, recommend imodium, as we discussed. Follow up with GI to continue your workup. You reported some intermittent memory issues and intermittent difficuly speaking /word finding difficulty. An MRI was obtained and normal. Neurology recommended a daily 81 mg aspirin. Diet: AHA Activity: Ad katheryn Followup: Ari Saba MD [Primary Care Provider] - Time spent managing pt's care (in minutes): 40
--- NOTE | 2021-04-04 15:40 | PN ---
Date of Progress Note: 04/01/2021 Mr. Banuelos had come in with multiple complaints including atypical chest pain. He has dyslipidemia, d iabetes, gastroesophageal reflux disease, obesity, and depression. I think he has orthostatic hypote nsion. He was started on midodrine. He continued to have atypical chest pain, was close to have a s tress test today on 04/01/2001, but the machine was broken. We will plan for the stress test on Mon , 04/02/2021 before proceeding with any heart catheterization. His previous stress test in [facility] on had showed artifact. He has allergy to iodine, he is a diabetic, and I prefer not to do a heart c atheterization on him unless the stress test is abnormal. His symptoms are very atypical. I will di scuss the case further with Dr. Woodson. MELANIA/ANGELA Voice ID: [id number] Report ID: [id number]
--- NOTE | 2021-04-04 16:46 | PN ---
Date of Progress Note: 04/02/2021 Mr. Banuelos had come in with atypical chest pain, orthostatic hypotension. He has diabetes. He has hy pertension, dyslipidemia, obesity, atypical chest pain. Started on midodrine for possible orthostati c hypotension and autonomic nervous system dysfunction. Echocardiogram on was perfectly n ormal. A stress test which was done on 04/02/2021 showed no evidence of ischemia. I am comfortable with Mr. Banuelos going home. If his symptoms persist with chest pain, then he will need a heart cathet erization. I will be happy to see him as an outpatient in the office. I would like to note that he did have a carotid Doppler that showed no significant hemodynamic stenosis. MELANIA/ANGELA Voice ID: [id number] Report ID: [id number]
[2021-04-07 00:52] LABS: Lactoferrin, Stool <30.0 mcg/mL (<30.0)
== END 2021-04-03 13:46 | disposition home or self-care (01) | DRG 313 ==
LOC: ER 09:34 → ERHOLD 12:24 → 4TH 14:55
PROVIDERS: ADMIT Hospitalist; ATTEND Hospitalist
DX: R07.9 Chest pain, unspecified (principal); R19.7 Diarrhea, unspecified; K21.9 Gastro-esophageal reflux disease without esophagitis; G47.00 Insomnia, unspecified; E66.9 Obesity, unspecified; Z68.39 Body mass index [BMI] 39.0-39.9, adult; I12.9 Hypertensive chronic kidney disease with stage 1 through stage 4 chronic kidney disease, or unspecified chronic kidney disease; E11.22 Type 2 diabetes mellitus with diabetic chronic kidney disease; N18.2 Chronic kidney disease, stage 2 (mild); I95.1 Orthostatic hypotension; F32.A Depression, unspecified; Z86.16 Personal history of COVID-19; Z20.822 Contact with and (suspected) exposure to COVID-19; Z23 Encounter for immunization
CPT/HCPCS: 36415; 70553; 71045; 78452; 80048; 80053; 80076; 81003; 81015; 82274; 82705; 82947; 83631; 83735; 83880; 84439; 84443; 84484; 85025; 85027; 85379; 85610; 87045; 87046; 87077; 87177; 87186; 87209; 89055; 93005; 93017; 93306; 93880; 96374; 96375; 97161; 99285; A9500; A9577; J1200; J1650; J2270; J2765; J2785; J7040; J7512; U0003

== ENCOUNTER 2021-06-02 08:29 | Emergency (ER) | payer OTHER ==
--- OUTSIDE RECORDS SUMMARY | 2021-06-02 08:34 | XMS REPORT | Continuity of Care Document ---
:1965 Author Organization [facility] t Address [address] [place] [address] Care Team Providers Name Role Phone UNKNOWN Primary Care Physician Unavailable Quinton Kohler DO Attending Clinician Hakeem NAVARRO Attending Clinician HAKEEM Attending Clinician Unavailable Only, Test Attending Clinician Unavailable Gemini Lee MD Attending Clinician Joyce NAVARRO Attending Clinician JOYCE Attending Clinician Unavailable DERIK Attending Clinician Unavailable OCTAVIO ALEXANDER Attending Clinician Unavailable Magdalena NAVARRO, K.H. Attending Clinician Doctor Unassigned, Name Attending Clinician Unavailable MAGDALENA, K.H. Attending Clinician Unavailable Wayne NAVARRO Attending Clinician Tawanna NAVARRO Attending Clinician TAWANNA Attending Clinician Unavailable [facility] Attending Clinician Unavailable Gemini Hull Attending Clinician Av BOWLING, T Attending Clinician Unavailable FRANCIA Attending Clinician Unavailable BRENDAN Attending Clinician Unavailable Brendan VENEGAS Attending Clinician Francia NAVARRO Attending Clinician MAGDALENA, K.H. Admitting Clinician Unavailable Tawanna NAVARRO Admitting Clinician TAWANNA Admitting Clinician Unavailable ANENE Admitting Clinician Unavailable Payers Payer Name Policy Type Policy Number Effective Date Expiration Date S ource [employer] [id number] 2019 00:00:00 Problems Condition Condition Condition Status Onset Resolution Last Treating Co mments Source Name Details Category Date Date Treatment Clinician Date Chest pain Chest pain Disease Active U nivers 11-05 ity of 00:00: [place] [facility] Morbid Morbid Disease Active Univers obesity obesity 11-05 it[place] of with body [place] mass index 00 Me dical of of Branch 40.0-49.9 40.0-49.9 Family Family Disease Active Univers history of history of 11-05 it y of early CAD early CAD 00:[place] Hyperlipid Hyperlipid Disease Active U nivers emia, emia, 10-09 ity of unspecifie unspecifie [place] Medical hyperlipid hyperlipid Br anch emia type emia type Anxiety Anxiety Disease Active Univers and and 10-09 ity of depression depression 00:00[place] [facility] [place] Gastroesop Gastroesop Disease Active U nivers hageal hageal 10-09 ity of reflux reflux 00:00: [place] disease, disease, 00 Medica l esophagiti esophagiti Br anch s presence s presence not not specified specified Controlled Controlled Disease Active U nivers type 2 type 2 ity of diabetes diabetes [place] mellitus mellitus Medica l without without Branch complicati complicati on, on, without without long-term long-term current current use of use of insulin insulin Allergies, Adverse Reactions, Alerts Allergy Allergy Status Severity Reaction(s) Onset Inactive Treating Comm ents Source Name Type Date Date Clinician IODINE DRUG Active Anaphylaxis Unive rs INGREDI 09-01 ity of 00:00: [place] [facility] Iodine Propensi Active Anaphylaxis Uni vers ty to 09-01 ity of adverse 00:00: [place] reaction 00 Medical s Branch Social History Social Habit Start Date Stop Date Quantity Comments Source Exposure to Not sure University SARS-CoV-2 [place] [facility] (event) Branch Alcohol intake 2019-11-06 2019-11-06 Current drinker Unive rsity of 00:00:00 00:00:00 of alcohol [place] [facility] (finding) Branch Tobacco use and 2019-11-06 2019-11-06 Never used Universit y of exposure 00:00:00 00:00:00 [facility] Alcohol Comment 2019-10-10 2019-10-10 rar Universit y of 00:00:00 00:00:00 [facility] Sex [birth year] Universit y of 00:00:00 00:00:00 [facility] Smoking Status Start Date Stop Date Source Never smoker [facility] Medications Ordered Filled Start Stop Current Ordering Indication Dosage Frequency Signature Comments Components Source Medication Medication Date Date Medication? Clinician (SIG) Name Name metoprolol 2019-0 Yes [id number] 50mg Take 1 Univers succinate 6-01 tablet by ity o f XL 50 mg 24 00:00: mouth 2 [place] hr tablet 00 (two) Medical times [place] daily. metoprolol 2019-0 Yes [id number] 50mg Take 1 Univers succinate 6-01 tablet by ity o f XL 50 mg 24 00:00: mouth 2 [place] hr tablet 00 (two) Medical times [place] daily. metoprolol 2019-0 Yes [id number] 50mg Take 1 Univers succinate 6-01 tablet by ity o f XL 50 mg 24 00:00: mouth 2 [place] hr tablet 00 (two) Medical times [place] daily. metoprolol 2019-0 Yes [id number] 25mg Take 1 Univers succinate 5-14 tablet by ity o f XL 25 mg 24 00:00: mouth [place] hr tablet 00 daily. [facility] Branch metoprolol 2019-0 Yes [id number] 25mg Take 1 Univers succinate 5-14 tablet by ity o f XL 25 mg 24 00:00: mouth [place] hr tablet 00 daily. [facility] Branch metoprolol 2019-0 Yes [id number] 25mg Take 1 Univers succinate 5-14 tablet by ity o f XL 25 mg 24 00:00: mouth [place] hr tablet 00 daily. [facility] Branch metoprolol 2020-0 Yes [id number] 25mg Take 1 Univers succinate 5-14 tablet by ity o f XL 25 mg 24 00:00: mouth [place] hr tablet 00 daily. [facility] Branch metoprolol 2020-0 Yes [id number] 25mg Take 1 Univers succinate 5-14 tablet by ity o f XL 25 mg 24 00:00: mouth [place] hr tablet 00 daily. [facility] Branch diphenhydrA 2019-0 2020- No 25mg Take 1 Uni vers MINE 25 mg 5-14 05-17 tablet by ity of tablet 00:00: 04:59 mouth [place] 00 :00 every 12 Medical (twelve) Branch hours for 3 doses. Start the day before the procedure and last dose the morning of procedure famotidine 2020-0 2020- No 20mg Take 1 Univ ers 20 mg 5-14 05-17 tablet by ity of tablet 00:00: 04:59 mouth [place] 00 :00 every 12 Medical (twelve) Branch hours for 3 doses. Start the day before the procedure and last dose the morning of procedure diphenhydrA 2020-0 2020- No 25mg Take 1 Uni vers MINE 25 mg 5-14 05-17 tablet by ity of tablet 00:00: 04:59 mouth [place] 00 :00 every 12 Medical (twelve) Branch hours for 3 doses. Start the day before the procedure and last dose the morning of procedure famotidine 2020-0 2020- No 20mg Take 1 Univ ers 20 mg 5-14 05-17 tablet by ity of tablet 00:00: 04:59 mouth [place] 00 :00 every 12 Medical (twelve) Branch hours for 3 doses. Start the day before the procedure and last dose the morning of procedure diphenhydrA 2020-0 2020- No 25mg Take 1 Uni vers MINE 25 mg 5-14 05-17 tablet by ity of tablet 00:00: 04:59 mouth [place] 00 :00 every 12 Medical (twelve) Branch hours for 3 doses. Start the day before the procedure and last dose the morning of procedure famotidine 2020-0 2020- No 20mg Take 1 Univ ers 20 mg 5-14 05-17 tablet by ity of tablet 00:00: 04:59 mouth [place] 00 :00 every 12 Medical (twelve) Branch hours for 3 doses. Start the day before the procedure and last dose the morning of procedure predniSONE 2020-0 2020- No 40mg Take 2 Univ ers 20 mg 5-14 05-16 tablets by ity of tablet 00:00: 04:59 mouth [place] 00 :00 every 6 Medical (six) Branch hours for 4 doses. Start the day before the procedure and last dose the morning of procedure predniSONE 2020-0 2020- No 40mg Take 2 Univ ers 20 mg 5-14 05-16 tablets by ity of tablet 00:00: 04:59 mouth [place] 00 :00 every 6 Medical (six) Branch hours for 4 doses. Start the day before the procedure and last dose the morning of procedure predniSONE 2020-0 2020- No 40mg Take 2 Univ ers 20 mg 5-14 -16 tablets by ity of tablet 00:00: 04:59 mouth [place] 00 :00 every 6 Medical (six) Branch hours for 4 doses. Start the day before the procedure and last dose the morning of procedure tc 2020-0 2020- No 36mCi 36 Univers 99m-tetrofo 11-11 millicurie i ty of [facility] 13:45: 13:35 , [place] ([facility]) 00 :00 Intravenou Medi patricia injection s, ONCE, 1 Bran ch 36 dose, Tue millicurie 11/12/19 at 0845, Routine tc 2020-0 2020- No 35.1mCi 35.1 Univers 99m-tetrofo 11-10 [facility]ie [facility] 13:30: 14:00 , [place] ([facility]) 00 :00 Intravenou Medi patricia injection s, ONCE, 1 Bran ch 35.1 dose, Mon millicurie 11/11/19 at 0830, Routine aspirin 81 2020-0 2020- No [id number] 81mg Take 1 Univers mg chewable 5-08 08-07 tablet by it y of tablet 00:00: 04:59 mouth [place] 00 :00 daily with Medical breakfast Branch for 90 days. aspirin 81 2020-0 2020- No [id number] 81mg Take 1 Univers mg chewable 5-08 08-07 tablet by it y of tablet 00:00: 04:59 mouth [place] 00 :00 daily with Medical breakfast Branch for 90 days. aspirin 81 2020-0 2020- No [id number] 81mg Take 1 Univers mg chewable 5-08 08-07 tablet by it y of tablet 00:00: 04:59 mouth [place] 00 :00 daily with Medical breakfast Branch for 90 days. aspirin 81 2020-0 2020- No [id number] 81mg Take 1 Univers mg chewable 5-08 08-07 tablet by it y of tablet 00:00: 04:59 mouth [place] 00 :00 daily with Medical breakfast Branch for 90 days. aspirin 81 2020-0 2020- No [id number] 81mg Take 1 Univers mg chewable 5-08 08-07 tablet by it y of tablet 00:00: 04:59 mouth [place] 00 :00 daily with Medical breakfast Branch for 90 days. aspirin 81 2020-0 2020- No [id number] 81mg Take 1 Univers mg chewable 5-08 08-07 tablet by it y of tablet 00:00: 04:59 mouth [place] 00 :00 daily with Medical breakfast Branch for 90 days. aspirin 81 2020-0 2020- No [id number] 81mg Take 1 Univers mg chewable 5-08 08-07 tablet by it y of tablet 00:00: 04:59 mouth [place] 00 :00 daily with Medical breakfast Branch for 90 days. aspirin 81 2020-0 2020- No [id number] 81mg Take 1 Univers mg chewable 5-08 08-07 tablet by it y of tablet 00:00: 04:59 mouth [place] 00 :00 daily with Medical breakfast Branch for 90 days. aspirin 81 2020-0 2020- No [id number] 81mg Take 1 Univers mg chewable 5-08 08-07 tablet by it y of tablet 00:00: 04:59 mouth [place] 00 :00 daily with Medical breakfast Branch for 90 days. aspirin 81 2020-0 2020- No [id number] 81mg Take 1 Univers mg chewable 5-08 08-07 tablet by it y of tablet 00:00: 04:59 mouth [place] 00 :00 daily with Medical breakfast Branch for 90 days. aspirin 81 2020-0 2020- No [id number] 81mg Take 1 Univers mg chewable 5-08 08-07 tablet by it y of tablet 00:00: 04:59 mouth [place] 00 :00 daily with Medical breakfast Branch for 90 days. aspirin 81 2020-0 2020- No [id number] 81mg Take 1 Univers mg chewable 5-08 08-07 tablet by it y of tablet 00:00: 04:59 mouth [place] 00 :00 daily with Medical [facility] Branch for 90 days. lovastatin 2020-0 Yes 40mg Take 40 mg U nivers 40 mg 5-07 by mouth ity of tablet 20:42: at [place] [address] bedtime. Medical Branch cetirizine 2020-0 Yes 10mg Take 10 mg U nivers 10 mg 5-07 by mouth ity of tablet 20:42: daily. [place] [address] Medical Branch metFORMIN 2020-0 Yes 500mg Take 500 Uni vers 500 mg 5-07 mg by ity of tablet 20:42: mouth 2 [place] [address] (two) Medical times Branch daily with meals. omeprazole 2020-0 Yes 20mg Take 20 mg U nivers 20 mg 5-07 by mouth 2 ity of capsule 20:42: (two) [place] [address] times Medical daily. Branch testosteron 2020-0 Yes 1mL 1 mL. Unive rs e cypionate 5-07 ity of 200 mg/mL 20:42: [place] [address] Medical Branch lovastatin 2020-0 Yes 40mg Take 40 mg U nivers 40 mg 5-07 by mouth ity of tablet 20:42: at [place] [address] bedtime. Medical Branch cetirizine 2020-0 Yes 10mg Take 10 mg U nivers 10 mg 5-07 by mouth ity of tablet 20:42: daily. [address] Branch metFORMIN 2020-0 Yes 500mg Take 500 Uni vers 500 mg 5-07 mg by ity of tablet 20:42: mouth 2 [place] [address] (two) [facility] daily with meals. omeprazole 2020-0 Yes 20mg Take 20 mg U nivers 20 mg 5-07 by mouth 2 ity of capsule 20:42: (two) [place] [address] times Medical daily. Branch testosteron 2020-0 Yes 1mL 1 mL. Unive rs e cypionate 5-07 ity of 200 mg/mL 20:42: [place] [address] Medical Branch lovastatin 2020-0 Yes 40mg Take 40 mg U nivers 40 mg 5-07 by mouth ity of tablet 20:42: at [place] [address] bedtime. Medical Branch cetirizine 2020-0 Yes 10mg Take 10 mg U nivers 10 mg 5-07 by mouth ity of tablet 20:42: daily. [address] metFORMIN 2020-0 Yes 500mg Take 500 Uni vers 500 mg 5-07 mg by ity of tablet 20:42: mouth 2 [place] [address] (two) [facility] daily with meals. omeprazole 2020-0 Yes 20mg Take 20 mg U nivers 20 mg 5-07 by mouth 2 ity of capsule 20:42: (two) [place] [address] times Medical daily. Branch testosteron 2020-0 Yes 1mL 1 mL. Unive rs e cypionate 5-07 ity of 200 mg/mL 20:42: [address] Branch lovastatin 2020-0 Yes 40mg Take 40 mg U nivers 40 mg 5-07 by mouth ity of tablet 20:42: at [place] [address] bedtime. Medical Branch cetirizine 2020-0 Yes 10mg Take 10 mg U nivers 10 mg 5-07 by mouth ity of tablet 20:42: daily. [address] metFORMIN 2020-0 Yes 500mg Take 500 Uni vers 500 mg 5-07 mg by ity of tablet 20:42: mouth 2 [place] [address] ([facility]) [facility] daily with meals. omeprazole 2020-0 Yes 20mg Take 20 mg U nivers 20 mg 5-07 by mouth 2 ity of capsule 20:42: (two) [place] [address] times Medical daily. Branch testosteron 2020-0 Yes 1mL 1 mL. Unive rs e cypionate 5-07 ity of 200 mg/mL 20:42: [address] lovastatin 2020-0 Yes 40mg Take 40 mg U nivers 40 mg 5-07 by mouth ity of tablet 20:42: at [place] [address] bedtime. Medical Branch cetirizine 2020-0 Yes 10mg Take 10 mg U nivers 10 mg 5-07 by mouth ity of tablet 20:42: daily. [address] metFORMIN 2020-0 Yes 500mg Take 500 Uni vers 500 mg 5-07 mg by ity of tablet 20:42: mouth 2 [place] [address] ([facility]) [facility] daily with meals. omeprazole 2020-0 Yes 20mg Take 20 mg U nivers 20 mg 5-07 by mouth 2 ity of capsule 20:42: (two) [place] [address] times [facility] daily. Branch testosteron 2020-0 Yes 1mL 1 mL. Unive rs e cypionate 5-07 ity of 200 mg/mL 20:42: [address] lovastatin 2020-0 Yes 40mg Take 40 mg U nivers 40 mg 5-07 by mouth ity of tablet 20:42: at [place] [address] bedtime. Medical Branch cetirizine 2020-0 Yes 10mg Take 10 mg U nivers 10 mg 5-07 by mouth ity of tablet 20:42: daily. [address] metFORMIN 2020-0 Yes 500mg Take 500 Uni vers 500 mg 5-07 mg by ity of tablet 20:42: mouth 2 [place] [address] ([facility]) [facility] daily with meals. omeprazole 2020-0 Yes 20mg Take 20 mg U nivers 20 mg 5-07 by mouth 2 ity of capsule 20:42: (two) [place] [address] times Medical daily. Branch testosteron 2020-0 Yes 1mL 1 mL. Unive rs e cypionate 5-07 ity of 200 mg/mL 20:42: [place] Kit 55 Medical Branch lovastatin 2020-0 Yes 40mg Take 40 mg U nivers 40 mg 5-07 by mouth ity of tablet 20:42: at [place] [address] bedtime. Medical Branch cetirizine 2020-0 Yes 10mg Take 10 mg U nivers 10 mg 5-07 by mouth ity of tablet 20:42: daily. [place] [address] Medical Branch metFORMIN 2020-0 Yes 500mg Take 500 Uni vers 500 mg 5-07 mg by ity of tablet 20:42: mouth 2 [place] [address] (two) Medical times [place] daily with meals. omeprazole 2020-0 Yes 20mg Take 20 mg U nivers 20 mg 5-07 by mouth 2 ity of capsule 20:42: (two) [place] [address] times [facility] daily. Branch testosteron 2020-0 Yes 1mL 1 mL. Unive rs e cypionate 5-07 ity of 200 mg/mL 20:42: [address] Branch lovastatin 2020-0 Yes 40mg Take 40 mg U nivers 40 mg 5-07 by mouth ity of tablet 20:42: at [place] [address] bedtime. Medical Branch cetirizine 2020-0 Yes 10mg Take 10 mg U nivers 10 mg 5-07 by mouth ity of tablet 20:42: daily. [address] Branch metFORMIN 2020-0 Yes 500mg Take 500 Uni vers 500 mg 5-07 mg by ity of tablet 20:42: mouth 2 [place] [address] ([facility]) [facility] times [place] daily with meals. omeprazole 2020-0 Yes 20mg Take 20 mg U nivers 20 mg 5-07 by mouth 2 ity of capsule 20:42: (two) [place] [address] times [facility] daily. Branch testosteron 2020-0 Yes 1mL 1 mL. Unive rs e cypionate 5-07 ity of 200 mg/mL 20:42: [place] [address] Medical Branch lovastatin 2020-0 Yes 40mg Take 40 mg U nivers 40 mg 5-07 by mouth ity of tablet 20:42: at [place] [address] bedtime. Medical Branch cetirizine 2020-0 Yes 10mg Take 10 mg U nivers 10 mg 5-07 by mouth ity of tablet 20:42: daily. [address] metFORMIN 2020-0 Yes 500mg Take 500 Uni vers 500 mg 5-07 mg by ity of tablet 20:42: mouth 2 [place] [address] (two) Medical times [place] daily with meals. omeprazole 2020-0 Yes 20mg Take 20 mg U nivers 20 mg 5-07 by mouth 2 ity of capsule 20:42: (two) [place] [address] times Medical daily. Branch testosteron 2020-0 Yes 1mL 1 mL. Unive rs e cypionate 5-07 ity of 200 mg/mL 20:42: [place] [address] Medical Branch lovastatin 2020-0 Yes 40mg Take 40 mg U nivers 40 mg 5-07 by mouth ity of tablet 20:42: at [place] [address] bedtime. Medical Branch cetirizine 2020-0 Yes 10mg Take 10 mg U nivers 10 mg 5-07 by mouth ity of tablet 20:42: daily. [place] [address] Medical Branch metFORMIN 2020-0 Yes 500mg Take 500 Uni vers 500 mg 5-07 mg by ity of tablet 20:42: mouth 2 [place] [address] (two) Medical times [place] daily with meals. omeprazole 2020-0 Yes 20mg Take 20 mg U nivers 20 mg 5-07 by mouth 2 ity of capsule 20:42: (two) [place] [address] times Medical daily. Branch lovastatin 2020-0 Yes 40mg Take 40 mg U nivers 40 mg 5-07 by mouth ity of tablet 20:42: at [place] [address] bedtime. Medical Branch cetirizine 2020-0 Yes 10mg Take 10 mg U nivers 10 mg 5-07 by mouth ity of tablet 20:42: daily. [place] [address] Medical Branch metFORMIN 2020-0 Yes 500mg Take 500 Uni vers 500 mg 5-07 mg by ity of tablet 20:42: mouth 2 [place] [address] (two) Medical times [place] daily with meals. omeprazole 2020-0 Yes 20mg Take 20 mg U nivers 20 mg 5-07 by mouth 2 ity of capsule 20:42: (two) [place] [address] times Medical daily. Branch testosteron 2020-0 Yes 1mL 1 mL. Unive rs e cypionate 5-07 ity of 200 mg/mL 20:42: [place] [address] Medical Branch lovastatin 2020-0 Yes 40mg Take 40 mg U nivers 40 mg 5-07 by mouth ity of tablet 20:42: at [place] [address] bedtime. Medical Branch cetirizine 2020-0 Yes 10mg Take 10 mg U nivers 10 mg 5-07 by mouth ity of tablet 20:42: daily. [place] [address] Medical Branch metFORMIN 2020-0 Yes 500mg Take 500 Uni vers 500 mg 5-07 mg by ity of tablet 20:42: mouth 2 [place] [address] (two) [facility] daily with meals. omeprazole 2020-0 Yes 20mg Take 20 mg U nivers 20 mg 5-07 by mouth 2 ity of capsule 20:42: (two) [place] [address] times Medical daily. Branch testosteron 2020-0 Yes 1mL 1 mL. Unive rs e cypionate 5-07 ity of 200 mg/mL 20:42: [address] Branch lovastatin 2020-0 Yes 40mg Take 40 mg U nivers 40 mg 5-07 by mouth ity of tablet 20:42: at [place] [address] bedtime. Medical Branch cetirizine 2020-0 Yes 10mg Take 10 mg U nivers 10 mg 5-07 by mouth ity of tablet 20:42: daily. [address] metFORMIN 2020-0 Yes 500mg Take 500 Uni vers 500 mg 5-07 mg by ity of tablet 20:42: mouth 2 [place] [address] (two) [facility] daily with meals. omeprazole 2020-0 Yes 20mg Take 20 mg U nivers 20 mg 5-07 by mouth 2 ity of capsule 20:42: (two) [place] [address] times Medical daily. Branch testosteron 2020-0 Yes 1mL 1 mL. Unive rs e cypionate 5-07 ity of 200 mg/mL 20:42: [address] Branch lovastatin 2020-0 Yes 40mg Take 40 mg U nivers 40 mg 5-07 by mouth ity of tablet 20:42: at [place] [address] bedtime. Medical Branch cetirizine 2020-0 Yes 10mg Take 10 mg U nivers 10 mg 5-07 by mouth ity of tablet 20:42: daily. [address] metFORMIN 2020-0 Yes 500mg Take 500 Uni vers 500 mg 5-07 mg by ity of tablet 20:42: mouth 2 [place] [address] (two) [facility] daily with meals. omeprazole 2020-0 Yes 20mg Take 20 mg U nivers 20 mg 5-07 by mouth 2 ity of capsule 20:42: (two) [place] [address] times Medical daily. Branch testosteron 2020-0 Yes 1mL 1 mL. Unive rs e cypionate 5-07 ity of 200 mg/mL 20:42: [address] Branch enoxaparin 2020-0 Yes 40mg 40 mg, Unive rs (LOVENOX) 11-06 Subcutaneo ity of injection 14:00: [place], DAILY, [place] mg 00 First dose Medical on Mon11/07/19 at 0900, Until Discontinu ed, Routine SERTraline 2020-0 Yes 100mg 100 mg, Uni vers (ZOLOFT) 5-07 Oral, QHS, ity o f tablet 100 02:00: First dose [place] mg 00 on Mon11/06/19 at Branch 2100, Until Discontinu ed, Routine rosuvastati 2020-0 Yes 20mg 20 mg, Univ ers n (CRESTOR) 5-07 Oral, QHS, it y of tablet 20 02:00: First dose [place] mg 00 on Mon11/06/19 at Branch 2100, Until Discontinu ed ALPRAZolam 2019-0 2020- No .5mg 0.5 mg, Uni vers (XANAX) 11-06 05-07 Oral, ity of tablet 0.5 01:15: 01:10 ONCE, 1 [place] mg 00 :00 dose, Mon11/06/19 at Branch 2015, Routine hydralAZINE 2020-0 Yes 10mg 10 mg, Univ ers (APRESOLINE - Intravenou it y of ) injection 00:17: s, Q8HPRN, [place] 10 mg [address] [facility] 11/06/19 Branch at 1917, Until Discontinu ed, Routine, Hypertensi on acetaminoph 2020-0 Yes 650mg 650 mg, Un roland en 5-06 Oral, ity of (TYLENOL) 21:51: Q6HPRN, [place] tablet 650 14 Starting Medic [address] [facility] 11/06/19 Branch at 1651, Until Discontinu ed, Routine, Pain (scale 1-3), Pain (scale 4-6) aspirin 2020-0 Yes 81mg 81 mg, Univers chewable -06 Oral, QAM ity of tablet 81 21:30: WITH [place] mg 00 BREAKFAST, Medical First dose Branch on Mon11/06/19 at 1630, Until Discontinu ed, Routine omeprazole 2020-0 Yes 20mg 20 mg, Unive rs (PRILOSEC) 5-06 Oral, BID, ity of capsule 20 21:30: First dose [place] mg 00 on Mon Medical 11/06/19 at Branch 1630, Until Discontinu ed, Routine docusate 2020-0 Yes 100mg 100 mg, Unive rs (COLACE) 5-06 Oral, BID, ity o f capsule 100 21:30: First dose [place] mg 00 on Mon Medical 11/06/19 at Branch 1630, Until Discontinu ed, Routine zolpidem 2020-0 Yes 10mg 10 mg, Univers (AMBIEN) 5-06 Oral, ity of tablet 10 21:17: QHSPRN, [place] mg 49 Starting Medical 11/06/19 Branch at 1617, Until Discontinu ed, Routine, Insomnia ondansetron 2020-0 Yes 4mg 4 mg, Slow Univers (ZOFRAN 5-06 IV Push, ity of (PF)) 21:17: Q6HPRN, [place] injection 4 03 Starting Medi patricia mg Mon11/06/19 Branch at 1617, Until Discontinu ed, Routine, Nausea and Vomiting (N/V) insulin 2020-0 Yes Subcutaneo Univ ers aspart 5-06 us, TID ity of RAPID 17:00: MEALS+HS, [place] (NOVOLOG 00 First dose Medic al U-100 on Mon Branch INSULIN 11/06/19 at ASPART) 1200, injection Until Discontinu ed, Routine testosteron 2020-0 Yes 1mL 1 mL. Unive rs e cypionate 5-06 ity of 200 mg/mL 13:13: [place] Kit 06 [facility] Branch lovastatin 2020-0 Yes 40mg Take 40 mg U nivers 40 mg 5-06 by mouth ity of tablet 13:12: at [place] [address] bedtime. Medical Branch cetirizine 2020-0 Yes 10mg Take 10 mg U nivers 10 mg 5-06 by mouth ity of tablet 13:12: daily. [address] metFORMIN 2020-0 Yes 500mg Take 500 Uni vers 500 mg 5-06 mg by ity of tablet 13:12: mouth 2 [place] 50 (two) Medical times [place] daily with meals. omeprazole 2020-0 Yes 20mg Take 20 mg U nivers 20 mg 5-06 by mouth 2 ity of capsule 13:12: (two) [place] [address] times [facility] daily. Branch SERTraline 2020-0 2020- No 50mg Take 50 mg Univers (ZOLOFT) 50 4-09 04-09 by mouth ity of mg tablet 14:46: 00:00 daily. [place] 35 :00 Medical Branch lisinopril 2020-0 2020- No 5mg Take 5 mg U nivers 5 mg tablet 10-09 by mouth ity of 14:43: 00:00 daily. [place] 16 :00 Medical Branch SERTraline 2020-0 Yes [id number] 100mg Take 1 Univers 100 mg 4-09 tablet by ity of tablet 00:00: mouth [place] 00 daily. Medical Branch zolpidem 10 2019-0 Yes [id number] 10mg Take 1 Univers mg tablet 4-09 tablet by ity o f 00:00: mouth at [place] 00 bedtime as Medical needed for Branch Insomnia. SERTraline 2019-0 Yes [id number] 100mg Take 1 Univers 100 mg 4-09 tablet by ity of tablet 00:00: mouth [place] 00 daily. Medical Branch zolpidem 10 2019-0 Yes [id number] 10mg Take 1 Univers mg tablet 4-09 tablet by ity o f 00:00: mouth at [place] 00 bedtime as Medical needed for Branch Insomnia. SERTraline 2019-0 Yes [id number] 100mg Take 1 Univers 100 mg 4-09 tablet by ity of tablet 00:00: mouth [place] 00 daily. Medical Branch zolpidem 10 2019-0 Yes [id number] 10mg Take 1 Univers mg tablet 4-09 tablet by ity o f 00:00: mouth at [place] 00 bedtime as Medical needed for Branch Insomnia. SERTraline 2020-0 Yes [id number] 100mg Take 1 Univers 100 mg 4-09 tablet by ity of tablet 00:00: mouth [place] 00 daily. Medical Branch zolpidem 10 2019-0 Yes [id number] 10mg Take 1 Univers mg tablet 4-09 tablet by ity o f 00:00: mouth at [place] 00 bedtime as Medical needed for Branch Insomnia. SERTraline 2020-0 Yes [id number] 100mg Take 1 Univers 100 mg 4-09 tablet by ity of tablet 00:00: mouth [place] 00 daily. Medical Branch zolpidem 10 2020-0 Yes [id number] 10mg Take 1 Univers mg tablet 4-09 tablet by ity o f 00:00: mouth at [place] 00 bedtime as Medical needed for Branch Insomnia. SERTraline 2020-0 Yes [id number] 100mg Take 1 Univers 100 mg 4-09 tablet by ity of tablet 00:00: mouth [place] 00 daily. Medical Branch zolpidem 10 2020-0 Yes [id number] 10mg Take 1 Univers mg tablet 4-09 tablet by ity o f 00:00: mouth at [place] 00 bedtime as Medical needed for Branch Insomnia. SERTraline 2020-0 Yes [id number] 100mg Take 1 Univers 100 mg 4-09 tablet by ity of tablet 00:00: mouth [place] 00 daily. Medical Branch zolpidem 10 2020-0 Yes [id number] 10mg Take 1 Univers mg tablet 4-09 tablet by ity o f 00:00: mouth at [place] 00 bedtime as Medical needed for Branch Insomnia. SERTraline 2020-0 Yes [id number] 100mg Take 1 Univers 100 mg 4-09 tablet by ity of tablet 00:00: mouth [place] 00 daily. Medical Branch zolpidem 10 2020-0 Yes [id number] 10mg Take 1 Univers mg tablet 4-09 tablet by ity o f 00:00: mouth at [place] 00 bedtime as Medical needed for Branch Insomnia. SERTraline 2020-0 Yes [id number] 100mg Take 1 Univers 100 mg 4-09 tablet by ity of tablet 00:00: mouth [place] 00 daily. Medical Branch zolpidem 10 2020-0 Yes [id number] 10mg Take 1 Univers mg tablet 4-09 tablet by ity o f 00:00: mouth at [place] 00 bedtime as Medical needed for Branch Insomnia. SERTraline 2020-0 Yes [id number] 100mg Take 1 Univers 100 mg 4-09 tablet by ity of tablet 00:00: mouth [place] 00 daily. Medical Branch zolpidem 10 2020-0 Yes [id number] 10mg Take 1 Univers mg tablet 4-09 tablet by ity o f 00:00: mouth at [place] 00 bedtime as Medical needed for Branch Insomnia. SERTraline 2020-0 Yes [id number] 100mg Take 1 Univers 100 mg 4-09 tablet by ity of tablet 00:00: mouth [place] 00 daily. Medical Branch zolpidem 10 2020-0 Yes [id number] 10mg Take 1 Univers mg tablet 4-09 tablet by ity o f 00:00: mouth at [place] 00 bedtime as Medical needed for Branch Insomnia. SERTraline 2020-0 Yes [id number] 100mg Take 1 Univers 100 mg 4-09 tablet by ity of tablet 00:00: mouth [place] 00 daily. Medical Branch zolpidem 10 2020-0 Yes [id number] 10mg Take 1 Univers mg tablet 4-09 tablet by ity o f 00:00: mouth at [place] 00 bedtime as Medical needed for Branch Insomnia. SERTraline 2020-0 Yes [id number] 100mg Take 1 Univers 100 mg 4-09 tablet by ity of tablet 00:00: mouth [place] 00 daily. Medical Branch zolpidem 10 2020-0 Yes [id number] 10mg Take 1 Univers mg tablet 4-09 tablet by ity o f 00:00: mouth at [place] 00 bedtime as Medical needed for Branch Insomnia. SERTraline 2020-0 Yes [id number] 100mg Take 1 Univers 100 mg 4-09 tablet by ity of tablet 00:00: mouth [place] 00 daily. Medical Branch zolpidem 10 2020-0 Yes [id number] 10mg Take 1 Univers mg tablet 4-09 tablet by ity o f 00:00: mouth at [place] 00 bedtime as Medical needed for Branch Insomnia. SERTraline 2020-0 Yes [id number] 100mg Take 1 Univers 100 mg 4-09 tablet by ity of tablet 00:00: mouth [place] 00 daily. Medical Branch zolpidem 10 2020-0 Yes [id number] 10mg Take 1 Univers mg tablet 4-09 tablet by ity o f 00:00: mouth at [place] 00 bedtime as Medical needed for Branch Insomnia. SERTraline 2020-0 Yes [id number] 100mg Take 1 Univers 100 mg 4-09 tablet by ity of tablet 00:00: mouth [place] 00 daily. Medical Branch zolpidem 10 2020-0 Yes [id number] 10mg Take 1 Univers mg tablet 4-09 tablet by ity o f 00:00: mouth at [place] 00 bedtime as Medical needed for Branch Insomnia. SERTraline 2020-0 Yes [id number] 100mg Take 1 Univers 100 mg 4-09 tablet by ity of tablet 00:00: mouth [place] 00 daily. Medical Branch zolpidem 10 2020-0 Yes [id number] 10mg Take 1 Univers mg tablet 4-09 tablet by ity o f 00:00: mouth at [place] 00 bedtime as Medical needed for Branch Insomnia. omeprazole 2020-0 Yes 20mg Take 20 mg U nivers 20 mg 3-23 by mouth 2 ity of capsule 18:16: (two) [place] [address] times Medical daily. Branch lovastatin 2020-0 Yes 40mg Take 40 mg U nivers 40 mg 3-23 by mouth ity of tablet 18:16: at [place] [address] bedtime. Medical Branch cetirizine 2020-0 Yes 10mg Take 10 mg U nivers 10 mg 3-23 by mouth ity of tablet 18:16: daily. [place] [address] Medical Branch metFORMIN 2020-0 Yes 500mg Take 500 Uni vers 500 mg 3-23 mg by ity of tablet 18:16: mouth 2 [place] [address] (two) [facility] daily with meals. omeprazole 2020-0 Yes 20mg Take 20 mg U nivers 20 mg 3-23 by mouth 2 ity of capsule 18:16: (two) [place] [address] times Medical daily. Branch SERTraline 2020-0 Yes 50mg Take 50 mg U nivers (ZOLOFT) 50 3-23 by mouth ity of mg tablet 18:16: daily. [place] [address] Medical Branch lovastatin 2020-0 Yes 40mg Take 40 mg U nivers 40 mg 3-23 by mouth ity of tablet 18:16: at [place] [address] bedtime. Medical Branch cetirizine 2020-0 Yes 10mg Take 10 mg U nivers 10 mg 3-23 by mouth ity of tablet 18:16: daily. [place] [address] Medical Branch metFORMIN 2020-0 Yes 500mg Take 500 Uni vers 500 mg 3-23 mg by ity of tablet 18:16: mouth 2 [place] [address] (two) [facility] daily with meals. lisinopril 2020-0 Yes 5mg Take 5 mg [place] 5 mg tablet 3-23 by mouth ity of 18:16: daily. [place] [address] Medical Branch omeprazole 2020-0 Yes 20mg Take 20 mg U nivers 20 mg 3-23 by mouth 2 ity of capsule 18:16: (two) [place] [address] times Medical daily. Branch SERTraline 2020-0 Yes 50mg Take 50 mg U nivers (ZOLOFT) 50 3-23 by mouth ity of mg tablet 18:16: daily. [place] [address] Medical Branch lovastatin 2020-0 Yes 40mg Take 40 mg U nivers 40 mg 3-23 by mouth ity of tablet 18:16: at [place] [address] bedtime. Medical Branch cetirizine 2020-0 Yes 10mg Take 10 mg U nivers 10 mg 3-23 by mouth ity of tablet 18:16: daily. [place] [address] Medical Branch metFORMIN 2020-0 Yes 500mg Take 500 Uni vers 500 mg 3-23 mg by ity of tablet 18:16: mouth 2 [place] [address] (two) Medical times [place] daily with meals. lisinopril 2020-0 Yes 5mg Take 5 mg [place] 5 mg tablet 3-23 by mouth ity of 18:16: daily. [place] [address] Medical Branch omeprazole 2020-0 Yes 20mg Take 20 mg U nivers 20 mg 3-23 by mouth 2 ity of capsule 18:16: (two) [address] Medical daily. Branch SERTraline 2020-0 Yes 50mg Take 50 mg U nivers (ZOLOFT) 50 3-23 by mouth ity of mg tablet 18:16: daily. [address] Branch lovastatin 2020-0 Yes 40mg Take 40 mg U nivers 40 mg 3-23 by mouth ity of tablet 18:16: at [place] [address] bedtime. Medical Branch cetirizine 2020-0 Yes 10mg Take 10 mg U nivers 10 mg 3-23 by mouth ity of tablet 18:16: daily. [address] Branch metFORMIN 2020-0 Yes 500mg Take 500 Uni vers 500 mg 3-23 mg by ity of tablet 18:16: mouth 2 [place] [address] (two) Medical times [place] daily with meals. lisinopril 2020-0 Yes 5mg Take 5 mg [place] 5 mg tablet 3-23 by mouth ity of 18:16: daily. [place] [address] Medical Branch omeprazole 2020-0 Yes 20mg Take 20 mg U nivers 20 mg 3-23 by mouth 2 ity of capsule 18:16: (two) [place] [address] times Medical daily. Branch SERTraline 2020-0 Yes 50mg Take 50 mg U nivers (ZOLOFT) 50 3-23 by mouth ity of mg tablet 18:16: daily. [place] [address] Medical Branch lovastatin 2020-0 Yes 40mg Take 40 mg U nivers 40 mg 3-23 by mouth ity of tablet 18:16: at [place] [address] bedtime. Medical Branch cetirizine 2020-0 Yes 10mg Take 10 mg U nivers 10 mg 3-23 by mouth ity of tablet 18:16: daily. [place] [address] Medical Branch metFORMIN 2020-0 Yes 500mg Take 500 Uni vers 500 mg 3-23 mg by ity of tablet 18:16: mouth 2 [place] [address] (two) Medical times [place] daily with meals. lisinopril 2019-0 Yes 5mg Take 5 mg [place] 5 mg tablet 3-23 by mouth ity of 18:16: daily. [place] [address] Medical Branch omeprazole 2019-0 Yes 20mg Take 20 mg U nivers 20 mg 3-23 by mouth 2 ity of capsule 18:16: (two) [place] [address] times Medical daily. Branch lovastatin 2019-0 Yes 40mg Take 40 mg U nivers 40 mg 3-23 by mouth ity of tablet 18:16: at [place] [address] bedtime. Medical Branch cetirizine 2019-0 Yes 10mg Take 10 mg U nivers 10 mg 3-23 by mouth ity of tablet 18:16: daily. [address] Branch metFORMIN 2019-0 Yes 500mg Take 500 Uni vers 500 mg 3-23 mg by ity of tablet 18:16: mouth 2 [place] [address] (two) Medical times [place] daily with meals. PROZAC 20 2019-0 2020- No 1 tab PO Uni vers MG ORAL CAP 3-22 09- BID ity of 18:16: 00:00 [place] 46 :00 Medical Branch PROZAC 20 2019-0 2020- No 1 tab PO Uni vers MG ORAL CAP 3-09-22 BID ity of 18:16: 00:00 [place] 46 :00 Medical Branch PROZAC 20 2019-0 2020- No 1 tab PO Uni vers MG ORAL CAP 3-09-22 BID ity of 18:16: 00:00 [place] 46 :00 Medical Branch XANAX 2 MG 2019-0 2020- No 1 tab PO [place] ORAL TAB 3-23 - BID ity of 18:16: 00:00 [place] 39 :00 Medical Branch XANAX 2 MG 2020-0 2020- No 1 tab PO [place] ORAL TAB 3-22 09- BID ity of 18:16: 00:00 [place] 39 :00 Medical Branch XANAX 2 MG 2020-0 2020- No 1 tab PO [place] ORAL TAB 3-23 09-22 BID ity of 18:16: 00:00 [place] 39 :00 Medical Branch NEXIUM 40 2020-0 2020- No 1 tab PO Uni vers MG ORAL 3-23 03-23 daily ity of CPDR 18:16: 00:00 [place] 30 :00 Medical Branch NEXIUM 40 2020-0 2020- No 1 tab PO Uni vers MG ORAL 09-22 daily ity of CPDR 18:16: 00:00 [place] 30 :00 Medical Branch NEXIUM 40 2020-0 2020- No 1 tab PO Uni vers MG ORAL 09-22 daily ity of CPDR 18:16: 00:00 [place] 30 :00 Medical Branch BUPROPION 2020-0 2020- No 2 tabs PO Un [place] HCL 75 MG 09-22 BID ity of ORAL TAB 18:15: 00:00 [place] 43 :00 Medical Branch BUPROPION 2019-0 2020- No 2 tabs PO [place] HCL 75 MG 09-22 BID ity of ORAL TAB 18:15: 00:00 [place] 43 :00 Medical Branch BUPROPION 2019-0 2020- No 2 tabs PO [place] HCL 75 MG 09-22 BID ity of ORAL TAB 18:15: 00:00 [place] 43 :00 Medical Branch benzonatate 2019-0 2020- No [id number] 100mg Take 1 Univers (TESSALON 3-23 04-14 capsule by ity of PERLES) 100 00:00: 04:59 mouth 3 [place] mg capsule 00 :00 (three) Medica l times Branch daily as needed for Cough for up to 21 days. benzonatate 2019-0 2020- No [id number] 100mg Take 1 Univers (TESSALON 3-23 04-14 capsule by ity of PERLJASIEL) 100 00:00: 04:59 mouth 3 [place] mg capsule 00 :00 (three) Medica l times Branch daily as needed for Cough for up to 21 days. benzonatate 2020-0 2020- No [id number] 100mg Take 1 Univers (TESSALON 3-23 04-14 capsule by ity of PERLES) 100 00:00: 04:59 mouth 3 [place] mg capsule 00 :00 (three) Medica l times Branch daily as needed for Cough for up to 21 days. benzonatate 2019-0 2020- No [id number] 100mg Take 1 Univers (TESSALON 3-23 04-14 capsule by ity of PERLES) 100 00:00: 04:59 mouth 3 [place] mg capsule 00 :00 (three) Medica l times Branch daily as needed for Cough for up to 21 days. benzonatate 2020- No [id number] 100mg Take 1 Univers (TESSALON 3-23 04-14 capsule by ity of ADAM) 100 00:00: 04:59 mouth 3 [place] mg capsule 00 :00 (three) Medica l times Branch daily as needed for Cough for up to 21 days. ibuprofen 2019- No 800mg Take 1 Univ ers 800 mg 07-14 tablet by ity of tablet 00:00: 00:00 mouth [place] 00 :00 every 6 Medical (six) Branch hours as needed for Pain (scale 4-6). cyclobenzap 2019- No 5mg Take 1 Uni vers rine 5 mg 07-14 tablet by ity of tablet 00:00: 00:00 mouth 3 [place] 00 :00 (three) Medical times Branch daily as needed for Muscle Spasms. HYDROcodone 2019- No 1{tbl} Take 1 U nivers -acetaminop 07-14 tablet by it y of hen 5-325 00:00: 00:00 mouth [place] mg tablet 00 :00 every 6 Medical (six) Branch hours as needed for Pain (scale 4-6) or Pain (scale 7-10). ibuprofen 2019- No 800mg Take 1 Univ ers 800 mg 07-14 tablet by ity of tablet 00:00: 00:00 mouth [place] 00 :00 every 6 Medical (six) Branch hours as needed for Pain (scale 4-6). cyclobenzap 2020- No 5mg Take 1 Uni vers rine 5 mg 07-14 tablet by ity of tablet 00:00: 00:00 mouth 3 [place] 00 :00 (three) Medical times Branch daily as needed for Muscle Spasms. HYDROcodone 2020- No 1{tbl} Take 1 U nivers -acetaminop 07-1423 tablet by it y of hen 5-325 00:00: 00:00 mouth [place] mg tablet 00 :00 every 6 Medical (six) Branch hours as needed for Pain (scale 4-6) or Pain (scale 7-10). ibuprofen 2020- No 800mg Take 1 Univ ers 800 mg 07-14 tablet by ity of tablet 00:00: 00:00 mouth [place] 00 :00 every 6 Medical (six) Branch hours as needed for Pain (scale 4-6). cyclobenzap 2019- No 5mg Take 1 Uni vers rine 5 mg 07-14 tablet by ity of tablet 00:00: 00:00 mouth 3 [place] 00 :00 (three) Medical times Branch daily as needed for Muscle Spasms. HYDROcodone 2019- No 1{tbl} Take 1 U nivers -acetaminop 07-14 tablet by it y of hen 5-325 00:00: 00:00 mouth [place] mg tablet 00 :00 every 6 Medical (six) Branch hours as needed for Pain (scale 4-6) or Pain (scale 7-10). Vital Signs Vital Name Observation Time Observation Value Comments Source Systolic blood 2019-11-07 15:40:00 155 mm[Hg] [email or web address] Diastolic blood 2019-11-07 15:40:00 85 mm[Hg] Unive rsity of [facility] [[email or web address] Heart rate 2019-11-07 15:40:00 72 /min [facility] Body temperature 2019-11-07 15:40:00 36.67 Em [facility] Respiratory rate 2019-11-07 15:40:00 20 /min [facility] Oxygen saturation in 2019-11-07 15:40:00 95 /min [facility] Arterial blood by [facility] Pulse oximetry Branch Body height 2019-11-06 17:20:00 182.9 cm [facility] Body weight 2019-11-06 17:20:00 136.986 kg [facility] BMI 2019-11-06 17:20:00 40.96 kg/m2 [facility] Systolic blood 2019-11-07 15:40:00 155 mm[Hg] Univer sity [facility] Diastolic blood 2019-11-07 15:40:00 85 mm[Hg] Unive rsity of [facility] [[email or web address] Heart rate 2019-11-07 15:40:00 72 /min [facility] Body temperature 2019-11-07 15:40:00 36.67 Em Univ ersity of [place] [facility] Respiratory rate 2019-11-07 15:40:00 20 /min Univ ersity of [place] [facility] Oxygen saturation in 2019-11-07 15:40:00 95 /min University of Arterial blood by [facility] Pulse oximetry Branch Body height 2019-11-06 17:20:00 182.9 cm Universi ty of [place] [facility] Body weight 2019-11-06 17:20:00 136.986 kg Universi ty of [place] [facility] BMI 2019-11-06 17:20:00 40.96 kg/m2 Universi ty of [place] [facility] Systolic blood 2019-11-06 13:15:00 165 mm[Hg] Univer sity of pressure [place] [facility] Diastolic blood 2019-11-06 13:15:00 97 mm[Hg] Unive rsity of pressure [place] [facility] Heart rate 2019-11-06 13:11:00 79 /min Universi ty of [facility] Body temperature 2019-11-06 13:11:00 36.56 Em Univ ersity of [facility] Branch Respiratory rate 2019-11-06 13:11:00 18 /min Univ ersity of [place] [facility] Body height 2019-11-06 13:11:00 182.9 cm Universi ty of [place] [facility] Body weight 2019-11-06 13:11:00 138.347 kg Universi ty of [place] [facility] BMI 2019-11-06 13:11:00 41.37 kg/m2 [facility]i ty of [place] [facility] Oxygen saturation in 2019-11-06 13:11:00 98 /min University of Arterial blood by [facility] Pulse oximetry Branch Systolic blood 2019-11-06 13:15:00 165 mm[Hg] Univer sity of pressure [place] [facility] Diastolic blood 2019-11-06 13:15:00 97 mm[Hg] Unive rsity of [facility] [place] [facility] Heart rate 2019-11-06 13:11:00 79 /min Universi ty [facility] [place] [facility] Body temperature 2019-11-06 13:11:00 36.56 Em Univ ersity of [place] [facility] Respiratory rate 2019-11-06 13:11:00 18 /min Univ ersity of [place] [facility] Body height 2019-11-06 13:11:00 182.9 cm Universi ty of [place] [facility] Body weight 2019-11-06 13:11:00 138.347 kg Universi ty of [facility] BMI 2019-11-06 13:11:00 41.37 kg/m2 Universi ty of [facility] Branch Oxygen saturation in 2019-11-06 13:11:00 98 /min University of Arterial blood by [facility] Pulse oximetry Branch Systolic blood 2019-09-23 18:07:00 145 mm[Hg] Univer sity of pressure [facility] Diastolic blood 2019-09-23 18:07:00 89 mm[Hg] Unive rsity of pressure [facility] Heart rate 2019-09-23 18:07:00 88 /min Universi ty of [facility] Body temperature 2019-09-23 18:07:00 37.17 Em Univ ersity of [facility] Body height 2019-09-23 18:07:00 180.3 cm Universi ty of [facility] Body weight 2019-09-23 18:07:00 138.347 kg Universi ty of [facility] BMI 2019-09-23 18:07:00 42.54 kg/m2 Universi ty of [facility] Branch Oxygen saturation in 2019-09-23 18:07:00 97 /min University of Arterial blood by [facility] Pulse oximetry Branch Systolic blood 2019-09-23 18:07:00 145 mm[Hg] Univer sity of pressure [facility] Diastolic blood 2019-09-23 18:07:00 89 mm[Hg] Unive rsity of pressure [facility] Heart rate 2019-09-23 18:07:00 88 /min Universi ty of [facility] Body temperature 2019-09-23 18:07:00 37.17 Em Univ ersity of [facility] Body height 2019-09-23 18:07:00 180.3 cm Universi ty of [facility] Branch Body weight 2019-09-23 18:07:00 138.347 kg Universi ty of [facility] Branch BMI 2019-09-23 18:07:00 42.54 kg/m2 Universi ty of [facility] Branch Oxygen saturation in 2019-09-23 18:07:00 97 /min University of Arterial blood by [facility] Pulse oximetry Branch Procedures Procedure Date / Time Performing Clinician Source Performed NM MYOCARDIUM PERFUSION 2019-11-12 14:43:00 Antonino Hill [facility] STRESS AND REST [facility] NM MYOCARDIUM PERFUSION 2019-11-12 14:43:00 Antonino Hill [facility] STRESS AND REST [facility] POCT GLUCOSE (AUTOMATED) 2019-11-07 12:17:00 Tawanna mary [facility] TROPONIN I 2019-11-07 08:08:00 Tawanna [facility] TROPONIN I 2019-11-07 00:46:00 Tawanna [facility] POCT GLUCOSE (AUTOMATED) 2019-11-06 23:52:00 Tawanna mary [facility] PROTEIN CREAT RATIO 2019-11-06 23:27:00 Tawanna [facility] URINE RANDOM [facility] PROCALCITONIN 2019-11-06 21:59:00 Tawanna [facility] TROPONIN I 2019-11-06 21:31:00 Tawanna [facility] POCT GLUCOSE (AUTOMATED) 2019-11-06 20:49:00 Tawanna mary [facility] ECHO ROUTINE W/DOPPLER 2019-11-06 20:07:41 Tawanna mary [facility] COLOR [facility] POCT GLUCOSE (AUTOMATED) 2019-11-06 16:55:00 Rhea Stacy [facility] XR CHEST 1 VW COVID 2019-11-06 14:44:55 Khris Black [facility] CREATINE KINASE 2019-11-06 14:36:00 Tawanna [facility] LIPASE 2019-11-06 14:36:00 Wayne Khris [facility] TROPONIN I 2019-11-06 14:36:00 Wayne Khris [facility] THYROID STIMULATING 2019-11-06 14:36:00 Tawanna [facility] HORMONE [facility] HEPATIC FUNCTION PANEL 2019-11-06 14:36:00 Khris Black [facility] ([id number]) (ALB,T.PRO,BILI [facility] Branch T,BU/BC,ALT,AST,ALK PHOS) BASIC METABOLIC PANEL 2019-11-06 14:36:00 Khris Black [facility] (NA, K, CL, CO2, Medical Branch GLUCOSE, BUN, CREATININE, CA) LIPID PANEL 2019-11-06 14:36:00 Tawanan mary [facility] ([id number])(TOTAL Medical Branch CHOLESTEROL, TRIGLYCERIDES, HDL) CBC WITH DIFFERENTIAL 2019-11-06 14:36:00 Khris Black [facility] GLYCOSYLATED HEMOGLOBIN 2019-11-06 14:36:00 Tawanna mary [facility] (A1C) [facility] ACTIVATED PARTIAL 2019-11-06 14:36:00 Khris Black [facility] THRMPLAS N-TERMINAL PRO-BNP 2019-11-06 14:36:00 Khris Black [facility] EKG-12 LEAD 2019-11-06 14:20:35 Wayne [facility] EKG-12 LEAD 2019-11-06 14:08:11 Wayne [facility] XR CHEST 2 VW 2019-09-23 19:45:27 [facility] Start End Encounter Admission Attending Care Care Encounter Source Date/Time Date/Time Type Type Clinicians Facility Department ID 2020-10-09 2020-10-09 Outpatient [facility] [id number] Univers 14:20[facility] 2020-[facility] 2020-09-18 Outpatient [facility] [id number] Univers 12:55:00 [facility] 2020-09-12 2020-09-12 [facility] [id number] Univers 00:00:00 00:00:00 Outreach Mike PRIMARY [id number] i ty of [place] [id number] [id number] Mo dical 388 Branch 2019-12-13 2019-12-13 [facility] [id number] Univers 00:00:00 00:00:00 Adriana SPECIALTY [id number] ity of [id number] [id number] Mo dical VICTORY 314 Branch [facility] 2019-12-13 2019-12-13 Refill Hakeem [facility] [id number] 00:00:00 00:00:00 Adriana SPECIALTY [id number] CARE [id number] CENTER AT [id number] LAQUITA ROJAS 2019-12-10 2019-12-10 [facility] [id number] Univers 16:20:00 16:20:00 ADRIANA [id number] ity [facility] [place] [facility] 2019-11-22 2019-11-22 Outpatient R [facility] [id number] Univers 07:00:00 07:00:00 [id number] ity [facility] [place] [facility] 2019-11-22 2019-11-22 Outpatient R [facility] [id number] Univers 07:00:00 [facility] 2019-11-20 2019-11-20 Laboratory Only, [facility] Test [facility] [id number]. [id number] Univers 07:59:27 08:14:27 Only Thomas Lee [place] [id number] [facility] [id number] [place] Professio [id number] Mo dical [address] 2019-11-20 2019-11-20 Laboratory Only, [facility] [id number] 07:59:27 08:14:27 Only Test [place] [id number] [place] [id number] Professio [id number] [address] 2019-11-20 2019-11-20 Outpatient [facility] [id number] Univers 08:00:00 08:00:00 ity [facility] [place] [facility] 2019-11-20 2019-11-20 [facility] [id number] Univers 08:00:00 08:00:00 JONO kebede o f [facility] 2019-11-19 2019-11-19 [facility] [id number] Univers 13:00:00 13:00:00 KELY [id number] ity [facility] [place] [facility] 2019-11-19 2019-11-19 [facility] [id number] Univers 08:00:00 08:00:00 JONO hsiehy o f [facility] 2019-11-18 2019-11-18 Outpatient Hugo ALEXANDER [facility] [id number] Univers 13:30:00 13:30:00 THUY [id number] ity [facility] [place] [facility] 2019-11-18 2019-11-18 Outpatient Hugo ALEXANDER [facility] [id number] Univers 13:30:00 13:30:00 THUY ity [facility] [place] [facility] 2019-11-15 2019-11-15 Telephone Kelsea Hill [id number] Univers 00:00:00 00:00:00 Antonino Kang [id number] ity of [facility] [id number] [place] [id number] [address] 2019-11-15 2019-11-15 Telephone Kelsea Hill [id number] 00:00:00 00:00:00 Antonino Kang 350.1.13.10 Hospital 4.2.7.2.686 [phone] [facility] 2019-11-14 2019-11-14 Telephone Dylon Lipscomb [id number] [id number] Univers 00:00:00 00:00:00 Jono Pediatric 350.1.13.10 [place] [id number] [address] [facility] 2019-11-14 2019-11-14 Telephone Magdalena CALETI 1.2.785.845 [id number] Univers 00:00:00 00:00:00 Antonino Darling 350.1.13.10 [place] [phone] [address] 2019-11-14 2019-11-14 Telephone Kelsea Lipscomb [id number] [id number] Univers 00:00:00 00:00:00 Jono Kang 350.1.13.10 i ty of [facility] 4.2.7.2.686 [place] as [phone] [address] 2019-11-14 2019-11-14 Patient Doctor MAYRA 1.2.840.114 [id number] Univers 00:00:00 00:00:00 Secure Msg Unassigned, JORGE LUIS 350.1.13.10 [place]y [place] [facility] 4.2.7.2.686 [place] [phone] [address] 2019-11-14 2019-11-14 Telephone Dylon Lipscomb 1.2.101.691 [id number] 00:00:00 00:00:00 Qiangoswaldo Pediatric 350.1.13.10 s and 4.2.7.2.686 Adult [id number] [address] 2019-11-14 2019-11-14 [facility] 1.2.149.659 [id number] 00:00:00 00:00:00 Antonino Darling 350.1.13.10 [place] 4.2.7.2.686 [facility] [phone] [address] 2019-11-14 2019-11-14 Telephone JoyceKelsea 1.2.794.373 [id number] 00:00:00 00:00:00 Qiangoswaldo [place] 350.1.13.10 [facility] 4.2.7.2.686 [id number] [facility] 2019-11-14 2019-11-14 Patient Doctor MAYRA 1.2.840.114 [id number] 00:00:00 00:00:00 Secure Msg Unassigned, JORGE LUIS [facility].1.13.10 [facility] 4.2.7.2.686 [id number] 019 2019-11-12 2019-11-12 [facility] 1.2.840.114 [id number] 07:48:00 07:48:00 Encounter Antonino Darling 350.1.13.10 [place] 4.2.7.2.686 [place] [id number] 805 2019-11-12 2019-11-12 [facility] 1.2.840.114 [id number] 07:48:00 07:48:00 Encounter Antonino Darling 350.1.13.10 [place] 4.2.7.2.686 [place] [phone] [facility] 2019-11-12 2019-11-12 [facility] 1.2.840.114 [id number] Univers 07:48:00 07:48:00 Encounter Sendil Aries Darling 350.1.13.10 ity of [place] 4.2.7.2.686 [facility] [phone] [address] 2019-11-12 2019-11-12 [facility] 1.2.840.114 [id number] Univers 07:48:00 07:48:00 Encounter Sendil Aries Darling 350.1.13.10 ity of [place] 4.2.7.2.686 [facility] [phone] [address] 2019-11-11 2019-11-11 [facility] 1.2.840.114 [id number] 08:42:00 23:59:00 Encounter Sendbritta Darling 350.1.13.10 [place] 4.2.7.2.686 [place] [phone] [facility] 2019-11-11 2019-11-11 [facility] 1.2.840.114 [id number] Univers 08:42:00 23:59:00 Encounter Sendbritta Darling 350.1.13.10 ity of [place] 4.2.7.2.686 [facility] [phone] [address] 2019-11-11 2019-11-11 Outpatient R [facility] [id number] Univers 08:41:49 08:41:00 SENDIL ity of [facility] 2019-11-11 2019-11-11 [facility] 1.2.840.114 [id number] 08:00:00 08:41:00 Encounter Sendbritta Darling 350.1.13.10 [place] 4.2.7.2.686 [place] [phone] [facility] 2019-11-11 2019-11-11 [facility] 1.2.840.114 [id number] Univers 08:00:00 08:41:00 Encounter Antonino GregoryMilady Darling 350.1.13.10 ity of [place] 4.2.7.2.686 [facility] [phone] [facility] [address] 2019-11-06 2019-11-07 Emergency Khris Black [facility] 1.2.840. 114 [id number] 09:04:57 15:42:00 Rhea Stacy 350.1.13.10 [place] 4.2.7.2.686 [place] [phone] [facility] 2019-11-06 2019-11-07 Emergency Khris Black [facility] 1.2.840. 114 [id number] Univers 09:04:57 15:42:00 Tawanna Mauricemary [place] 350.1.13.10 ity of [place] 4.2.7.2.686 [facility] [phone] [facility] [address] 2019-11-06 2019-11-07 Outpatient X [facility] [id number] Univers 09:04:57 15:42:00 ADNAN ity [facility] 2019-11-06 2019-11-06 Urgent Pob1, Acute [facility] 1.2.840.114 [id number] 08:02:00 09:27:05 Care [facility] 350.1.13.10 [place] 4.2.7.2.686 Professio [phone] [place] [address] Office [facility] 2019-11-06 2019-11-06 Urgent Pob1, Acute Care Clinic [facility] 1. 2.840.114 [id number] Univers 08:02:00 09:27:05 Care Rubio, Samara A Health 350.1.13.10 ity of [place] 4.2.7.2.686 Rod as Professio [phone] Mo dical [address] Office Building One 2019-11-06 2019-11-06 Outpatient R [facility] [id number] -[id number] Univers 08:20:00 08:20:00 [id number] ity [facility] 2019-11-06 2019-11-06 Outpatient R [facility] [id number] Univers 08:20:00 08:20:00 ity of [facility] 2019-11-05 2019-11-05 Nurse MAYRA Ley 1.2.840.114 [id number] 00:00:00 00:00:00 Triage Katie KANG 350.1.13.10 HOSPITAL 4.2.7.2.686 [id number] 019 2019-11-05 2019-11-05 Nurse MAYRA Ley 1.2.840.114 [id number] Univers 00:00:00 00:00:00 Triage Katie KANG 350.1.13.10 it y of HOSPITAL 4.2.7.2.686 [place] [phone] [address] 2019-10-16 2019-10-16 Patient Doctor [place] 1.2.840.114 [id number] 00:00:00 00:00:00 Secure Msg Unassigned, SPECIALTY 350.1.13.10 [place] CARE 4.2.7.2.686 CENTER AT [phone] [address] 2019-10-16 2019-10-16 Patient Doctor [place] 1.2.840.114 [id number] Univers 00:00:00 00:00:00 Secure Msg Unassigned, SPECIALTY 350.1.13.10 [place]ARE [place] AT [phone] Mo zeke GARCIA[address] 2019-10-10 2019-10-10 Outpatient R HAKEEM [facility] [id number]-20 Univers 10:40:00 10:40:00 ADRIANA [id number] [facility] 2019-10-10 2019-10-10 Outpatient R HAKEEM [facility] [id number] Univers 10:40:00 10:40:00 ADRIANA [facility] 2019-10-10 2019-10-10 [facility] 1.2.840.114 [id number] 07:14:43 07:34:43 ne Visit Adriana SPECIALTY 350.1.13.10 CARE 4.2.7.2.686 CENTER AT [phone] [address] 2019-10-10 2019-10-10 Telemmarvin Negro [facility] 1.2.840.114 [id number] Univers 07:14:43 07:34:43 ne Visit Adriana SPECIALTY 350.1.13.10 ity of CARE 4.2.7.2.686 [facility] AT [phone] Mo zeke COELHO [address] [place] [address] 2019-09-30 2019-09-30 [facility] [id number] -[id number] [facility] 08:15:00 08:15:00 WILLARD [id number] ity [facility] 2019-09-23 2019-09-23 [facility] [id number] [facility] 14:28:43 23:59:00 HALLE ity [facility] 2019-09-23 2019-09-23 [facility] 1.2.840.114 [id number] 14:28:00 23:59:00 Encounter Halle [place] 350.1.13.10 [place] 4.2.7.2.686 [place] [id number] [facility] 2019-09-23 2019-09-23 [facility] 1.2.840.114 [id number] [facility] 14:28:00 23:59:00 Encounter Halle [place] 350.1.13.10 ity of [place] 4.2.7.2.686 [facility] [phone] [address] 2019-09-23 2019-09-23 [facility] [id number] -[id number] Univers 14:30:00 14:30:00 HALLE [id number] ity [facility] 2019-09-23 2019-09-23 Office Pob1, Acute [facility] 1.2.840.114 [id number] 12:56:46 13:16:46 Visit Care Clinic Health 350.1.13.10 [place] 4.2.7.2.686 Professio [phone] nal [address] 2019-09-23 2019-09-23 Office Pob1, Acute Care Clinic [facility] 1. 2.840.114 [id number] Univers 12:56:46 13:16:46 Visit Willard [facility] 350.1.13.10 ity of [place] 4.2.7.2.686 [place] as Professio [phone] Mo dical nal [address] 2016-09-22 2016-09-22 Emergency E [facility] [id number] [address] 15:56:00 15:56:00 [facility] Results Test Description Test Time Test Comments Results Result Comments Source POCT GLUCOSE (AUTOMATED) 2019-11-07 13:01:00 Test Item Value Reference Range Interpretation Comme nts POCT GLU (test code = 7602550652) 146 mg/dL 70-110 H Lab Interpretation (test code = 87858-6) Abnormal [facility] [id number] 09:53:00 Test Item Value Reference Range Interpretation Comments TROPONIN I (test <0.012 See_Comment [Automated code = 1063268340) message] The system which generated this result transmitted reference range : <=0.034 ng/mL. The reference range was not used to interpr et this result as normal/abnormal . BECKY (test code = Equal or Less than BECKY) 0.034 ng/ml---Normal ?Note: Cardiac troponin begins to rise 3-4 hours after the onset of ischemia. Repeat in 4-6 hours if the sample was drawn within 3-4 hours of the onset of the symptom and found normal. Between 0.035 and 0.120 ng/mL--- Borderline. Questionable myocardial injury or necrosis ? ?Note: Serial measurement may be necessary to confirm or exclude the diagnosis of myocardial injury or necrosis; Clinical correlation (symptoms, EKGs, imaging studies, and others) required; Repeat in 4-6 hours if clinically indicated. ? Equal or Higher than 0.121 ng/mL---Abnormal. Myocardial Injury or Necrosis Likely ? Biotin has been reported to cause a negative bias, interpret results relative to patient's use of biotin. ? Lab Interpretation Normal (test code = 97947-1) [facility]2020-[facility]-07 03:31:00 Test Item Value Reference Range Interpretation Comments Procalcitonin (test 0.04 ng/mL <0.07 code = 1727245197) BECKY (test code = BECKY) INTERPRETATION OF PROCALCITONIN RESULTS IN ADULTS >= 18 YEARS OF AGE Initiation and discontinuation of antibiotics on patients with suspected or confirmed Lower Respiratory Tract Infection in Adults >= 18 years of age. + +-------- --------+ + -----+|Procalcitonin |Interpretation ?|Antibiotic ? ? |Considerations ? |ng/mL ? | ?|recommendation | ? + +-------- --------+ + -----+| <0.1 ? | Bacterial ? ? ?| Strongly ? ? ?| ? | ?| infection very | discouraged ? | Overruling: ? | ?| unlikely ? ? ? | ? | ? Clinically unstable ? ? ? + +-------- --------+ + ? High risk for adverse ? ? | <0.25 ?| Bacterial ? ? ?| Discouraged ? | ? outcome ? | ?| infection ? ? ?| ? | ? SEE IMPORTANT NOTE ?| ?| unlikely ? ? ? | ? | ? + +-------- --------+ + -----+| >=0.25 ? ? ? | Bacterial ? ? ?| Encouraged ? ?| ? | ?| infection ? ? ?| ? | ? | ?| likely ? | ? | Consider treatment failure ?+ +------- ---------+ -+ if levels does not decrease | >0.5 ? | Bacterial ? ? ?| Strongly ? ? ?| appropriately ? | ?| infection very | encouraged ? ?| ? | ?| likely ? | ? | ? + +-------- --------+ + -----+ Discontinuation of antibiotics in high-acuity patients with suspected or confirmed sepsis in Adults >= 18 years of age. + +-------- --------+ + -----+|Procalcitonin |Interpretation ?|Antibiotic ? ? |Considerations ? |ng/mL ? | ?|recommendation | ? + +-------- --------+ + -----+| <0.25 ?| Bacterial ? ? ?| Strongly ? ? ?| ? | ?| infection very | discouraged ? | Overruling: ? | ?| unlikely ? ? ? | ? | ? Clinically unstable ? ? ? + +-------- --------+ + ? High risk for adverse ? ? | <0.5 or drop | Bacterial ? ? ?| Discouraged ? | ? outcome ? | >80% from ? ?| infection ? ? ?| ? | ? SEE IMPORTANT NOTE ?| highest PCT ?| unlikely ? ? ? | ? | ? | level ?| ?| ? | ? + +-------- --------+ + -----+| >=0.5 ?| Bacterial ? ? ?| Encouraged ? ?| ? | ?| infection ? ? ?| ? | ? | ?| likely ? | ? | Consider treatment failure ?+ +------- ---------+ -+ if levels does not decrease | >1.0 ? | Bacterial ? ? ?| Strongly ? ? ?| appropriately ? | ?| infection very | encouraged ? ?| ? | ?| likely ? | ? | ? + +-------- --------+ + -----+ Percentage of drop of Procalcitonin calculation for Discontinuation of antibiotics in high-acuity patients with suspected or confirmed sepsis in Adults >= 18 years of age. ? Procalcitonin highest{}-Procalcitonin current{}Delta Procalcitonin = x100% ? Procalcitonin current {} IMPORTANT NOTE: Procalcitonin may be elevated without bacterial infection by physiologic stress related to trauma, foreman, chronic dialysis, metastatic cancer, surgery in the past seven days, malaria, some fungal infections, and some forms of vasculitis. The interpretation algorithm may not apply to patients with immunosuppression (equivalent of >10 mg of prednisone daily), HIV with CD4 cell count < 350 cells/mm3, active malignancy on systemic chemotherapy, solid organ transplant or hematopoietic stem cell transplantation, or hospital acquired pneumonia. Additionally, some clinical trials of procalcitonin have excluded patients with shock requiring vasopressor use, acute respiratory failure requiring mechanical ventilation, or those with known lung abscess/empyema. For further information please refer to:[email or web address] Lab Interpretation Normal (test code = 89595-6) [facility] [id number] 01:10:00 Test Item Value Reference Range Interpretation Comments TROPONIN I (test <0.012 See_Comment [Automated code = 0075728661) message] The system which generated this result transmitted reference range : <=0.034 ng/mL. The reference range was not used to interpr et this result as normal/abnormal . BECKY (test code = Equal or Less than BECKY) 0.034 ng/ml---Normal ?Note: Cardiac troponin begins to rise 3-4 hours after the onset of ischemia. Repeat in 4-6 hours if the sample was drawn within 3-4 hours of the onset of the symptom and found normal. Between 0.035 and 0.120 ng/mL--- Borderline. Questionable myocardial injury or necrosis ? ?Note: Serial measurement may be necessary to confirm or exclude the diagnosis of myocardial injury or necrosis; Clinical correlation (symptoms, EKGs, imaging studies, and others) required; Repeat in 4-6 hours if clinically indicated. ? Equal or Higher than 0.121 ng/mL---Abnormal. Myocardial Injury or Necrosis Likely ? Biotin has been reported to cause a negative bias, interpret results relative to patient's use of biotin. ? Lab Interpretation Normal (test code = 05548-2) [facility]2019-11-07 00:01:00 Test Item Value Reference Range Interpretation Comments POCT GLU (test code = 6410659856) 147 mg/dL 70-110 H Lab Interpretation (test code = Abnormal 81120-6) [facility] CREAT RATIO URINE [id number] 00:00:00 Test Item Value Reference Range Interpretation Comments T. PROT U (test code = 2888-6) 9 mg/dL CREAT U (test code = 5885624275) 110.7 mg/dL Protein/Creatinine Ratio Urine 0.0-2.0 (test code = 8565133084) [facility] [id number] 22:19:00 Test Item Value Reference Range Interpretation Comments TROPONIN I (test <0.012 See_Comment [Automated code = 8522764526) message] The system which generated this result transmitted reference range : <=0.034 ng/mL. The reference range was not used to interpr et this result as normal/abnormal . BECKY (test code = Equal or Less than BECKY) 0.034 ng/ml---Normal ?Note: Cardiac troponin begins to rise 3-4 hours after the onset of ischemia. Repeat in 4-6 hours if the sample was drawn within 3-4 hours of the onset of the symptom and found normal. Between 0.035 and 0.120 ng/mL--- Borderline. Questionable myocardial injury or necrosis ? ?Note: Serial measurement may be necessary to confirm or exclude the diagnosis of myocardial injury or necrosis; Clinical correlation (symptoms, EKGs, imaging studies, and others) required; Repeat in 4-6 hours if clinically indicated. ? Equal or Higher than 0.121 ng/mL---Abnormal. Myocardial Injury or Necrosis Likely ? Biotin has been reported to cause a negative bias, interpret results relative to patient's use of biotin. ? Lab Interpretation Normal (test code = 42676-2) [facility] GLUCOSE (AUTOMATED)2019-11-06 21:53:00 Test Item Value Reference Range Interpretation Comments POCT GLU (test code = 0810525428) 132 mg/dL 70-110 H Lab Interpretation (test code = Abnormal 56332-8) [facility] GLUCOSE (AUTOMATED)2019-11-06 21:53:00 Test Item Value Reference Range Interpretation Comments POCT GLU (test code = 8363652894) 175 mg/dL 70-110 H Lab Interpretation (test code = Abnormal 52594-4) [facility] Marshall[facility]YROID STIMULATING [id number] 17:12:00 Test Item Value Reference Range Interpretation Comments TSH (test code = See_Comment [Automated message] 5626247210) The system [employer] generated this result transmitted ref erence range: 0.45 - 4 .70 mIU/L. The refe rence range was not u sed to interpret this result as normal/abnor mal. Lab Interpretation (test Normal code = 06430-3) [facility] Marshall[facility]AT[facility] [id number] 17:11:00 Test Item Value Reference Range Interpretation Comments CK (test code = 3014357784) 133 U/L 33-194 Lab Interpretation (test code = Normal 05484-6) [facility]YCOSYLATED HEMOGLOBIN (A1C)2019-11-06 16:52:00 Test Item Value Reference Interpretation Comments Range HGB A1C (test code = See_Comment H [Autom ated 4548-4) message] The system which generated this result transmitted reference range : 4.0 - 6.0 % NGSP. The reference range was not used to interpret this result as normal/abnormal . BECKY (test code = %A1C (NGSP) BECKY) Interpretation (ADA)4.8-5.6 ? ? Normal or (Non-Diabetic Range)5.7-6.4 ? ? Increased Risk (Pre-Diabetic)>6.5 ?Diabetes Indicated Lab Interpretation Abnormal (test code = 35516-1) [facility] Marshall[facility]IPID PANEL (61294)(TOTAL CHOLESTEROL, TRIGLYCERIDES, HDL)2019-11-06 16:40:00 Test Item Value Reference Range Interpretation Comments CHOL (test code = 251 mg/dL 120-200 H 5293112304) HDL (test code = 34 mg/dL >40 L 4587686172) HDLC RATIO (test code = See_Comment H [Au tomated message] 1241958415) The system [employer] generated this result transmit barbara reference range : <=5.0. The refe rence range was not u sed to interpret th is result as normal/abnormal . TRIG (test code = 287 mg/dL 30-170 H 4334106024) LDL CHOL (test code = 160 mg/dL See_Comment [Auto mated message] 36972-1) The system [employer] generated this result transmit barbara reference range : <=160. The refe rence range was not u sed to interpret th is result as normal/abnormal . VLDL (test code = 57 mg/dL 5-60 2489330474) Lab Interpretation (test Abnormal code = 34534-4) [facility] Marshall[facility]-TERMINAL [id number] 16:15:00 Test Item Value Reference Range Interpretation Comments NT-proBNP (test code 41 pg/mL See_Comment [Autom ated = 7538555898) message] The system which generated this result transmitted reference range : <=125. The reference range was not used to interpret this result as normal/abnormal . BECKY (test code = BECKY) Biotin has been reported to cause a negative bias, interpret results relative to patient's use of biotin. Lab Interpretation Normal (test code = 27497-1) [facility] MarshallTroponin [id number] 15:15:00 Test Item Value Reference Range Interpretation Comments TROPONIN I (test <0.012 See_Comment [Automated code = 4122073653) message] The system which generated this result transmitted reference range : <=0.034 ng/mL. The reference range was not used to interpr et this result as normal/abnormal . BECKY (test code = Equal or Less than BECKY) 0.034 ng/ml---Normal ?Note: Cardiac troponin begins to rise 3-4 hours after the onset of ischemia. Repeat in 4-6 hours if the sample was drawn within 3-4 hours of the onset of the symptom and found normal. Between 0.035 and 0.120 ng/mL--- Borderline. Questionable myocardial injury or necrosis ? ?Note: Serial measurement may be necessary to confirm or exclude the diagnosis of myocardial injury or necrosis; Clinical correlation (symptoms, EKGs, imaging studies, and others) required; Repeat in 4-6 hours if clinically indicated. ? Equal or Higher than 0.121 ng/mL---Abnormal. Myocardial Injury or Necrosis Likely ? Biotin has been reported to cause a negative bias, interpret results relative to patient's use of biotin. ? Lab Interpretation Normal (test code = 74926-0) [facility] MarshallaPTT2020-05-06 15:08:00 Test Item Value Reference Range Interpretation Comments APTT Patient (test See_Comment [Automat ed code = 3173-2) message] The system which generated this result transmitted reference range : 23 - 38 Seconds . The reference range was not used to interpr et this result as normal/abnormal . BECKY (test code = BECKY) The [facility] patient population mean normal value for aPTT is 30 seconds. Lab Interpretation Normal (test code = 87988-8) [facility] Marshall[facility] Metabolic Panel (NA, K, CL, CO2, GLUCOSE, BUN, CREATININE, CA)2019-11-06 15:03:00 Test Item Value Reference Range Interpretation Comments NA (test code = 138 mmol/L 135-145 8502619363) K (test code = 3.9 mmol/L 3.5-5 3411571850) CL (test code = 105 mmol/L 98-108 4224146029) CO2 TOTAL (test code = 25 mmol/L 23-31 1419681387) AGAP (test code = 2-16 7899576192) BUN (test code = 17 mg/dL 7-23 6508099667) GLUCOSE (test code = 145 mg/dL 70-110 H 5762107772) CREATININE (test code = 0.82 mg/dL 0.6-1.25 1291136578) CALCIUM (test code = 9.5 mg/dL 8.6-10.6 7713507254) eGFR Calculation mL/min/1.73m2 (Non-) (test code = 3509924283) eGFR Calculation mL/min/1.73m2 () (test code = 9473169967) BECKY (test code = BECKY) Association of Glomerular Filtration Rate (GFR) and Staging of Kidney Disease* + --+ --+ ------+| GFR (mL/min/1.73 m2) ?| With Kidney Damage ?| ?Without Kidney Damage+ --------+ --------+ +| ?>90 ?| ?Stage one ?| ? Normal ?+ ---+ ---+ -------+| ?60-89 ?| ?Stage two ?| ? Decreased GFR ? + --+ --+ ------+| ?30-59 ?| ?Stage three ?| ? Stage three ? + --+ --+ ------+| ?15-29 ?| ?Stage four ? | ? Stage four ?+ ---+ ---+ -------+| ?<15 (or dialysis) ? ?| ?Stage five ? | ? Stage five ?+ ---+ ---+ -------+ *Each stage assumes the associated GFR level has been in effect for at least three months. ?Stages 1 to 5, with or without kidney disease, indicate chronic kidney disease. Notes: Determination of stages one and two (with eGFR >59mL/min/1.73 m2) requires estimation of kidney damage for at least three months as defined by structural or functional abnormalities of the kidney, manifested by either:Pathological abnormalities or Markers of kidney damage (including abnormalities in the composition of the blood or urine or abnormalities in imaging tests). Lab Interpretation Abnormal (test code = 17736-5) [facility] Function [facility] (ALB, T.PRO, BILI T, BU/BC, ALT, AST, ALK PHOS)2019-11-06 15:03:00 Test Item Value Reference Range Interpretation Comments TOTAL BILI (test code = 5634636818) 0.5 mg/dL 0.1-1.1 BILI UNCON (test code = 6233188045) 0.5 mg/dL 0.1-1.1 BILI CONJ (test code = 3413434953) 0.0 mg/dL 0-0.3 T PROTEIN (test code = 7038319969) 7.9 g/dL 6.3-8.2 ALBUMIN (test code = 8343550587) 4.5 g/dL 3.5-5 ALK PHOS (test code = 9869750804) 75 U/L 34-122 ALTv (test code = 1742-6) 78 U/L 5-50 H AST(SGOT) (test code = 0979076815) 61 U/L 13-40 H Lab Interpretation (test code = Abnormal 43936-0) [facility] Marshall[facility]ase [id number] 15:03:00 Test Item Value Reference Range Interpretation Comments LIPASE (test code = 8662957730) 75 U/L 0-220 Lab Interpretation (test code = Normal 36557-7) [facility] Marshall[facility] CHEST 1 VW [id number] 14:53:49 PROCEDURE: CHEST XRAY , CLINICAL INDICATION: chest pain COMPARISON: None FINDINGS: Lungs: The lungs are well expanded and clear. The heart and great vesselsare normal. The tip of a left subclavian line passes through the superiorvena cava and right atrium, and its tip may be in the inferior vena cava . Pleura: No pleural effusion or pneumothorax is seen. No acute bony abnormality. Disclaimer: Generally, the findings on chest imaging in COVID-19 are notspecific, and overlap with other infections, including influenza, H1N1,SARS and MERS.According to the Centers for Disease Control (CDC) and the [employer], viral testing remains the only specific method of diagnosiseven if CXR or CT findings are suggestive of COVID-19. [facility], Radiant Results Inft User - 11/06/2019 9:54 AM CDTPROCEDURE: CHEST XRAY , CLINICAL INDICATION: chest pain COMPARISON: NoneFINDINGS:Lungs: The lungs are well expanded and clear. The heart and great vesselsare normal. The tip of a left subclavian line passes through the superiorvena cava and right atrium, and its tip may be in the inferior vena cava.Pleura: No pleural effusion or pneumothorax is seen.No acute bony abnormality.Disclaimer: Generally, the findings on chest imaging in COVID-19 are notspecific, and overlap with other infections, including influenza, H1N1,SARS and MERS.According to the Centers for Disease Control (CDC) and the [employer], viral testing remains the only specific method of diagnosiseven if CXR or CT findings are suggestive of COVID-19.[facility] WITH [id number] 14:52:00 Test Item Value Reference Range Interpretation Comments WBC (test code = See_Comment [Automated 5620-2) message] The sy stem which generated this result transmitted reference range : 4.20 - 10.70 10*3/?L. The reference range was not used to interpret this result as normal/abnormal . RBC (test code = See_Comment [Automated 789-8) message] The sy stem which generated this result transmitted reference range : 4.26 - 5.52 10*6/?L. The reference range was not used to interpret this result as normal/abnormal . HGB (test code = 13.3 g/dL 12.2-16.4 718-7) HCT (test code = 40.6 % 38.4-49.3 4544-3) MCV (test code = 81.7 fL 81.7-95.6 787-2) MCH (test code = 26.8 pg 26.1-32.7 785-6) MCHC (test code = 32.8 g/dL 31.2-35 786-4) RDW-SD (test code = 42.0 fL 38.5-51.6 52548-4) RDW-CV (test code = 14.3 % 12.1-15.4 788-0) PLT (test code = See_Comment [Automated 777-3) message] The sy stem which generated this result transmitted reference range : 150 - 328 10*3/ ?L. The reference r livia was not used to interpret this result as normal/abnormal . MPV (test code = 9.6 fL 9.8-13 L 76059-0) NRBC/100 WBC (test See_Comment [Automat ed code = [id number]) message] The system which generated this result transmitted reference range : 0.0 - 10.0 /100 WBCs. The refer ence range was not u sed to interpret th is result as normal/abnormal . NRBC x10^3 (test code <0.01 See_Comment [Auto mated = [id number]) message] The s ystem which generated this result transmitted reference range : 10*3/?L. The reference range was not used to interpret this result as normal/abnormal . GRAN MAT (NEUT) % 50.6 % (test code = 770-8) IMM GRAN % (test code 0.20 % = 8061772184) LYMPH % (test code = 34.0 % 736-9) MONO % (test code = 7.9 % 5905-5) EOS % (test code = 6.2 % 713-8) BASO % (test code = 1.1 % 706-2) GRAN MAT x10^3(ANC) 3.12 10*3/uL 1.99-6.95 (test code = 2796662077) IMM GRAN x10^3 (test <0.03 0-0.06 code = 6609132849) LYMPH x10^3 (test code 2.10 10*3/uL 1.09-3.23 = 731-0) MONO x10^3 (test code 0.49 10*3/uL 0.36-1.02 = 742-7) EOS x10^3 (test code = 0.38 10*3/uL 0.06-0.53 711-2) BASO x10^3 (test code 0.07 10*3/uL 0.01-0.09 = 704-7) Lab Interpretation Abnormal (test code = 28975-0) [facility] 2 [id number] 19:54:12 No acute cardiopulmonary process is identified. Preliminary Report Dictated by Resident: Jacki Bryant MD., have reviewed this study and agree with the abovereport.EXAM: XR CHEST 2 VW HISTORY: Cough and rib pain COMPARISON: Chest radiograph on 07/14/2016 FINDINGS: Mild vascular congestion without focal consolidation. No pleural effusion or pneumothorax. The heart size is normal. T he aorta is tortuous and partially calcified. No acute osseous abnormality is identified. Postsurgical changes ofanterior cervical discectomy and fusion. [facility], Radiant Results Inft User - 09/23/2019 2:55 PM CDTEXAM: XR CHEST 2 VWHISTORY: Cough and rib pain COMPARISON: Chest radiograph on 07/14/2016FIN DINGS:Mild vascular congestion without focal consolidation.No pleural effusion or pneumothorax. The heart size is normal. The aorta is tortuous and partially calcified. No acute osseous abnormality is identified. Postsurgical changes ofanterior cervical discectomy and fusion.IMPRESSIONNo acute cardiopulmonary process is identified.Preliminary Report Dictated by Resident: Jacki Garvey MD., have reviewed this study and agree with the abovereport.[facility]"
[2021-06-02] MEDS ORDERED: HYDROCORTISONE SUC 100 MG INJ ONE (09:31)
[2021-06-02] MEDS ORDERED: NA CHLORIDE 0.9% 1,000 ML ONE (09:32)
[2021-06-02] MEDS ORDERED: NA CHLORIDE 0.9% 500 ML ONE (09:32)
[2021-06-02 09:57] LABS: Absolute Lymphocytes (CBC) 1.6 K/uL (0.7-4.9); Basophils % 0.8 % (0-1.3); Hematocrit 36.4 % (39.6-49.0); Lymphocytes % 18.7 % (15.3-44.8); MPV 7.7 fL (7.6-11.3); RBC Red Blood Cell Count 4.65 M/uL (4.33-5.43)
--- NOTE | 2021-06-02 09:57 | RAD REPORT ---
EXAM DESCRIPTION: RAD - Chest Single View - 06/02/2021 9:52 am CLINICAL HISTORY: COUGH COMPARISON: Chest Single View dated 03/31/2021; Chest Single View dated 08/24/2020; Chest Pa And Lat ( 2 Views) dated 02/04/2020; Chest Single View dated 01/13/2020 FINDINGS: Lines: None. Lungs: No evidence of edema or pneumonia. Pleural: No significant pleural effusions or pneumothorax. Cardiac: The heart size is within normal limits. Bones: No acute fractures. ACDF in the cervical spine. Other: IMPRESSION: No acute cardiopulmonary disease.
--- NOTE | 2021-06-02 09:58 | RAD REPORT ---
EXAM DESCRIPTION: CT - Head Brain Wo Cont - 06/02/2021 9:49 am CLINICAL HISTORY: Dizziness;Syncope COMPARISON: No comparisons TECHNIQUE: All CT scans are performed using dose optimization technique as appropriate and may inclu de automated exposure control or mA/KV adjustment according to patient size. FINDINGS: No intracranial hemorrhage, hydrocephalus or extra-axial fluid collection.No areas of brai n edema or evidence of midline shift. The paranasal sinuses and mastoids are clear. The calvarium is intact. IMPRESSION: No acute intracranial abnormality.
[2021-06-02 10:01] LABS: Protime INR 1.06
[2021-06-02] MEDS ORDERED: ASPIRIN 81 MG CHEWABLE TABLET ONE (10:17)
[2021-06-02] MEDS ORDERED: FAMOTIDINE 20 MG/2 ML VIAL IV ONE (10:17)
[2021-06-02 10:25] LABS: ALT/SGPT 39 U/L (12-78); Albumin 3.3 g/dL (3.4-5.0); Alkaline Phosphatase 71 U/L (45-117); BUN Blood Urea Nitrogen 9 mg/dL (7-18); Bicarbonate 29 mmol/L (21-32); Bilirubin Direct < 0.1 mg/dL (0-0.2); Bilirubin Total 0.3 mg/dL (0.2-1.0); Glucose Level 104 mg/dL (74-106); NT PRO-BNP 88 pg/mL (<125); Sodium Level 142 mmol/L (136-145); Troponin (Emerg Dept Use Only) < 0.02 ng/mL (0.0-0.045)
[2021-06-02 10:29] LABS: AST/SGOT 29 U/L (15-37); Potassium 3.5 mmol/L (3.5-5.1)
--- NOTE | 2021-06-02 11:06 | ER ---
Nurse's Notes [facility] Name: Kalyan Banuelos Age: 56 yrs Sex: Male : 1965 Arrival Date: 06/02/2021 Time: 08:33 Bed 18 Private MD: Diagnosis: Chest pain, unspecified;Syncope Near-vasovagal;Obesity, unspecified Presentation: 06/02 08:32 Chief complaint: Patient states: Syncope, chest pain Nausea \T\ Vomiting: Patient sl2 presents to ED via [facility] - transferred from home with c/o Nausea, vomiting and weakness, onset yesterday - patient reports syncopal episode this morning with chest pain on exertion - still experiencing nausea - no vomiting today. Normal saline 500 ml IVF bolus and aspirin 324 mg PO administered by EMS en route to ED. Per EMS Orthostatic BP was positive with SBP/ heart rate 150/80 while sitting and 135/100 while standing. Patient denies chest pain at this time. 08:32 Coronavirus screen: Vaccine status: Patient reports receiving the 2nd dose of the covid sl2 vaccine. Ebola Screen: Patient negative for fever greater than or equal to 101.5 degrees Fahrenheit, and additional compatible Ebola Virus Disease symptoms Patient denies exposure to infectious person. Patient denies travel to an Ebola-affected area in the 21 days before illness onset. No symptoms or risks identified at this time. Initial Sepsis Screen: Does the patient meet any 2 criteria? Yes No. Patient's initial sepsis screen is negative. Does the patient have a suspected source of infection? No. Patient's initial sepsis screen is negative. Risk Assessment: Do you want to hurt yourself or someone else? Patient reports no desire to harm self or others. Onset of symptoms was June 01, 2021. 08:32 Method Of Arrival: EMS: [facility] 08:32 Acuity: FREDERICK 2 sl2 Triage Assessment: 08:32 General: Appears uncomfortable, well groomed, well developed, Behavior is calm, sl2 cooperative, appropriate for age. Pain: Denies pain. - Family history:: not pertinent. Screenin:40 Abuse screen: Denies threats or abuse. Denies injuries from another. Nutritional sl2 screening: No deficits noted. Tuberculosis screening: No symptoms or risk factors identified. Fall Risk None identified. Vital Signs: 08:32 BP 140 / 87; Pulse 75; Resp 20; Temp 98.5; Pulse Ox 98% ; Weight 123.38 kg; Height 6 sl2 ft. (182.88 cm); 09:52 BP 140 / 87; Pulse 75; Resp 20; Temp 98.5; Pulse Ox 98% ; sl2 10:15 BP 177 / 78; Pulse 78; Resp 18; Temp 98.4; Pulse Ox 99% on R/A; sl2 08:32 Body Mass Index 36.89 (123.38 kg, 182.88 cm) sl2 ED Course: 08:32 Arm band placed on. sl2 08:33 Patient arrived in ED. ap3 08:37 Chantelle Carney, DASH is Primary Nurse. sl2 08:40 Maintain EMS IV. Dressing intact. Good blood return noted. Site clean \T\ dry. Gauge \T\ sl 2 site: # 18 right antecubital . 08:40 Patient has correct armband on for positive identification. Placed in gown. Bed in low sl2 position. Call light in reach. Side rails up X2. 08:43 Howard Akins MD is Attending Physician. kaylene 09:03 EKG done, by ED staff, reviewed by Howard Akins MD. em1 09:26 Triage completed. sl2 09:49 CT Head Brain wo Cont In Process Unspecified. EDMS 09:53 XRAY Chest (1 view) In Process Unspecified. EDMS 11:05 Vin Meredith MD is Referral Physician. kaylene 11:05 Philip Christie MD is Referral Physician. kaylene 13:04 No provider procedures requiring assistance completed. IV discontinued, intact, ss bleeding controlled, No redness/swelling at site. Pressure dressing applied. Administered Medications: 09:27 Drug: NS 0.9% 500 ml Route: IV; Rate: bolus; Site: right antecubital; sl2 09:31 Drug: Solu-CORTEF (hyrdoCORTISONE) 100 mg Route: IVP; Site: right antecubital; sl2 09:40 Drug: Aspirin Chewable Tablet 162 mg Route: PO; sl2 09:40 Drug: Pepcid (famotidine) 20 mg Route: IVP; Site: left antecubital; sl2 11:00 Drug: NS 0.9% 1000 ml Route: IV; Rate: 125 ml/hr; Site: right antecubital; sl2 Outcome: 11:05 Discharge ordered by MD. maurice 13:04 Discharged to home ambulatory. 13:04 Condition: good 13:04 Discharge instructions given to patient, Instructed on discharge instructions, follow up and referral plans. Demonstrated understanding of instructions, follow-up care. 13:04 Patient left the ED. Signatures: Dispatcher [employer] EDSD Howard Akins MD MD cha Martinez, Eric em1 Sherine Barreto RN RN Linda Clinton RN RN ap3 Chantelle Carney RN RN sl2
--- NOTE | 2021-06-02 11:06 | EDPHYS ---
Physician Documentation [facility] Name: Kalyan Banuelos Age: 56 yrs Sex: Male : 1965 Arrival Date: 06/02/2021 Time: 08:33 Bed 18 Private MD: ED Physician Howard Akins HPI: 06/02 09:33 This 56 yrs old Male presents to ER via EMS with complaints of syncope, kaylene vomiting and weakness. 09:33 The patient or guardian reports chest pain that is located primarily in the anterior kaylene chest wall, bilaterally. Onset: just prior to arrival. The patient has experienced syncope, became unresponsive. Onset: The symptoms/episode began/occurred just prior to arrival, this morning. Duration: This was a single episode, that lasted 10 second(s). The pain does not radiate. Context: the episode(s) was witnessed, by no one, occurred at home, occurred while the patient was bending over. Associated signs and symptoms: The patient has no apparent associated signs or symptoms. The chest pain is described as aching. Modifying factors: The symptoms are alleviated by nothing. the symptoms are aggravated by nothing. - Family history:: not pertinent. ROS: 09:33 Constitutional: Negative for fever, chills, and weight loss, Eyes: Negative for injury, kaylene pain, redness, and discharge, ENT: Negative for injury, pain, and discharge, Neck: Negative for injury, pain, and swelling, Respiratory: Negative for shortness of breath, cough, wheezing, and pleuritic chest pain, Abdomen/GI: Negative for abdominal pain, nausea, vomiting, diarrhea, and constipation, Back: Negative for injury and pain, : Negative for injury, bleeding, discharge, and swelling, MS/Extremity: Negative for injury and deformity, Skin: Negative for injury, rash, and discoloration, Psych: Negative for depression, anxiety, suicide ideation, homicidal ideation, and hallucinations, Allergy/Immunology: Negative for hives, rash, and allergies, Endocrine: Negative for neck swelling, polydipsia, polyuria, polyphagia, and marked weight changes, Hematologic/Lymphatic: Negative for swollen nodes, abnormal bleeding, and unusual bruising. 09:33 Cardiovascular: Positive for chest pain, of the anterior aspect of left upper chest. 09:33 Neuro: Positive for headache. Exam: 09:33 Constitutional: This is a well developed, well nourished patient who is awake, alert, kaylene and in no acute distress. Head/Face: Normocephalic, atraumatic. Eyes: Pupils equal round and reactive to light, extra-ocular motions intact. Lids and lashes normal. Conjunctiva and sclera are non-icteric and not injected. Cornea within normal limits. Periorbital areas with no swelling, redness, or edema. ENT: Nares patent. No nasal discharge, no septal abnormalities noted. Tympanic membranes are normal and external auditory canals are clear. Oropharynx with no redness, swelling, or masses, exudates, or evidence of obstruction, uvula midline. Mucous membranes moist. Neck: Trachea midline, no thyromegaly or masses palpated, and no cervical lymphadenopathy. Supple, full range of motion without nuchal rigidity, or vertebral point tenderness. No Meningismus. Chest/axilla: Normal chest wall appearance and motion. Nontender with no deformity. No lesions are appreciated. Cardiovascular: Regular rate and rhythm with a normal S1 and S2. No gallops, murmurs, or rubs. Normal PMI, no JVD. No pulse deficits. Respiratory: Lungs have equal breath sounds bilaterally, clear to auscultation and percussion. No rales, rhonchi or wheezes noted. No increased work of breathing, no retractions or nasal flaring. Abdomen/GI: Soft, non-tender, with normal bowel sounds. No distension or tympany. No guarding or rebound. No evidence of tenderness throughout. Back: No spinal tenderness. No costovertebral tenderness. Full range of motion. Male : Normal genitalia with no discharge or lesions. Skin: Warm, dry with normal turgor. Normal color with no rashes, no lesions, and no evidence of cellulitis. MS/ Extremity: Pulses equal, no cyanosis. Neurovascular intact. Full, normal range of motion. Neuro: Awake and alert, GCS 15, oriented to person, place, time, and situation. Cranial nerves II-XII grossly intact. Motor strength 5/5 in all extremities. Sensory grossly intact. Cerebellar exam normal. Normal gait. Psych: Awake, alert, with orientation to person, place and time. Behavior, mood, and affect are within normal limits. 09:33 ECG was reviewed by the Attending Physician. Vital Signs: 08:32 BP 140 / 87; Pulse 75; Resp 20; Temp 98.5; Pulse Ox 98% ; Weight 123.38 kg; Height 6 sl2 ft. (182.88 cm); 09:52 BP 140 / 87; Pulse 75; Resp 20; Temp 98.5; Pulse Ox 98% ; sl2 10:15 BP 177 / 78; Pulse 78; Resp 18; Temp 98.4; Pulse Ox 99% on R/A; sl2 08:32 Body Mass Index 36.89 (123.38 kg, 182.88 cm) sl2 MDM: 08:43 Patient medically screened. kaylene 09:37 Differential diagnosis: abnormal EKG, anxiety, chest wall pain, hiatal hernia, kaylene pancreatitis, pulmonary embolus, stable angina, unstable angina. HEART Score: History: Slightly Suspicious (0), ECG: Normal (0), Age: > 45 and < 65 years (1), Risk Factors: 1 or 2 risk factors (1), [+ Family HX] [Obesity]. Differential Diagnosis: cardiac arrhythmia, cerebrovascular accident, emotional response, GI bleed, pseudo seizure, seizure, vasovagal episode. The patient was given aspirin in the Emergency Department. The patient's deep vein thrombosis risk score was calculated as follows: Total Score: 0. This patient was found to be at low risk for a deep vein thrombosis by using the Well's assessment criteria. The patient's pulmonary embolism risk score was calculated as follows: Total Score: 0-2 points. This patient was found to be at low risk for a pulmonary embolism by using the Well's assessment criteria. EMIR Risk Score: TOTAL SCORE = 0. Data reviewed: vital signs, nurses notes, lab test result(s), EKG, radiologic studies, CT scan, plain films. Data interpreted: night monitor: rate is 75 beats/min, rhythm is regular, Pulse oximetry: on room air is 98 %. Test interpretation: by ED physician or midlevel provider: ECG, plain radiologic studies. Counseling: I had a detailed discussion with the patient and/or guardian regarding: the historical points, exam findings, and any diagnostic results supporting the discharge/admit diagnosis, lab results, radiology results, the need for outpatient follow up, for definitive care, a grade and center marker, an bridge worker. 06/02 09:23 Order name: Basic Metabolic Panel kaylene 06/02 09:23 Order name: CBC with Diff [facility] 06/02 09:23 Order name: LFT's [facility] 06/02 09:23 Order name: Magnesium; Complete Time: 11:04 [facility] 06/02 09:23 Order name: NT PRO-BNP; Complete Time: 11:04 [facility] 06/02 09:23 Order name: PT-INR; Complete Time: 10:22 [facility] 06/02 09:23 Order name: Troponin (emerg Dept Use Only); Complete Time: 11:04 [facility] 06/02 09:23 Order name: XRAY Chest (1 view); Complete Time: 10:22 [facility] 06/02 09:23 Order name: CT Head Brain wo Cont; Complete Time: 10:22 [facility] 06/02 09:23 Order name: D-Dimer; Complete Time: 10:22 [facility] 06/02 09:23 Order name: Basic Metabolic Panel; Complete Time: 11:04 [facility] 06/02 09:23 Order name: CBC with Automated Diff; Complete Time: 10:22 [facility] 06/02 09:23 Order name: Liver (Hepatic) Function; Complete Time: 11:04 [facility] 06/02 11:59 Order name: Urine Dipstick-Ancillary [facility] 06/02 09:23 Order name: EKG; Complete Time: 09:24 [facility] 06/02 09:23 Order name: Cardiac monitoring [facility] 06/02 09:23 Order name: EKG - Nurse/Tech; Complete Time: 10:01 [facility] 06/02 09:23 Order name: IV Saline Lock [facility] 06/02 09:23 Order name: Labs collected and sent [facility] 06/02 09:23 Order name: O2 Per Protocol [facility] 06/02 09:23 Order name: O2 Sat Monitoring [facility] 06/02 09:23 Order name: Urine Dipstick-Ancillary (obtain specimen) [facility] 06/02 11:05 Order name: Orthostatics: IF NEG DC; Complete Time: 12:38 [facility] EC:33 Rate is 74 beats/min. Rhythm is regular. QRS [place] is Normal. CA interval is normal. QRS kaylene interval is normal. QT interval is normal. No Q waves. T waves are Normal. No ST changes noted. Clinical impression: Normal ECG and No evidence of ischemia. Interpreted by me. Reviewed by me. Administered Medications: :27 Drug: NS 0.9% 500 ml Route: IV; Rate: bolus; Site: right antecubital; sl2 09:31 Drug: Solu-CORTEF (hyrdoCORTISONE) 100 mg Route: IVP; Site: right antecubital; sl2 09:40 Drug: Aspirin Chewable Tablet 162 mg Route: PO; sl2 09:40 Drug: Pepcid (famotidine) 20 mg Route: IVP; Site: left antecubital; sl2 11:00 Drug: NS 0.9% 1000 ml Route: IV; Rate: 125 ml/hr; Site: right antecubital; sl2 Disposition Summary: 06/02/21 11:05 Discharge Ordered Location: Home kaylene Problem: new kaylene Symptoms: have improved kaylene Condition: Stable kaylene Diagnosis - Chest pain, unspecified kaylene - Syncope Near - vasovagal kaylene - Obesity, unspecified kaylene Followup: kaylene - With: Private Physician - When: 2 - 3 days - Reason: Recheck today's complaints, Continuance of care, Re-evaluation by your physician Followup: kaylene - With: - When: 2 - 3 days - Reason: Recheck today's complaints, Continuance of care, Re-evaluation by your physician Followup: kaylene - With: - When: 2 - 3 days - Reason: Recheck today's complaints, Continuance of care, Re-evaluation by your physician Discharge Instructions: - Discharge Summary Sheet kaylnee - Nonspecific Chest Pain, Adult kaylene - Near-Syncope kaylene - Obesity, Adult kaylene - Syncope kaylene - Weakness kaylene - Nonspecific Chest Pain, Adult, Deiu-rn-[id number] kaylene - Syncope, Fdfm-[id number] kaylene - Weakness, Xeff-nd-Uvxk kaylene - Aspirin and Your Heart kaylene Forms: - Medication Reconciliation Form kaylene - Thank You Letter kaylene - Antibiotic Education kaylene - Prescription Opioid Use kaylene Signatures: Dispatcher [employer] Howard Mays MD MD cha Landell, Sophia, RN RN sl2
[2021-06-02 11:59] LABS: Urine Blood Negative (Negative); Urine Glucose Negative (Negative); Urine Protein Negative (Negative); Urine Specific Gravity 1.015 (1.005-1.030); Urine pH 7.5 (5.0-7.0)
[2021-06-02 13:13] VITALS: BP 177/78; TEMP 98.4; O2SAT 99
== END 2021-06-02 13:04 | disposition home or self-care (01) ==
LOC: ER 08:29
DX: R07.9 Chest pain, unspecified (principal); E66.9 Obesity, unspecified
CPT/HCPCS: 93005; 85025; 80048; 36415; 83735; 85610; 85379; 80076; 81003; 84484; 83880; 70450; 71045; 99284; J7040; J7030; J1720